=== PATIENT | female | born 1955 | race Caucasian/White ===

== ENCOUNTER 2020-02-13 09:29 | Outpatient (CLI) | payer MEDICARE, SELFPAY ==
--- NOTE | ~2020-02-13 | MM_ITS ---
EXAMINATION: MM screening isabell BI w pilar HISTORY: Screening mammogram TECHNIQUE: Craniocaudal and mediolateral oblique 3-D tomosynthesis images were obtained and synthetic 2-D images were generated. CAD analysis was submitted and interpreted. COMPARISON: 12/31/2018, 12/19/2017 bilateral digital screening mammogram examinations BREAST PARENCHYMAL COMPOSITION: The breasts are almost entirely fatty. FINDINGS: There is no evidence of suspicious mass, calcification, or architectural distortion to sugg est malignancy in either breast. There has been no suspicious interval change. IMPRESSION: 1. No mammographic evidence of malignancy. 2. Recommend routine screening mammography in one year. BI-RADS Category 1: Negative Reviewed, dictated and finalized at location A.
== END 2020-02-13 09:30 | disposition home or self-care (01) ==
PROVIDERS: PCP Family Medicine; Visit Provider Family Medicine
DX: Z12.31 Encounter for screening mammogram for malignant neoplasm of breast (principal)
CPT/HCPCS: 77063; 77067

== ENCOUNTER 2021-02-15 09:21 | Outpatient (CLI) | payer MEDICARE, SELFPAY ==
--- NOTE | ~2021-02-15 | MM_ITS ---
EXAMINATION: MM screening isabell BI w pilar HISTORY: Screening TECHNIQUE: Craniocaudal and mediolateral oblique 3-D tomosynthesis images were obtained and synthetic 2-D images were generated. CAD analysis was submitted and interpreted. COMPARISON: Comparison to multiple prior studies sequentially, with oldest reviewed study dated 12/13. BREAST PARENCHYMAL COMPOSITION: There are scattered areas of fibroglandular density. FINDINGS: There is no evidence of suspicious mass, calcification, or architectural distortion to sugg est malignancy in either breast. There has been no suspicious interval change. IMPRESSION: 1. No mammographic evidence of malignancy. 2. Recommend routine screening mammography in one year. BI-RADS Category 1: Negative Reviewed, dictated and finalized at location A.
== END 2021-02-15 09:22 | disposition home or self-care (01) ==
LOC: ANHIMG 09:23
PROVIDERS: PCP Family Medicine; Visit Provider Family Medicine
DX: Z12.31 Encounter for screening mammogram for malignant neoplasm of breast (principal)
CPT/HCPCS: 77063; 77067

== ENCOUNTER 2022-04-27 09:47 | Outpatient (CLI) | payer MEDICARE, SELFPAY ==
--- NOTE | ~2022-04-27 | MM_ITS ---
EXAMINATION: MM screening isabell BI w pilar HISTORY: Screening mammogram TECHNIQUE: Craniocaudal and mediolateral oblique 3-D tomosynthesis images were obtained and synthetic 2-D images were generated. CAD analysis was submitted and interpreted. COMPARISON: 02/15/2021, 02/13/2020, 12/31/2018 bilateral screening mammogram examinations BREAST PARENCHYMAL COMPOSITION: There are scattered areas of fibroglandular density. FINDINGS: There is no evidence of suspicious mass, calcification, or architectural distortion to sugg est malignancy in either breast. There has been no suspicious interval change. IMPRESSION: 1. No mammographic evidence of malignancy. 2. Recommend routine screening mammography in one year. BI-RADS Category 1: Negative Reviewed, dictated and finalized at location A.
== END 2022-04-27 09:48 | disposition home or self-care (01) ==
LOC: ANHIMG 09:49
PROVIDERS: PCP Family Medicine; Visit Provider Family Medicine
DX: Z12.31 Encounter for screening mammogram for malignant neoplasm of breast (principal)
CPT/HCPCS: 77063; 77067

== ENCOUNTER 2023-05-01 08:46 | Outpatient (CLI) | payer MEDICARE, SELFPAY ==
--- NOTE | ~2023-05-01 | DEXA_ITS ---
Bone Density Report Name: ALFREDITO CAMARGO Age: 68 Sex: Female Ethnicity: White Date of : 1955 Indication: postmenopausal; screening for osteoporosis; hysterectomy; rheumatoid arthritis; Referring Provider: LIZETTE, CLAYTON Candelraio Study: Bone densitometry was performed. Exam Date: May 01, 2023 Accession number: [id number] Bone Density: Region BMD T-score Z-score Classification AP Spine(L1-L4) 0.931 -1.1 1.0 Osteopenia Femoral Neck (Left) 0.781 -0.6 1.1 Normal Total Hip (Left) 0.887 -0.5 1.0 Normal Femoral Neck (Right) 0.792 -0.5 1.2 Normal Total Hip (Right) 0.901 -0.3 1.1 Normal Total Hip Mean 0.894 -0.4 1.1 Normal World Health Organization criteria for BMD impression classify patients as: Normal (T-score at or above -1.0), Osteopenia (T-score between -1.0 and -2.5), or Osteoporosis (T-score at or below -2.5). 10-year Fracture Risk(1): Major Osteoporotic Fracture 9.8% Hip Fracture 0.8% Reported Risk Factors: [place] (), Neck BMD=0.781, BMI=31.5, rheumatoid arthritis (1) FRAX(R) Version 3.08. Fracture probability calculated for an untreated patient. Fracture probability may be lower if the patient has received treatment. Clinical Information Provided by Patient: Has rheumatoid arthritis Has used the following medications: Vitamin D, Calcium Has the following medical conditions: Hysterectomy Patient maximum height was 62 Menopause Age: 29 Drinks caffeinated beverages Onset of menses at age 11 Number of children 2 Impression: The patient has low bone mass, based on the Total Spine T-score. The patient has an estimated ten-year risk of hip fracture of 0.8% and an estimated ten-year risk of major fracture of 9.8%, based on the WHO FRAX algorithm. Discussion: BONE DENSITY IS LOW AT ONE OR MORE SKELETAL SITES. This patient's lowest T-score is low at one or more skeletal sites. It meets the World Health Organization's (WHO) criteria for ?low bone mass? (T-score between -1.0 and -2.5). The patient's 10-year risk of fracture as calculated by FRAX is less than the threshold where pharmacological therapy is recommended by the National Osteoporosis Foundation (NOF). However, all treatment decisions require clinical judgment and consideration of individual patient factors, including patient preferences, comorbidities, previous drug use, risk factors not captured in the FRAX model (e.g., frailty, falls, vitamin D deficiency, increased bone turnover, interval significant decline in bone density) and possible under or overestimation of fracture risk by FRAX. The patient should follow a healthful lifestyle (good nutrition with adequate calcium and vitamin D, and appropriate weight-bearing exercise). Follow-Up: Consider repeating this study in 2 to 3 years to reassess this patient's st
--- NOTE | ~2023-05-01 | MM_ITS ---
EXAMINATION: MM screening isabell BI w pilar HISTORY: Screening mammogram TECHNIQUE: Craniocaudal and mediolateral oblique 3-D tomosynthesis images were obtained and synthetic 2-D images were generated. CAD analysis was submitted and interpreted. COMPARISON: 04/27/2022, 02/15/2021, 02/13/2020 bilateral screening mammogram examinations BREAST PARENCHYMAL COMPOSITION: There are scattered areas of fibroglandular density. FINDINGS: There is no evidence of suspicious mass, calcification, or architectural distortion to sugg est malignancy in either breast. There has been no suspicious interval change. IMPRESSION: 1. No mammographic evidence of malignancy. 2. Recommend routine screening mammography in one year. BI-RADS Category 1: Negative Reviewed, dictated and finalized at location A.
== END 2023-05-01 08:47 | disposition home or self-care (01) ==
LOC: ANHIMG 08:49
PROVIDERS: PCP Family Medicine; Visit Provider Family Medicine
DX: Z12.31 Encounter for screening mammogram for malignant neoplasm of breast (principal); Z78.0 Asymptomatic menopausal state; M85.88 Other specified disorders of bone density and structure, other site
CPT/HCPCS: 77063; 77067; 77080

== ENCOUNTER 2024-05-14 12:38 | Outpatient (CLI) | payer MEDICARE, SELFPAY ==
--- NOTE | ~2024-05-14 | MM_ITS ---
EXAMINATION: MM screening isabell BI w pilar HISTORY: Screening TECHNIQUE: Craniocaudal and mediolateral oblique 3-D tomosynthesis images were obtained and synthetic 2-D images were generated. CAD analysis was submitted and interpreted. COMPARISON: Comparison to multiple prior studies sequentially, with oldest reviewed study dated 12/27. BREAST PARENCHYMAL COMPOSITION: Not dense: There are scattered areas of fibroglandular density. FINDINGS: There is no evidence of suspicious mass, calcification, or architectural distortion to sugg est malignancy in either breast. There has been no suspicious interval change. IMPRESSION: 1. No mammographic evidence of malignancy. 2. Recommend routine screening mammography in one year. BI-RADS Category 1: Negative Reviewed, dictated and finalized at location B.
== END 2024-05-14 12:39 | disposition home or self-care (01) ==
PROVIDERS: PCP Family Medicine; Visit Provider Family Medicine
DX: Z12.31 Encounter for screening mammogram for malignant neoplasm of breast (principal)
CPT/HCPCS: 77063; 77067

== ENCOUNTER 2024-07-16 10:02 | Outpatient (CLI) | payer MEDICARE, SELFPAY ==
--- NOTE | 2024-07-17 12:54 | WPDPFTINT ---
PFT Procedure Performed PFT Procedure Performed Spirometry with Pre/Post Bronchodilator Plethysmography (Lung Vol) Diffusing Cap (DLCO) Flow Vol Loop PFT Interpretation Lung volumes were measured with the body plethysmography method. Lung volumes are unremarkable. Spirometry showed normal expiratory flow rates and a normal FEV1 to FVC ratio of 81%. Following administration of a bronchodilator there was no significant increase in expiratory flow rates. Lung diffusion capacity is within the normal range at 96% predicted. The flow-volume loop is unremarkable. Impression: Spirometry, lung volumes, and lung diffusion capacity all within the normal range.
== END 2024-07-16 10:03 | disposition home or self-care (01) ==
LOC: ANHPFT 10:05
PROVIDERS: PCP Family Medicine; Visit Provider Family Medicine
DX: R05.3 Chronic cough (principal)
CPT/HCPCS: 94060; 94726; 94729

== ENCOUNTER 2025-03-05 14:24 | Emergency (ER) | payer MEDICARE, SELFPAY ==
--- NOTE | ~2025-03-05 | CT_ITS ---
CTA chest abdomen pelvis Ordering provider: Mei Duckworth MD History: 70 years Female with . CP to jaw/back, h/o aneurysm; r/o aorta badness . Comparison: None. Technique: CT chest with IV contrast. CT abdomen and pelvis CT abdomen and pelvis with IV and with or al contrast. Radiation reduction technique utilized.The dose-length product was 548.20 mGy-cm. 100 mL Omnipaque 35 0 was given IV. FINDINGS: CHEST: --VISUALIZED THORACIC INLET: Normal. --MEDIASTINUM: Aorta/coronary arteries: Mild atheromatous disease. Ascending aorta measures 3.9 cm. Heart/other: The heart is not enlarged. Lymph nodes: No mediastinal or hilar adenopathy. --LUNGS: No pulmonary nodules or masses. No infiltrates or effusions. No pneumothorax. Dependent atel ectatic changes. --MUSCULOSKELETAL: Soft tissues: The superficial soft tissues are normal. Bones: Age appropriate degenerative changes of the spine. Bilateral sacroiliitis. Bilateral hip osteo arthritic changes. Pubic symphysitis. ABDOMEN/PELVIS: --MUSCULOSKELETAL: Bones: Age appropriate degenerative changes of the spine. No suspicious bony lytic or sclerotic lesio ns. Superficial soft tissues: The superficial soft tissues are normal. --UPPER ABDOMINAL ORGANS: Liver: Small hypodensities are seen adjacent to the gallbladder measuring 2.3 cm and 1.4 cm most like ly cysts. Gallbladder: Hyperdense focus in the gallbladder near to the fundus which may be a stone. Spleen: Normal. Stomach/duodenum: Normal. Pancreas: Normal. Adrenals: Normal. Kidneys: Normal. --PELVIC ORGANS: The bladder is normal. No bladder stones. --BOWEL AND MESENTERY: Colon: No evidence of diverticulitis.. Normal appendix. Small Bowel: Normal. No obstruction. Peritoneum/mesentery: No free air or free fluid. No mesenteric lymphadenopathy. --RETROPERITONEUM: Mild atheromatous disease of the abdominal aorta. The branches of the aorta are n ormal. No retroperitoneal lymphadenopathy. IMPRESSION: CHEST: 1. No pulmonary embolism or dissection. 2. The ascending aorta measures 3.9 cm 3. No acute cardiopulmonary pathology. ABDOMEN/PELVIS: 1. No evidence of aneurysmal dilatation seen. 2. Possible gallbladder stone versus calcification in the liver adjacent to the gallbladder. 3. Hypodensities in the liver most likely cysts. Ultrasound confirmation advised. 4. No evidence of appendicitis, diverticulitis or intestinal obstruction Reviewed, dictated and finalized at location A. IMPRESSION: CHEST: 1. No pulmonary embolism or dissection. 2. The ascending aorta measures 3.9 cm 3. No acute cardiopulmonary pathology. ABDOMEN/PELVIS: 1. No evidence of aneurysmal dilatation seen. 2. Possible gallbladder stone versus calcification in the liver adjacent to th e gallbladder. 3. Hypodensities in the liver most likely cysts. Ultrasound confirmation advis ed. 4. No evidence of appendicitis, diverticulitis or intestinal obstruction
--- NOTE | ~2025-03-05 | XR_ITS ---
EXAMINATION: XR chest 1V portable 03/05/2025 15:27 INDICATION: Chest pain PROCEDURE: AP portable chest COMPARISON: No prior studies for comparison. FINDINGS: The lungs are clear. The cardiomediastinal silhouette is within normal limits. There are no pleural effusions. There is no pneumothorax suspected. IMPRESSION: 1: NO ACUTE CARDIOPULMONARY DISEASE. Reviewed, dictated and finalized at location A.
[2025-03-05 14:28] VITALS: BP 136/90; PULSE 76; RESP 16; TEMP 36.8; O2SAT 97
--- NOTE | 2025-03-05 14:31 | ECG_ITS ---
Test Date: 2025-03-05 14:35:29 Measurements Intervals [place] Rate: 67 P: 29 ID: [id number] QRS: -34 QRSD: 89 T: 12 QT: 402 QTc: 425 Interpretive Statements SINUS RHYTHM LEFT AXIS DEVIATION LOW QRS VOLTAGE IN PRECORDIAL LEADS POSSIBLE RIGHT VENTRICULAR CONDUCTION DELAY POSSIBLE ANTERIOR MYOCARDIAL INFARCTION , PROBABLY OLD ABNORMAL ECG No previous ECG available for comparison Electronically Signed On 03-05-2025 14:56:30 CDT by Arnoldo Mercedes D.O.
--- OUTSIDE RECORDS SUMMARY | 2025-03-05 14:36 | XMS_ITS ---
Author Organization [facility] Address [address] [place] [address] Care Team Providers Care Diamond Expert Name Role Phone Shira Alcocer MD Primary Care Provider [phone] Derrick Varghese MD Unavailable Saroj Cornejo [facility] Unavailable Unavaila ble RxHI Specialty Therapies - REMICADE 600 mg IV EVERY 8 WEEKS Status:Enrolled (Active) Start date:02/07/2025 Enrollment date:02/07/2025 Linked medications:infliximab (Active) Related program episode:Home Infusion (Active) Overview Cutover complete Case Team Name Relationship Phone Saroj Cornejo [facility](Responsible Staff) Pharma cist Continued Care and Services Coordination
--- OUTSIDE RECORDS SUMMARY | 2025-03-05 14:36 | XMS_ITS ---
Author Organization [facility] Address [address] [place], [place] [id number] Care Team Providers Care Custodial Engineer Name Role Phone HARPREET CASTILLO Unavailable [phone] Shira Alcocer Unavailable Unavailable Allergies Allergen (clinical drug ingredient) Drug/Non Drug Allergy documented on EMR Reaction Allergy Type Onset Date Status cefaclor Ceclor (uncoded) Unknown Allergy 10/23/2019 ac tive REASON FOR VISIT toes piling up Vital Signs Weight 169 lbs 11/28/2024 Weight-kg 76.66 kg 11/28/2024 Height 61.00 in 11/28/2024 Height-cm 154.94 cm 11/28/2024 BMI 31.93 kg/m2 11/28/2024 Encounters Encounter Location Date Provider Diagnosis [facility] [address] [place], [place] [id number] 11/28/2024 HARPREET CASTILLO Metatarsalgia of right foot M77.41 ; 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 ; Other specified rheumatoid arthritis, right ankle and foot M06.871 ; Other specified rheumatoid arthritis, left ankle and foot M06.872 ; Hammer toe of right foot M20.41 ; Pain in right foot M79.671 and Left foot pain M79.672 Assessments Encounter Date Diagnosis (ICD Code) Assessment Notes Treatment Notes Treatment Clinical Notes Section Notes 11/28/2024 Metatarsalgia of right foot (ICD-10 - M77.41) 11/28/2024 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) 11/28/2024 Other specified rheumatoid arthritis, right ankle and foot (ICD-10 - M06.871) 11/28/2024 Other specified rheumatoid arthritis, left ankle and foot (ICD-10 - M06.872) 11/28/2024 Hammer toe of right foot (ICD-10 - M20.41) 11/28/2024 Pain in right foot (ICD-10 - M79.671) 11/28/2024 Left foot pain (ICD-10 - M79.672) 11/28/2024 Other Following skin prep, a total of 3 ccs of a 1-1-1 mix of 0.5% marcaine plain, Kenalog, and dexamethasone sodium phosphate was injected into the patients right second interspace Orthotic dispense: The orthotic devices were dispensed and fitted. It was noted that the orthotic conformed well to the patients foot in the subtalar joint neutral position. Plan Of Treatment Treatment Notes Assessment Notes Other Following skin prep, a total of 3 ccs of a 1-1-1 mix of 0.5% marcaine plain, Kenalog, and dexamethasone sodium phosphate was injected into the patients right second interspace Orthotic dispense: The orthotic devices were dispensed and fitted. It was noted that the orthotic conformed well to the patients foot in the subtalar joint neutral position. Progress Notes * ROVERTO CAMARGOOB:1955 ( 70 yo F)Acc No.[id number]:11/28/2024 Patient: ALFREDITO BARKER Provider: Elaine Castillo DPM :1955 A ge:69 Y S ex:Female Date:11/28/2024 Address:[address] [place] [address] Subjective: * Chief Complaints: * 1 . Toes piling up. * HPI: H PI: New Complaint E stablished patient presents with a new complaint. Patient complains of an issue to corn in both feet causing pain along with the second and third digit toes on both feet shifting over. Patient denies any injury. MA: IG. * ROS: G eneral / Constitutional: Patient denies c hills, fever, chills, fever. ? E ndocrine: Patient denies e xcessive thirst, frequent urination, excessive thirst, frequent urination. C ardiovascular: Patient denies s hortness of breath, chest pain, shortness of breath, chest pain. S kin: Patient denies m ole changes, mole changes. ? * Medical History: * Family History: F ather: PRN - Father: . M other: PRN - Mother: . * Social History: M igrated Social History: M igrated Social History: History of tobacco use : , Smoking Status : Never used tobacco , Alcohol intake :. * Allergies: C eclor: Allergy - Onset Date 10/23/2019. Objective: * Vitals: W t:169lbs, Wt-k.66 kg, Ht: 61.00 in, Ht-cm: 154.94 cm, BMI:31.93Index, Body Surface Area: 1.81. * Examination: P hysical Examination: Gen: T he patient is awake, alert, well developed, well groomed and well nourished. They are in no apparent distress. , The patient is awake, alert, well developed, well groomed and well nourished. They are in no apparent distress. . Musc: F oot structure is planus . No abnormalities noted. Muscle strength is 5/5 to all joints bilaterally. Dorsally contracted digits noted: 2-5 right. Prominent metatarsal heads braxton. Pain on palpation of right 2nd interspace , Foot structure is planus . No abnormalities noted. Muscle strength is 5/5 to all joints bilaterally. Dorsally contracted digits noted: 2-5 right. Prominent metatarsal heads braxton. Derm: S kin is warm and dry, with no rashes, good skin turgor and normal hair distribution. Hyperkeratotic lesions noted: medial 3rd PIPJ right , Skin is warm and dry, with no rashes, good skin turgor and normal hair distribution. Hyperkeratotic lesions noted: medial 3rd PIPJ right. Neuro: G rossly intact to light touch bilateral. , Grossly intact to light touch bilateral.. Vasc: D orsalis pedis and posterior tibial pulses 2+ bilaterally. No edema noted. Capillary fill time < 3 seconds to all digits. , Dorsalis pedis and posterior tibial pulses 2+ bilaterally. No edema noted. Capillary fill time < 3 seconds to all digits. . X -Ray: RIGHT FOOT T here is no evidence of fracture, dislocation, or other osseous lesions. . Assessment: * Assessment: 1. M moises's neuroma of right foot - G57.61 (Primary) 2 . M etatarsalgia of right foot - M77.41 3 . O ther specified rheumatoid arthritis, right ankle and foot - M06.871 4 . O ther specified rheumatoid arthritis, left ankle and foot - M06.872 5 . H ammer toe of right foot - M20.41 6 . P ain in right foot - M79.671 7 . L eft foot pain - M79.672 Plan: * Treatment: * Procedure Codes: 6 4455 N BLOCK INJ, PLANTAR DIGIT, Modifiers: RT , 23568 X-RAY EXAM OF FOOT, Modifiers: RT * Billing Information: * Visit Code: 75119 Office Visit, Est Pt., Level 3. Modifiers: 25 * Procedure Codes: 15883 N BLOCK INJ, PLANTAR DIGIT. Modifiers: RT [address]123 X-RAY EXAM OF FOOT. Modifiers: RT * Electronic signature of HARPREET CASTILLO DPM on 03/05/2025 at 07:46 AM CDT Sign off status: Pending * Provider: Elaine Castillo DPM Date: 0 11/28/2024 Generated for Baldomero mosher/Bobby/John on: 0 03/05/2025 07:46 AM CDT History and Physical Notes * HPI (History of Present Illness) Category Sub-Category Detail Notes Category Not es HPI New Complaint Established joana ent presents with a new complaint. Patient complains of an issue to corn in both feet causing pain along with the second and third digit toes on both feet shifting over. Patient denies any injury. MA: IG Examination Category Sub-Category Detail Notes Category Not es X-Ray RIGHT FOOT There is no evid ence of fracture, dislocation, or other osseous lesions. Physical Examination Gen: The patient is awake, alert, well developed, well groomed and well nourished. They are in no apparent distress. , The patient is awake, alert, well developed, well groomed and well nourished. They are in no apparent distress. Vasc: Dorsalis pedis and p osterior tibial pulses 2+ bilaterally. No edema noted. Capillary fill time < 3 seconds to all digits. , Dorsalis pedis and posterior tibial pulses 2+ bilaterally. No edema noted. Capillary fill time < 3 seconds to all digits. Neuro: Grossly intact to li ght touch bilateral. , Grossly intact to light touch bilateral. Musc: Foot structure is pl anus . No abnormalities noted. Muscle strength is 5/5 to all joints bilaterally. Dorsally contracted digits noted: 2-5 right. Prominent metatarsal heads braxton. Pain on palpation of right 2nd interspace , Foot structure is planus . No abnormalities noted. Muscle strength is 5/5 to all joints bilaterally. Dorsally contracted digits noted: 2-5 right. Prominent metatarsal heads braxton Derm: Skin is warm and dry , with no rashes, good skin turgor and normal hair distribution. Hyperkeratotic lesions noted: medial 3rd PIPJ right , Skin is warm and dry, with no rashes, good skin turgor and normal hair distribution. Hyperkeratotic lesions noted: medial 3rd PIPJ right
--- OUTSIDE RECORDS SUMMARY | 2025-03-05 14:36 | XMS_ITS | Encounter Summary ---
Author Organization [facility] Healthcare Address [address] [place] [address] Care Team Providers Care Music Agent Name Role Phone Shira Alcocer MD Primary Care Provider [phone] Derrick Varghese MD Unavailable Saroj Cornejo [facility] Unavailable Unavaila ble Encounter Details Date Type Department Care Team (Late st Contact Info) Description 03/03/2025 Home Infusion [facility] Home Infusion Therapy [address] [place] [address] Selam Brown RN Psoriatic arthritis mutilans (HCC) (Primary Dx) Social History Tobacco Use Types Packs/Day Years Used Date Smoking Tobacco: Never Passive Smoke Exposure: Past Smokeless Tobacco: Never Alcohol Use Standard Drinks/Week Comments Yes 0 (1 standard drink = 0.6 oz pur e alcohol) OASIS D0700: Social Isolation Answer Da te Recorded Frequency of experiencing loneliness or isolatio n Never 09/03/2024 AUDIT-C Answer Date Recorded Q1: How often do you have a drink containing alc ohol? Monthly or less 01/15/2025 Q2: How many drinks containi ng alcohol do you have on a typical day when you are drinking? 1 or 2 01/15/2025 Q3: How often do you have si x or more drinks on one occasion? 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[employer] Gender Identity Not on file Sexual Orientation Not on file documented as of this encounter Last Filed Vital Signs Vital Sign Reading Time Taken Comments Blood Pressure - - Pulse - - Temperature - - Respiratory Rate - - Oxygen Saturation - - Inhaled Oxygen Concentration - - Weight 68 kg (149 lb 14.6 oz) 03/04/2025 10:23 P M CDT Height 154.9 cm (5' 0.98) 03/04/2025 10:23 PM C DT Body Mass Index 28.34 03/04/2025 10:23 PM CDT documented in this encounter Ordered Prescriptions Prescription Sig Dispense Quantity Refills Last Filled Start Date End Date 0.9 % sodium chloride (sodium chloride 0.9%) infusionIndicatio ns:Psoriatic arthritis mutilans (HCC) Infuse 250 mL IV every 8 (eight) weeks Use as IVPB bag for inFLIXimab infusion 1250 mL 12/06/2024 6 diphenhydrAMINE (BENADRYL) 25 mg capsuleIndication s:Psoriatic arthritis mutilans (HCC) Take 1 tablet/capsule (25 mg total) by mouth every 8 (eight) weeks Take 30 minutes prior to infusion. 5 capsule 12/06/2024 6 acetaminophen (TYLENOL) 325 mg tabletIndications :Psoriatic arthritis mutilans (HCC) Take 2 tablets (650 mg total) by mouth every 8 (eight) weeks Take 30 minutes prior to infusion 10 tablet 12/06/2024 6 sodium chloride 0.9% flush syringeIndication s:Psoriatic arthritis mutilans (HCC) Infuse 10 mL IV as needed for line care 1000 mL 12/06/2024 6 inFLIXimab (REMICADE) 100 mg injectionIndicati ons:Psoriatic arthritis mutilans (HCC) Reconstitute each vial with 10 mL sodium chloride 0.9% for injection. Once reconstituted, draw up 600 mg (60 ml) and add to sodium chloride 0.9% for injection (bag). Infuse with 1.2 micron filter via pole mounted pump. Begin infusion within 4 hours of mixing. Infusion directions: Infuse 600mg (8mg/kg) of Infliximab (Remicade) in 250mL of Normal Saline over 1 hour at 250mL/hr with 1.2um filter every 8 weeks. 300 mL 12/06/2024 documented in this encounter Plan of Treatment Upcoming Encounters Date Type Department Care Team (Late st Contact Info) Description 03/03/2025 Plan of Care Documentation [address] [address] [address] [place] [address] documented as of this encounter Visit Diagnoses Diagnosis Psoriatic arthritis mutilans (HCC)- Primary documented in this encounter Care Teams Music Agent Relationship Specialty Start Date End Date Shira Alcocer MD [address] [address] PCP - General Family Practice 06/11/21 Derrick Varghese MD [address] [facility], [address] [address] PCP - Home Infusion Attending Internal Medicine 02/24/25 Saroj Cornejo, [facility] Pharmacist Pharmacy 03/04/25 documented as of this encounter
--- OUTSIDE RECORDS SUMMARY | 2025-03-05 14:36 | XMS_ITS | Encounter Summary ---
Author Organization [facility] Address [address] [place] [address] Phone Care Team Providers Care Coat Room Attendant Name Role Phone Shira Alcocer MD Primary Care Provider [phone] Derrick Varghese MD Unavailable [phone] Saroj Cornejo [facility] Unavailable Unavaila ble Encounter Details Date Type Department Care Team (Late st Contact Info) Description 07/17/2024 Orders Only [facility] Scanning, Provider Social History Tobacco Use Types Packs/Day Years Used Date Smoking Tobacco: Never Passive Smoke Exposure: Past Smokeless Tobacco: Never Alcohol Use Standard Drinks/Week Comments Yes 0 (1 standard drink = 0.6 oz pur e alcohol) OASIS D0700: Social Isolation Answer Da te Recorded Frequency of experiencing loneliness or isolatio n Never 03/08/2024 AUDIT-C Answer Date Recorded Q1: How often do you have a drink containing alcohol? 4 or more times a week 04/25/2023 Q2: How many drinks containi ng alcohol do you have on a typical day when you are drinking? 5 or 6 Q3: How often do you have si x or more drinks on one occasion? 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 Gender Identity Not on file Sexual Orientation Not on file documented as of this encounter Plan of Treatment Upcoming Encounters Date Type Department Care Team (Late st Contact Info) Description 03/03/2025 Plan of Care Documentation [address] [address] [address] [place] [address] documented as of this encounter Procedures Procedure Name Priority Date/Time Associated Diagnosis Comments SCAN - RADIOLOGY/IMAGING 07/17/2024 documented in this encounter Results * SCAN - RADIOLOGY/IMAGING (07/17/2024) Anatomical Region Laterality Modality Other us Provider Scanning Final Result documented in this encounter Visit Diagnoses Not on filedocumented in this encounter Care Teams Coat Room Attendant Relationship Specialty Start Date End Date Shira Alcocer MD [address] [address] PCP - General Family Practice 06/11/21 Derrick Varghese MD [address] [facility], [address] [address] PCP - Home Infusion Attending Internal Medicine 02/24/25 Saroj Cornejo, [facility] Pharmacist Pharmacy 03/04/25 documented as of this encounter
--- OUTSIDE RECORDS SUMMARY | 2025-03-05 14:36 | XMS_ITS | Clinical Summary ---
Author Organization [facility] Address [address] [place] [address] Phone Care Team Providers Care Feller Machine Operator Name Role Phone Moris Duncan MD Primary Care Provider [phone] Allergies Active Allergy Reactions Criticality Noted Date Comments Cefaclor Hives High 01/06/2014 Medications amitriptyline (ELAVIL) 25 mg tabletIndications :Lump or mass in breast 11/07/2013 Active HYDROCHLOROTHIAZI DE 25 mg Oral tabletIndications :Lump or mass in breast 11/25/2013 Active TOPROL XL 50 mg tabletIndications :Lump or mass in breast 10/24/2013 Active KLOR-CON M20 20 mEq tabletIndications :Lump or mass in breast 01/05/2014 Active simvastatin (ZOCOR) 20 mg tabletIndications :Lump or mass in breast 12/12/2013 Active MICARDIS 80 mg TabletIndications :Lump or mass in breast 10/24/2013 Active cholecalciferol, Vitamin D3, (VITAMIN D3) 2,000 unit TabletIndications :Lump or mass in breast Take by mouth. Active Fish Oil-DHA-EPA 1,200-144-216 mg CapsuleIndication s:Lump or mass in breast Take by mouth. Active aspirin (ECOTRIN EC) 81 mg Tablet, Delayed Release (E.C.)Indications :Lump or mass in breast Take 81 mg by mouth daily. Active amLODIPine (NORVASC) 2.5 mg tabletIndications :Diffuse cystic mastopathy, unspecified laterality,Family hx-breast malignancy 11/14/2015 Active conjugated estrogens (PREMARIN) 0.625 mg tabletIndications :Diffuse cystic mastopathy, unspecified laterality,Family hx-breast malignancy Take 0.625 mg by mouth daily. Active Active Problems Patient Care Coordination No te Formatting of this note migh t be different from the original. Primary Care: Moris Duncan MD Referring Provider: Deborah Quiroz MD [address] [facility] [address] [place] [address] Other: Problem Noted Date Diagnosed Date Diffuse cystic mastopathy 12/08/2014 Fibromyalgia Hypertension Osteopenia Resolved Problems Problem Noted Date Diagnosed Date Resolved Date Lump or mass in breast 01/02/201412/08 Family History Medical History Relation Name Comments Heart Disease Father Breast Cancer Maternal Aunt Stroke Maternal Grandfather Breast Cancer Maternal Grandmother Heart Disease Mother Heart Disease Paternal Grandfather Relation Name Status Comments Father Maternal Aunt Maternal Grandfather Maternal Grandmother Mother Paternal Grandfather Social History Tobacco Use Types Packs/Day Years Used Date Smoking Tobacco: Never Smokeless Tobacco: Never Alcohol Use Standard Drinks/Week Comments Yes 0 (1 standard drink = 0.6 oz pur e alcohol) moderate Comments No Sex and Gender Information Value Date Recorded Sex Assigned at Not on file Legal Sex Female 9:10 AM CDT Gender Identity Not on file Sexual Orientation Not on file Occupation Industry Job Start Date Job End Date Not on file Not on file Not on file Not on file Last Filed Vital Signs Vital Sign Reading Time Taken Comments Blood Pressure 115/77 12/19/2016 1:06 PM CDT Pulse 64 12/19/2016 1:06 PM CDT Temperature - - Respiratory Rate - - Oxygen Saturation - - Inhaled Oxygen Concentration - - Weight 79.8 kg (176 lb) 12/19/2016 1:06 PM CDT Height 157.5 cm (5' 2) 12/19/2016 1:06 PM CDT Body Mass Index 32.19 12/19/2016 1:06 PM CDT Plan of Treatment Health Maintenance Due Date Last Done Comments DTAP/TDAP/TD VACCINES (1 - Tdap) 1973 COLORECTAL SCREENING 1999 Colorectal Cancer Screening 1999 FIT-DNA Q 3 years 1999 FIT/FOBT Q 1 year 1999 Flex Sig/CT Colonography Q 5 years 1999 PNEUMOCOCCAL VACCINE 50+ YEA RS (1 of 1 - PCV) 02/23/2004 ZOSTER VACCINE (1 of 2) 02/23/2004 BREAST CANCER SCREENING 12/19/2017 12/20/19 17, 12/14/2015, 12/08/2014, Additional history exists OSTEOPOROSIS SCREENING 2019 INFLUENZA VACCINE (#1) 2024 RSV VACCINE (60+ or ) (1 - 1-dose 75+ series) 2029 Procedures Procedure Name Priority Date/Time Associated Diagnosis Comments MAMMO 3D DAVID DIAGNOSTIC BILAT W OR WO CAD Routine 12/19/2016 12:28 PM CDT Diffuse cystic mastopathy, unspecified laterality Family hx-breast malignancy from Last 3 Months or Most Recently Relevant to Health Maintenance Results * MAMMO DIG DIAG BILAT W 3D DAVID (12/19/2016 12:28 PM CDT) Anatomical Region Laterality Modality Breast Bilateral Mammography 12/19/2016 12:2 8 PM CDT Impressions 12/20/2016 8:07 AM CDT IMPRESSION: No mammographic evidence of malignancy. RECOMMENDATIONS: Routine mammogram in one year. Dictated from: Izzy Hooker Narrative 12/20/2016 8:07 AM CDT EXAM: BILATERAL DIAGNOSTIC FULL-FIELD DIGITAL MAMMOGRAPHY WITH CAD WITH 3D TOMOSYNTHESIS DATE: 12/19/2016 12:28 PM HISTORY: Family history of breast cancer in the patient's mother, maternal aunt and maternal cousin. Previous benign excisional biopsy in the lateral right breast. Annual follow-up. TECHNIQUE: Mediolateral oblique and craniocaudal views of both breasts were performed using full field digital mammography. Low-dose full-field digital breast tomosynthesis examination was performed with 2D and 3D acquisitions. Examination is read in conjunction with computer aided detection. COMPARISON: Comparison exams date back to July 2010. BREAST COMPOSITION: Scattered fibroglandular densities. FINDINGS: No suspicious findings are seen on the current mammogram. Since the prior study, there has been no significant change. CAD detected no significant abnormality. OVERALL ASSESSMENT: BI-RADS Category 1 - Negative. Procedure Note Gaurav Bhat MD - 12/20/2016 EXAM: BILATERAL DIAGNOSTIC FULL-FIELD DIGITAL MAMMOGRAPHY WITH CAD WITH 3D TOMOSYNTHESIS DATE: 12/19/2016 12:28 PM HISTORY: Family history of breast cancer in the patient's mother, maternal aunt and maternal cousin. Previous benign excisional biopsy in the lateral right breast. Annual follow-up. TECHNIQUE: Mediolateral oblique and craniocaudal views of both breasts were performed using full field digital mammography. Low-dose full-field digital breast tomosynthesis examination was performed with 2D and 3D acquisitions. Examination is read in conjunction with computer aided detection. COMPARISON: Comparison exams date back to July 2010. BREAST COMPOSITION: Scattered fibroglandular densities. FINDINGS: No suspicious findings are seen on the current mammogram. Since the prior study, there has been no significant change. CAD detected no significant abnormality. OVERALL ASSESSMENT: BI-RADS Category 1 - Negative. IMPRESSION IMPRESSION: No mammographic evidence of malignancy. RECOMMENDATIONS: Routine mammogram in one year. Dictated from: Izzy Hooker Faby Stanton MD MAMMO ORDERABLES Final Resul t from Last 3 Months or Most Recently Relevant to Health Maintenance Care Teams Feller Machine Operator Relationship Specialty Start Date End Date Moris Duncan MD [address] [place] [address] PCP - General Family Practice 01/06/14
--- OUTSIDE RECORDS SUMMARY | 2025-03-05 14:36 | XMS_ITS | Clinical Summary ---
Author Organization [facility] [employer] Address [address] [place] [address] Care Team Providers Care Retail Advertising Sales Manager Name Role Phone Moris Duncan MD Primary Care Provider [phone] Source Comments [facility] [employer],non-owned Affiliates and Associated Physician Practices is amultiple site organization consisting of ambulatory clinics and hospital sitesin [place], [place], [place] and [place]. This disclosure is being madepursuant to the Care Everywhere program and may not contain all information available regarding this patient. Last updated 18.[facility] Allergies No known active allergies Medications * Be aware that medications may not be up to date on this document. Alwaysverify current medications with the patient. amLODIPine (NORVASC) 5 MG tablet Take 5 mg by mouth once daily 07/02/2021 Active calcium carbonate-juwan calciferol 250-125 MG-UNIT tablet Take 1 tablet by mouth once daily Active Cholecalciferol 50 MCG (1999 UT) once daily Active hydroCHLOROthia zide (HYDRODIURIL) 25 MG tablet Take 25 mg by mouth once daily 07/29/2021 Active simvastatin (ZOCOR) 20 MG tablet Take 20 mg by mouth once daily 08/20/2021 Active telmisartan (MICARDIS) 80 MG tablet Take 80 mg by mouth once daily 07/02/2021 Active potassium chloride ER (KLOR-CON M) 20 MEQ tablet Take 20 mEq by mouth once daily 06/22/2021 Active Multiple Vitamin (MULTI-VITAMINS ) TABS once daily Active [place]-3 Fatty Acids (KP FISH OIL) 1200 MG Active estradiol (ESTRACE) 0.1 MG/GM vaginal cream Insert into the vagina every 7 days Active ketorolac LS (ACULAR LS) 0.4 % ophthalmic solution Instill 1 drop into left eye 08/19/2021 Active Active Problems Problem Noted Date Diagnosed Date Elevated liver enzymes 09/22/2021 Overview (02/24/2022): 02/21/22 Fibroscan CAP 264, LSM 3.4 kPa Immunizations Immunization Administration Dates Next Due [employer] primary monoval ent 12+ yr 0.3mL Purple cap 05/18/2021,11/30/2020,11/09/2020 Family History Medical History Relation Name Comments CAD (Coronary Artery Disease) Brother Parkinson's Disease Brother Multiple Sclerosis Daughter Alzheimer's Disease Father CAD (Coronary Artery Disease) Father CAD (Coronary Artery Disease) Mother Parkinson's Disease Sister Relation Name Status Comments Brother Daughter Father Mother Sister Social History Tobacco Use Types Packs/Day Years Used Date Smoking Tobacco: Never Smokeless Tobacco: Never Tobacco Cessation:Counseling Given: Not Answered Alcohol Use Standard Drinks/Week Comments Yes 2 (1 standard drink = 0.6 oz pur e alcohol) vodka drinks AUDIT-C Answer Date Recorded Q1: How often do you have a drink containing alc ohol? 2-3 times a week 09/22/2021 Q2: How many drinks containi ng alcohol do you have on a typical day when you are drinking? 3 or 4 09/22/2021 Q3: How often do you have si x or more drinks on one occasion? Less than monthly 09/22/2021 Comments Unknown Sex and Gender Information Value Date Recorded Sex Assigned at Not on file Legal Sex Female 5:58 PM PROGRAM/MUSIC DIRECTOR Gender Identity Not on file Sexual Orientation Not on file Last Filed Vital Signs Vital Sign Reading Time Taken Comments Blood Pressure 130/88 08/18/2022 10:45 AM PROGRAM/MUSIC DIRECTOR Pulse 85 08/18/2022 10:45 AM PROGRAM/MUSIC DIRECTOR Temperature 36.6 C (97.8 F) 08/18/2022 10:45 AM PROGRAM/MUSIC DIRECTOR Respiratory Rate 14 08/18/2022 10:45 AM PROGRAM/MUSIC DIRECTOR Oxygen Saturation 100% 08/18/2022 10:45 AM PROGRAM/MUSIC DIRECTOR Inhaled Oxygen Concentration - - Weight 77.1 kg (170 lb) 08/18/2022 10:45 AM PROGRAM/MUSIC DIRECTOR Height 157.5 cm (5' 2.01) 08/18/2022 10:45 AM C Body Mass Index 31.09 08/18/2022 10:45 AM PROGRAM/MUSIC DIRECTOR Plan of Treatment Health Maintenance Due Date Last Done Comments BONE DENSITY TESTING 1955 COLOGUARD (AGES 45-75) - COLON CA SCREENING 1954 COLON MONITORING 1954 COLONOSCOPY - COLON CA SCREENING 1954 CT COLONOGRAPHY - COLON CA SCREENING 1954 Colorectal Cancer Screening 1954 FIT - COLON CA SCREENING 1954 FLEX SIG - COLON CA SCREENING 1954 MAMMOGRAM 1954 MEDICARE AWV 12 MONTHS 1954 DTAP/TDAP/TD VACCINES (1 - Tdap) 1973 PNEUMOCOCCAL VACCINE 50+ (1 of 1 - PCV) 02/23/2004 ZOSTER VACCINE (1 of 2) 02/23/2004 COVID-19 VACCINE (4 - season) 2024 05/18/2021, 11/30/2020, 11/09/2020 DEPRESSION SCREENING 10/02/2024 SCREENING FOR DIABETES 02/01/2025 , 09/22/2021, 08/11/2021, Additional history exists INFLUENZA VACCINE (Season Ended) 2025 06/03/2022, 05/18/2021, 07/01/2020, Additional history exists Respiratory Syncytial Virus (RSV) Vaccine Pt: or over 60 yrs (1 - 1-dose 75+ series) 2029 HEPATITIS C SCREENING Completed 09/22/2021, 021 HEPATITIS B VACCINE Aged Out No longe r eligible based on patient's age to complete this topic HIB VACCINE Aged Out No longer eligi ble based on patient's age to complete this topic HPV VACCINE Aged Out No longer eligi ble based on patient's age to complete this topic MENINGOCOCCAL (Group B) VACCINE SHARED DECISION-MAKING Aged Out No longer eligible based on patient's age to complete this topic MENINGOCOCCAL GROUPS A/C/Y/W VACCINE Aged Out No longer eligible based on patient's age to complete this topic Goals Goal Patient Goal Type Associated Problems Recent Progress Patient-Stated? Author Medication Management General On track( 022 10:52 AM PROGRAM/MUSIC DIRECTOR) Dnote Reveles, RN Note: Expected end date: Interventions: Take all medications as prescribed Let your doctor know right away about any changes in your medications Make sure to request a refill of your medication at least one week prior to your last dose Procedures Procedure Name Priority Date/Time Associated Diagnosis Comments COMPREHENSIVE METABOLIC PANEL Routine 09/22/2021 12:40 PM PROGRAM/MUSIC DIRECTOR Elevated liver enzymes Liver cyst HEPATITIS C ANTIBODY Routine 09/22/2021 12:40 PM PROGRAM/MUSIC DIRECTOR Elevated liver enzymes Liver cyst from Last 3 Months or Most Recently Relevant to Health Maintenance Results * (ABNORMAL) COMPREHENSIVE METABOLIC PANEL (09/22/2021 12:40 PM PROGRAM/MUSIC DIRECTOR) BUN 13 7 - 26 mg/dL 09/22/2021 2:10 PM [facility] Creatinine 0.58 0.56 - 0.96 mg/dL 09/22/2021 2:10 PM [facility] Sodium 137 136 - 145 mmol/L 09/22/2021 2:10 PM [facility] Potassium 3.7 3.5 - 4.5 mmol/L 09/22/2021 2:10 PM [facility] Chloride 104 98 - 107 mmol/L 09/22/2021 2:10 PM [facility] CO2 27 22 - 29 mmol/L 09/22/2021 2:10 PM [facility] Glucose 141(H) 70 - 115 mg/dL 09/22/2021 2:10 PM [facility] Calcium 9.6 8.4 - 10.2 mg/dL 09/22/2021 2:10 PM [facility] Protein Total 7.5 6.0 - 8.3 g/dL 09/22/2021 2:10 PM [facility] Albumin 3.7 3.4 - 5.0 g/dL 09/22/2021 2:10 PM [facility] Bilirubin Total 0.4 0.2 - 1.2 mg/dL 09/22/2021 2:10 PM [facility] Alkaline Phosphatase 56 40 - 150 U/L 09/22/2021 2:10 PM [facility] ALT 41 5 - 55 U/L 09/22/2021 2:10 PM [facility] AST 33 5 - 34 U/L 09/22/2021 2:10 PM [facility] Anion Gap 10 8 - 18 09/22/2021 2:10 PM [facility] BUN/Creatinine Ratio 22 7 - 23 09/22/2021 2:10 PM [facility] Osmolality Calculated 286 270 - 300 mOsm/kg 09/22/2021 2:10 PM [facility] Albumin/Globulin Ratio 1.0(L) 1.1 - 2.3 09/22/2021 2:10 PM [facility] eGFR by CKD-EPI >90 >=90 mL/min/1.7 3 m2 09/22/2021 2:10 PM [facility] Blood BLOOD SPECIMEN / Unknown Lab Venipuncture / Unknown 09/22/2021 12:40 PM PROGRAM/MUSIC DIRECTOR 09/22/2021 1:42 PM [facility] Tez Cárdenas MD LAB - CHEMISTRY ORDERA BLES Final Result [facility] [address] [place] [address], [facility] [phone] * HEPATITIS C ANTIBODY (09/22/2021 12:40 PM PROGRAM/MUSIC DIRECTOR) Hepatitis C Antibody Non-react estrada Non-reac tive 09/22/2021 2:36 PM [facility] Comment:Hepatitis C Antibody screen indicates no serologic evidence of past or current infection with Hepatitis C Virus. Patients with unexplained liver disease who are immunocompromised or suspected of having acute Hepatitis C infection may benefit from Nucleic Acid Test (MEME) for Hepatitis C Viral RNA to confirm Hepatitis C status. Blood BLOOD SPECIMEN / Unknown Lab Venipuncture / Unknown 09/22/2021 12:40 PM PROGRAM/MUSIC DIRECTOR 09/22/2021 1:30 PM PROGRAM/MUSIC DIRECTOR Tez Cárdenas MD LAB - CHEMISTRY ORDERA BLES Final Result [facility] [address] [place] [address], [place] [phone] from Last 3 Months or Most Recently Relevant to Health Maintenance Insurance [employer] MEDICARE AETNA MEDICARE ADV AETNA Care Teams Retail Advertising Sales Manager Relationship Specialty Start Date End Date Moris Duncan MD [address] [place] [address] PCP - General 09/08/22
--- OUTSIDE RECORDS SUMMARY | 2025-03-05 14:36 | XMS_ITS | Referral Summary ---
Author Organization [facility] al Address [address] [place] [address] Care Team Providers Care Organizational Effectiveness Director Name Role Phone Shira Alcocer MD Primary Care Provider [phone] Derrick Varghese MD Unavailable Saroj Cornejo [facility] Unavailable Unavaila ble Encounters Date Type Department Care Team Description 03/03/2025 Home Infusion [facility] Home Infusion Therapy [address] [place] [address] Selam Brown RN Psoriatic arthritis mutilans (HCC) (Primary Dx) 03/03/2025 7:30 AM CDT Home Care Visit [address] [place] [address] Hank Conteh RN SN NON OASIS RECERTIFICATION 02/12/2025 2:30 PM CDT Office Visit [facility] Rheumatology [address] [facility] [address] [facility] [address] [place] [address] [place] [phone] Pain of left hip (Primary Dx) 02/03/2025 9:00 AM CDT Home Care Visit [address] [place] [address] Talia Reynolds RN SN INFUSION TREATMENT ROOM 01/15/2025 1:30 PM CDT Office Visit [facility] Rheumatology [address] [facility] [address] [place] [address] [place] [address] Psoriatic arthritis (HCC) (Primary Dx); Anterior uveitis; 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 12/10/2024 9:30 AM CDT - 12/10/2024 11:59 PM CDT Hospital Encounter [address] [address] Discharge Disposition: Discharge to home or self care 12/10/2024 9:00 AM CDT Home Care Visit [address] [place] [address] Chang Jeffery RN SN INFUSION TREATMENT ROOM 12/05/2024 Orders Only [facility] Home Care Services [address] [place] [address] Yung Dubose, [facility] 12/04/2024 Orders Only [facility] Rheumatology [address] [facility] [address] [place] [address] [place] [phone] Aissatou Shi RMA 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 (Primary Dx) from Last 3 Months Allergies Active Allergy Reactions Criticality Noted Date Comments Cefaclor Unknown,Hives Medium 01/06/2014 Other Unknown 10/23/2019 Medications estradioL (ESTRACE) 0.01 % (0.1 mg/gram) vaginal creamIndications :Atrophic Vaginitis associated with Menopause Insert 2 g into the vagina 2 (two) times a week Active docosahexanoic acid/epa (FISH OIL ORAL)Indications :daily Take 1 capsule by mouth daily Active hydroCHLOROthiaz jefferson (HYDRODIURIL) 25 mg tabletIndication s:hypertension Take 1 tablet (25 mg total) by mouth daily Active multivitamin tabletIndication s:Vitamin Deficiency Prevention Active potassium chloride ER (KLOR-CON) 20 mEq CR tabletIndication s:hypokalemia Take 1 tablet (20 mEq total) by mouth daily Active simvastatin (ZOCOR) 20 mg tabletIndication s:hyperlipidemia Take 1 tablet (20 mg total) by mouth nightly Active cholecalciferol (VITAMIN D-3) 2,000 unit tabletIndication s:Prevention of Vitamin D Deficiency Take 1 tablet (2,000 Units total) by mouth daily Active acyclovir (ZOVIRAZ) 5 % creamIndications :genital herpes simplex,as needed Apply 1 application topically 5 (five) times a day as needed Active fluticasone propionate (FLONASE) 50 mcg/actuation nasal sprayIndications :Allergic Rhinitis,as needed Administer 1 spray into each nostril daily 09/24/20 20 Active prednisoLONE acetate (PRED FORTE) 1 % ophthalmic suspensionIndica tions:Severe Ocular Inflammation Administer 1 drop into the right eye as needed (as needed ) 11/09/19 21 Active amLODIPine (NORVASC) 5 mg tabletIndication s:hypertension Take 1 tablet (5 mg total) by mouth daily 07/02/20 21 Active telmisartan (MICARDIS) 80 mg tabletIndication s:hypertension Take 1 tablet (80 mg total) by mouth daily 07/02/20 21 Active triamcinolone (KENALOG) 0.1 % creamIndications :Skin Inflammation,ski n rash Apply 1 application topically as needed for irritation eczema 10/12/19 22 Active 0.9 % sodium chloride ([facility] sodium chloride 0.9%) injectionIndicat ions:Maintain Patency of Indwelling Vascular Catheter Infuse 10 mL into a venous catheter as needed for line care Active calcium carbonate (CALCIUM 600 ORAL)Indications :Osteopenia Take 1,200 mg by mouth daily. Indications: decreased calcification or density of bone Active predniSONE (DELTASONE) 20 mg tablet Take 1 tablet (20 mg) by mouth daily 14 tablet 05/10/20 23 Active Additional Information Patient not taking.Reported on 02/12/2025 meloxicam (MOBIC) 7.5 mg tabletIndication s:Rheumatoid Arthritis Take 2 tablets (15 mg total) by mouth daily as needed for pain 180 tablet 3 05/22/20 23 Active acetaminophen ER (TYLENOL) 650 mg 8 hr tabletIndication s:infusion reaction prophylaxis Take 1 tablet (650 mg total) by mouth director of graduate admissions Please provide 650 mg acetaminophen by mouth 30 minutes prior to Remicade infusion Active diclofenac sodium (VOLTAREN) 1 % gelIndications:O steoarthritis,as needed Apply 2 g topically 4 (four) times a day 100 g 2 12/22/19 24 Active ketoconazole (NIZORAL) 2 % shampoo 08/12/20 24 Active 0.9 % sodium chloride (sodium chloride 0.9%) 0.9% infusion 06/13/20 24 Active methylPREDNISolo ne (MEDROL DOSEPACK) 4 mg Dosepack 07/05/20 24 Active predniSONE (DELTASONE) 10 mg tabletIndication s:Psoriatic arthritis (HCC) Take 1 tablet (10 mg) by mouth daily 30 tablet 10/10/19 25 Active Additional Information Patient not taking.Reported on 02/12/2025 inFLIXimab (REMICADE) 100 mg injectionIndicat ions:Psoriatic Arthritis Infuse 60 mL (600 mg total) into a venous catheter every 8 (eight) weeks Infuse 600 mg of Remicade in 250 mL of Normal Saline and infuse with 1.2um filter over 1 hour. 12/06/19 25 026 Active diphenhydrAMINE (BENADRYL) 25 mg capsuleIndicatio ns:infusion pre-medication Take 1 tablet/capsule (25 mg total) by mouth every 8 (eight) weeks Take by mouth 30 minutes prior to infusion. 12/06/19 25 Active Additional Information Patient not taking.Reported on 02/12/2025 famotidine (PEPCID) 40 mg tabletIndication s:infusion pre-medication Take 1 tablet (40 mg total) by mouth every 8 (eight) weeks Take by mouth 30 minutes prior to infusion 12/06/19 25 026 Active Additional Information Patient not taking.Reported on 02/12/[address] (MYFORTIC) 360 mg EC tablet TAKE 1 TABLET BY MOUTH TWICE DAILY 180 tablet 1 12/24/19 25 Active escitalopram (LEXAPRO) 10 mg tablet Take 1 tablet (10 mg total) by mouth daily 11/19/19 25 Active vitamin B complex capsule Take 1 capsule by mouth daily Active gabapentin (NEURONTIN) 300 mg capsuleIndicatio ns:Neuropathic Pain Take 1 capsule (300 mg total) by mouth nightly 90 capsule 01/16/20 25 Active omega-3 fatty acids-fish oil 300-1,000 mg capsule Take 1 capsule (1 g total) by mouth daily Active inFLIXimab (REMICADE) 100 mg injectionIndicat ions:Psoriatic arthritis mutilans (HCC) Reconstitute each vial with [...] 1.2um filter every 8 weeks. 300 mL 12/07/19 25 026 Active sodium chloride 0.9% flush syringeIndicatio ns:Psoriatic arthritis mutilans (HCC) Infuse 10 mL IV as needed for line care 1000 mL 12/07/19 25 026 Active acetaminophen (TYLENOL) 325 mg tabletIndication s:Psoriatic arthritis mutilans (HCC) Take 2 tablets (650 mg total) by mouth every 8 (eight) weeks Take 30 minutes prior to infusion 10 tablet 12/07/19 25 026 Active diphenhydrAMINE (BENADRYL) 25 mg capsuleIndicatio ns:Psoriatic arthritis mutilans (HCC) Take 1 tablet/capsule (25 mg total) by mouth every 8 (eight) weeks Take 30 minutes prior to infusion. 5 capsule 12/07/19 25 026 Active 0.9 % sodium chloride (sodium chloride 0.9%) infusionIndicati ons:Psoriatic arthritis mutilans (HCC) Infuse 250 mL IV every 8 (eight) weeks Use as IVPB bag for inFLIXimab infusion 1250 mL 12/07/19 25 026 Active Hospital, Clinic, or Other Facility Administered Medication Ordered Dose Route Frequency Start Date End Date Status methylPREDNISolone acetate (DEPO-medrol) injection 40 mgIndications:Pain of left hip 40 mg intra-artic Once 02/12/2025 02/12/2025 Ended Active Problems Problem Noted Date Diagnosed Date Essential hypertension 04/18/2019 Obesity (BMI 30.0-34.9) 04/18/2019 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 04/23/2017 Spondyloarthropathy 04/21/2017 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 Psoriatic arthritis 03/29/2016 Social History Tobacco Use Types Packs/Day Years Used Date Smoking Tobacco: Never Passive Smoke Exposure: Past Smokeless Tobacco: Never Tobacco Cessation:Counseling Given: Not Answered Alcohol Use Standard Drinks/Week Comments Yes 0 [...] on file 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 Gender Identity Not on file Sexual Orientation Not on file Last Filed Vital Signs Vital Sign Reading Time Taken Comments Blood Pressure 100/71 02/12/2025 2:13 PM CDT Pulse 170 02/12/2025 2:13 PM CDT Temperature 36.8 C (98.2 F) 02/12/2025 2:13 PM CDT Respiratory Rate 16 02/03/2025 9:40 AM CDT Oxygen Saturation 97% 02/12/2025 2:13 PM CDT Inhaled Oxygen Concentration - - Weight 68 kg (149 lb 14.6 oz) 03/04/2025 10:23 P M CDT Height 154.9 cm (5' 0.98) 03/04/2025 10:23 PM C DT Body Mass Index 28.34 03/04/2025 10:23 PM CDT Plan of Treatment Upcoming Encounters Date Type Department Care Team (Late st Contact Info) Description 03/03/2025 Plan of Care Documentation [facility] [address] [address] [address] [place] [address] Procedures Procedure Name Priority Date/Time Associated Diagnosis Comments T-SPOT.TB Routine 12/10/2024 9:30 AM CDT from Last 3 Months Results * T-SPOT.TB Blood (12/10/2024 9:30 AM CDT) [facility] T-SPOT.TB Negative SeeBelow Comment: Normal Value: Negative A negative test result does not exclude the possibility of exposure to or infection with Mycobacterium tuberculosis (M. tuberculosis). Patients with recent exposure to TB infected individuals exhibiting a negative T-SPOT.TB result should be considered for retesting within 6 weeks or if other relevant clinical symptoms indicate. Results from T-SPOT.TB testing must be used in conjunction with each individual's epidemiological history, current medical status, and results of other diagnostic evaluations. The T-SPOT.TB test is qualitative and results are reported as positive, borderline or negative, given that the test controls perform as expected. In line with the Centers for Disease Control and Prevention's 2010 recommendation to report quantitative measurements alongside the qualitative result, the laboratory provides spot counts for informational purposes only. The T-SPOT.TB test should not be interpreted as a quantitative test. T-SPOT.TB Panel A Spot Count 1 [facility] T-SPOT.TB Panel B Spot Count 1 [facility] T-SPOT.TB Negative Control Passed [facility] T-SPOT.TB Positive Control Passed [facility] Comment: Test Performed at: [facility] [address] [place] [id number] FABRICIO APARICIO,PHD Blood 12/10/2024 9:30 AM CDT 12/10/2024 2:31 PM CDT us Derrick Varghese MD LAB MICROBIOLOGY - GENERAL OR DERABLES Final Result [facility] Department [place] [address] from Last 3 [place] [address] [facility] MEDICARE ADVANTAGE [facility] MEDICARE UHC MEDICARE ADVANTAGE [facility] MEDICARE ADVANTAGE Care Teams Organizational Effectiveness Director Relationship Specialty Start Date End Date Shira Alcocer MD [address] [address] PCP - General Family Practice 06/11/21 Derrick Varghese MD [address] [facility], [address] [address] PCP - Home Infusion Attending Internal Medicine 02/24/25 Saorj Cornejo, [facility] Pharmacist Pharmacy 03/04/25
--- OUTSIDE RECORDS SUMMARY | 2025-03-05 14:36 | XMS_ITS | Clinical Summary ---
Author Organization [facility] Address [address] [place] [address] Care Team Providers Care Fusing Line Inspector Name Role Phone Shira Alcocer MD Primary Care Provider [phone] Derrick Varghese MD Unavailable [phone] Saroj Cornejo [facility] Unavailable Unavaila ble Allergies Active Allergy Reactions Criticality Noted Date [...] 10/12/19 22 Active 0.9 % sodium chloride ([facility] sodium chloride 0.9%) injectionIndicat ions:Maintain Patency of [...] 1 tablet (650 mg total) by mouth hr business partner consultant Please provide 650 mg acetaminophen by mouth [...] with 1.2um filter over 1 hour. 12/06/19 026 Active diphenhydrAMINE (BENADRYL) 25 mg capsuleIndicatio ns:infusion pre-medication Take 1 tablet/capsule (25 mg total) by mouth every 8 (eight) weeks Take by mouth 30 minutes prior to infusion. 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 Rheumatology [address] [place] [address] 5th [place] [address] [place] [address] Pain of left hip (Primary Dx) 02/03/2025 9:00 AM CDT Home Care Visit [address] [address] [address] [place] [address] Talia Reynolds RN SN INFUSION TREATMENT ROOM 01/15/2025 1:30 PM CDT Office Visit [facility] Rheumatology [address] [place] [address] 5th [place] [address] [place] [address] Psoriatic arthritis (HCC) (Primary Dx); Anterior uveitis; 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 12/10/2024 9:30 AM CDT - 12/10/2024 11:59 PM CDT Hospital Encounter [facility] [address] [place] [address] Discharge Disposition: Discharge to home or self care 12/10/2024 9:00 AM CDT Home Care Visit [address] [address] [address] [place] [address] Chang Jeffery RN SN INFUSION TREATMENT ROOM 12/05/2024 Orders Only [facility] Home Care Services [address] [facility] [address] [place] [address] Yung Dubose, [facility] 12/04/2024 Orders Only [facility] Rheumatology [address] [place] [address] 5th [place] [address] [place] [address] Aissatou Shi RMA 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 (Primary Dx) from Last 3 Months Surgical History Surgery Date Site/Laterality Comments INSERT / REPLACE / REMOVE PACEMAKER EYE SURGERY 10/02/2020 - 10/01/2021 Right Right Conjunctival lower lid FOOT SURGERY 10/02/2019 - 10/01/2020 Left CARPAL TUNNEL RELEASE 10/02/2004 - 10/01/2005 CATARACT EXTRACTION 10/02/2008 - 10/01/2009 Bilateral HYSTERECTOMY 10/02/1983 - 10/01/1984 N/A Medical History Medical History Date Comments Personal history of other di seases of the circulatory system History of hypertension - (A dded by ANCELMO Conv) Hyperlipidemia Dyslipidemia - ( Added by ANCELMO Conv) Allergic rhinitis Arthritis Rheumatoid arthritis (HCC) Hypertension Osteoporosis Family History Medical History Relation Name Comments Heart disease Brother Family history of cardiac disorder - (Added by ANCELMO Conv) Heart disease Father Heart disease Mother Relation Name Status Comments Brother Father Mother Social History Tobacco Use Types Packs/Day Years [...] on file 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 Gender Identity Not on file Sexual Orientation Not on file Obstetrics History Last Filed Vital Signs Vital Sign Reading [...] Info) Description 03/03/2025 Plan of Care Documentation [facility] Home Health - [address] [place] [address] Health Maintenance Due Date Last Done Comments Colon Cancer Screening-Colonoscopy 1954 Depression Screening 1954 Fall Risk Assessment 1954 Hepatitis C Screening 1954 Osteoporosis Screening-Bone Density Scan 1954 Hepatitis B Screening 02/23/1972 Breast Cancer Screening-Mammogram 09/01/2012 011 Well Visit 65+ 2019 Pneumococcal vaccine 65+ (2 of 2 - PCV) 08/11/2021 08/11/2020 Covid-19 Vaccine (4 - 2023-2 5 season) 2024 05/18/2021, 11/30/2020, 11/09/2020 DTaP/Tdap/Td Vaccine (2 - Td or Tdap) 12/12/2033 12/13/2023 Zoster Vaccine Completed 06/24/2019, 04/25/2019 Influenza Vaccine Completed 07/02/2024, , 07/01/2020, Additional history exists Procedures Procedure Name Priority Date/Time Associated Diagnosis Comments T-SPOT.TB Routine 12/10/2024 9:30 AM CDT from Last 3 Months Results * T-SPOT.TB Blood (12/10/2024 9:30 AM CDT) [facility] Signature T-SPOT.TB Negative SeeBelow Comment: Normal Value: Negative [...] test. T-SPOT.TB Panel A Spot Count [address] [facility] T-SPOT.TB Panel B Spot Count [address] [facility] T-SPOT.TB Negative Control Passed [facility] T-SPOT.TB Positive Control Passed [facility] Comment: Test Performed at: [employer] [facility] [place] [address] FABRICIO APARICIO,PHD Blood 12/10/2024 9:30 AM CDT 12/10/2024 2:31 PM CDT Derrick Varghese MD LAB MICROBIOLOGY - GENERAL OR DERABLES Final Result [facility] Department [place] [address] from Last 3 [place] [address] [facility] MEDICARE ADVANTAGE [facility] MEDIC[facility] Address: [facility] [id number] [place] [address] Care Teams Fusing Line Inspector Relationship Specialty Start Date End Date Shira Alcocer MD [address] [address] PCP - General Family Practice 06/11/21 Derrick Varghese MD [address] [facility] RHEUMATOLOGY, [address] [address] PCP - Home Infusion Attending Internal Medicine 02/24/25 Saroj Cornejo, [facility] Pharmacist Pharmacy 03/04/25
--- OUTSIDE RECORDS SUMMARY | 2025-03-05 14:36 | XMS_ITS | Encounter Summary ---
Author Organization [facility] Address [address] [place] [address] Phone Care Team Providers Care Stationary Engineer Refrigeration Name Role Phone Moris Duncan MD Primary Care Provider Shira Alcocer MD Primary Care Provider [phone] Derrick Varghese MD Unavailable Saroj Cornejo [facility] Unavailable Unavaila ble Encounter Details Date Type Department Care Team (Late Contact Info) Description 04/09/2019 Orders Only [facility] Scanning, Provider Social History Tobacco Use Types Packs/Day Years Used Date Smoking Tobacco: Never Smokeless Tobacco: Never Comments Unknown Sex and Gender Information Value Date Recorded Sex Assigned at Not on file 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 Gender Identity Not on file Sexual Orientation Not on file documented as of this encounter Plan of Treatment Upcoming Encounters Date Type Department Care Team (Late st Contact Info) Description 03/03/2025 Plan of Care Documentation [address] [address] [address] [place] [address] documented as of this encounter Procedures Procedure Name Priority Date/Time Associated Diagnosis Comments SCAN - LABS 04/09/2019 documented in this encounter Results * SCAN - LABS (04/09/2019) us Provider Scanning Final Result documented in this encounter Visit Diagnoses Not on filedocumented in this encounter Care Teams Stationary Engineer Refrigeration Relationship Specialty Start Date End Date Moris Duncan MD [address] [place] [address] PCP - General 04/21/17 06/10/21 Shira Alcocer MD [address] [address] PCP - General Family Practice 06/11/21 Derrick Varghese MD [address] [facility] DIV RHEUMATOLOGY, [address] [address] PCP - Home Infusion Attending Internal Medicine 02/24/25 Saroj Cornejo, [facility] Pharmacist Pharmacy 03/04/25 documented as of this encounter
--- OUTSIDE RECORDS SUMMARY | 2025-03-05 14:36 | XMS_ITS | Patient Health Record ---
Author Organization [facility] Address [address] [place], [place] [address] Care Team Providers Care Cooker Process Cheese Name Role Phone MARYHARPREET DONALD Unavailable [phone] Shira Alcocer Unavailable Unavailable Allergies Allergen (clinical drug ingredient) Drug/Non Drug Allergy documented on EMR Reaction Allergy Type Onset Date Status cefaclor Ceclor (uncoded) Unknown Allergy 10/23/2019 ac tive Reason For Referral No Information Vital Signs Height-cm 154.94 cm 11/28/2024 Weight-kg 76.66 kg 11/28/2024 Height 61.00 in 11/28/2024 Weight 169 lbs 11/28/2024 BMI 31.93 kg/m2 11/28/2024 Encounters Encounter Location Date Provider Diagnosis [facility] [address] [place] [id number] 11/28/2024 HARPREET TARIQ Metatarsalgia of right foot M77.41 ; 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 ; Other specified rheumatoid arthritis, right ankle and foot M06.871 ; Other specified rheumatoid arthritis, left ankle and foot M06.872 ; Hammer toe of right foot M20.41 ; Pain in right foot M79.671 and Left foot pain M79.672 [facility] [address] [place], [place] [id number] 12/12/2024 HARPREET TARIQ Lesion of plantar nerve, 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 ; Metatarsalgia of right foot M77.41 ; Barrientos's [...] neuroma of right foot (ICD-10 - G57.61) 12/12/2024 Lesion of plantar nerve, 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) 11/28/2024 Other specified rheumatoid arthritis, right ankle and foot (ICD-10 - M06.871) 12/12/2024 Metatarsalgia of right foot (ICD-10 - M77.41) 12/12/2024 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) 11/28/2024 Other specified rheumatoid arthritis, left ankle and foot (ICD-10 - M06.872) 12/12/2024 Other specified rheumatoid arthritis, right ankle and foot (ICD-10 - M06.871) 12/12/2024 Other specified rheumatoid arthritis, left ankle and foot (ICD-10 - M06.872) 11/28/2024 Hammer toe of right foot (ICD-10 - M20.41) 12/12/2024 Hammer toe of right foot (ICD-10 - M20.41) 11/28/2024 Pain in right foot (ICD-10 - M79.671) 11/28/2024 Left foot pain (ICD-10 - M79.672) 12/12/2024 Pain in right foot (ICD-10 - M79.671) 12/12/2024 Left foot pain (ICD-10 - M79.672) 11/28/2024 [...] foot in the subtalar joint neutral position. 12/12/2024 Other Following skin prep, a total of 3 ccs of a 1-1-1 mix of 0.5% marcaine plain, Kenalog, and dexamethasone sodium phosphate was injected into the patients right second interspace Orthotic dispense: The orthotic devices were dispensed and fitted. It was noted that the orthotic conformed well to the patients foot in the subtalar joint neutral position. Plan Of Treatment No Information Insurance Providers Payer Name Payer Address Payer Phone Subscriber Number Group Number Insured Name Patient Relationship to Insured Coverage Start Date Coverage End Date [facility] [address] [address] [place] [id number] ALFREDITO CAMARGO Self - patient is the insured
--- OUTSIDE RECORDS SUMMARY | 2025-03-05 14:36 | XMS_ITS ---
Author Organization [facility] Address [address] [place] [address] Care Team Providers Care Transportation Director Name Role Phone Shira Alcocer MD Primary Care Provider [phone] Derrick Varghese MD Unavailable Saroj Cornejo formerly [facility] Unavailable Unavaila ble Home Infusion Status:Enrolled (Active) Start date:02/07/2025 Enrollment date:02/07/2025 Related service episodes:[facility] Special[facility] Therapies - REMICADE 600 mg IV EVERY 8 WEEKS (Active) Overview Cutover complete Chelo Lerma, NIURKA 02/24/2025 7:45 AM Continued Care and Services Coordination
[2025-03-05 14:49] LABS: Hematocrit 39.9 % (37.0-47.0); Hemoglobin 13.5 g/dL (12.0-15.0); Mean Corpuscular HGB Conc 33.8 g/dl (32-36); Mean Corpuscular Hemoglobin 33.6 pg (26-34); Mean Corpuscular Volume 99.3 fl (80-100); Mean Platelet Volume 8.5 fl (7.4-10.4); Platelet Count Result 360 k/mm3 (150-375); Red Blood Count 4.02 M/mm3 (4.2-5.4); Red Cell Distribution Width 12.9 % (11.5-14.5); White Blood Count 4.6 K/mm3 (4.5-10.0)
[2025-03-05 15:04] LABS: Alanine Aminotransferase 32 U/L (6-35); Albumin Level 4.3 g/dL (3.5-5.1); Alkaline Phosphatase 49 U/L (38-126); Anion Gap 7 mmol/L (4-12); Aspartate Amino Transferase 44 U/L (14-36); Bilirubin,Total 0.8 mg/dL (0.2-1.3); Blood Urea Nitrogen 11 mg/dL (7-17); Calcium 9.6 mg/dL (8.4-10.2); Carbon Dioxide 25 mmol/L (22-30); Chloride 100 mmol/L (98-107); Estimated CRCL calculation 73 ml/min; Estimated Glomerular Filt Rate > 60; Glucose 98 mg/dL (65-110); Lipase 94 U/L (23-300); Potassium 4.4 mmol/L (3.4-5.0); Sodium 132 mmol/L (137-145); Total Protein 7.9 g/dL (6.3-8.2)
[2025-03-05 15:06] LABS: INR 1.1; Prothrombin Time 13.9 Seconds (11.1-14.7)
[2025-03-05 15:07] LABS: Partial Thromboplastin Time 33.7 Seconds (22.3-36.8)
[2025-03-05 15:09] VITALS: O2SAT 98
[2025-03-05 15:12] VITALS: BP 109/86; PULSE 64; RESP 13; O2SAT 98
[2025-03-05 15:15] LABS: Troponin I < 0.012 ng/mL (0.000-0.034)
[2025-03-05 15:17] LABS: Basophils Absolute Manual 0.04 K/mm3 (0.0-0.1); Basophils Percent Manual 1 % (0-1); Eosinophils Absolute Manual 0.04 K/mm3 (0.02-0.50); Eosinophils Percent Manual 1 % (0-4); Lymphocytes Absolute Manual 1.65 K/mm3 (1.1-4.5); Monocytes Absolute Manual 0.23 K/mm3 (0.1-0.90); Monocytes Percent Manual 5 % (3-9); Neutrophils Percent Manual 57 % (46-73); Platelet Estimate Adequate (Adequate); Total Cells Counted 100
[2025-03-05 15:18] LABS: Schistocytes None Seen
[2025-03-05] MEDS: ASPIRIN 81 MG CHEWABLE TABLET 324 MG PO (15:25)
[2025-03-05 15:29] LABS: Band Neutrophils Percent 0 % (0-6); Neutrophils Absolute Manual 2.62 K/mm3 (1.3-6.7)
--- OUTSIDE RECORDS SUMMARY | 2025-03-05 15:45 | XMS_ITS | Clinical Summary ---
Author Organization [facility] Address [address] [place] [address] Care Team Providers Care Ostrich Farmer Name Role Phone Shira Alcocer MD Primary Care Provider [phone]- [phone] Derrick Varghese MD Unavailable [phone] [facility] Unavailable Unavaila ble Allergies Active Allergy [...] 10/12/19 22 Active 0.9 % sodium chloride ([facility] sodium chloride 0.9%) injectionIndicat ions:Maintain Patency [...] 1 tablet (650 mg total) by mouth personal lines account manager Please provide 650 mg acetaminophen by mouth [...] 03/03/2025 7:30 AM CDT Home Care Visit [address] [place] [address] Hank Conteh, NIURKA SN NON OASIS RECERTIFICATION 03/03/2025 Home Infusion [facility] Home Infusion Therapy [address] [place] [address] Selam Brown RN Psoriatic arthritis mutilans (HCC) (Primary Dx) 02/12/2025 2:30 PM CDT Office Visit [facility] Rheumatology [address] [place] [address] 5th [place] [address] [place] [address] Pain of left hip (Primary Dx) 02/03/2025 9:00 AM CDT Home Care Visit [address] [address] [address] [place] [address] Talia Reynolds RN SN INFUSION TREATMENT ROOM 01/15/2025 1:30 PM CDT Office Visit [facility] Rheumatology [address] [place] [address] 5th [place] [address] [place] [address] Psoriatic arthritis (HCC) (Primary Dx); Anterior uveitis; 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 Gender Identity Not on file Sexual Orientation [...] Info) Description 03/03/2025 Plan of Care Documentation [facility] Home Health - [address] [place] [address] Health Maintenance Due Date Last Done Comments [...] * T-SPOT.TB Blood (12/10/2024 9:30 AM CDT) [facility] Signature T-SPOT.TB Negative SeeBelow Comment: Normal [...] T-SPOT.TB Panel A Spot Count 1 [facility] T-SPOT.TB Panel B Spot Count 1 [facility] T-SPOT.TB Negative Control Passed [facility] T-SPOT.TB Positive Control Passed [facility] Comment: Test Performed at: [employer] [place] [address] FABIRCIO APARICIO,PHD Blood 12/10/2024 9:30 AM CDT 12/10/2024 2:31 PM CDT Derrick Varghese MD LAB MICROBIOLOGY - GENERAL OR DERABLES Final Result [facility] [place] [address] from Last 3 [place] [address] [facility] MEDICARE ADVANTAGE [facility] Address: [facility] [address] [place] [address] [facility] Address: [facility] [address] [place] [address] Care Teams Ostrich Farmer Relationship Specialty Start Date End Date Shira Alcocer MD [address] [address] PCP - General Family Practice 06/11/21 Derrick Varghese MD [address] [facility] RHEUMATOLOGY, [address] [address] PCP - Home Infusion Attending Internal Medicine 02/24/25 Saroj Cornejo, [facility] Pharmacist Pharmacy 03/04/25
--- OUTSIDE RECORDS SUMMARY | 2025-03-05 15:45 | XMS_ITS | Encounter Summary ---
Author Organization [facility] Address [address] [place] [address] Phone Care Team Providers Care Motor And Generator Assembler Name Role Phone Moris Duncan MD Primary Care Provider Shira Alcocer MD Primary Care Provider [phone] Derrick Varghese MD Unavailable [phone] Saroj Cornejo [facility] Unavailable Unavaila ble Encounter Details Date Type Department Care Team (Late Contact Info) Description 04/09/2019 Orders Only [facility] Scanning, Provider Social History Tobacco Use Types Packs/Day Years Used Date Smoking Tobacco: Never Smokeless Tobacco: Never Comments Unknown Sex and Gender Information Value Date Recorded Sex Assigned at Not on file Legal Sex Female 3:12 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 RELATIONS COORDINATOR Gender Identity Not on file Sexual Orientation Not on file documented as of this encounter Plan of Treatment Upcoming Encounters Date Type Department Care Team (Late st Contact Info) Description 03/03/2025 Plan of Care Documentation [address] [address] [address] [place] [address] documented as of this encounter Procedures Procedure Name Priority Date/Time Associated Diagnosis Comments SCAN - LABS 04/09/2019 documented in this encounter Results * SCAN - LABS (04/09/2019) us Provider Scanning Final Result documented in this encounter Visit Diagnoses Not on filedocumented in this encounter Care Teams Motor And Generator Assembler Relationship Specialty Start Date End Date Moris Duncan MD [address] [place] [address] PCP - General 04/21/17 06/10/21 Shira Alcocer MD [address] [address] PCP - General Family Practice 06/11/21 Derrick Varghese MD 4921 [facility] DIV RHEUMATOLOGY, [address] [address] PCP - Home Infusion Attending Internal Medicine 02/24/25 Saroj Cornejo, [facility] Pharmacist Pharmacy 03/04/25 documented as of this encounter
--- OUTSIDE RECORDS SUMMARY | 2025-03-05 15:45 | XMS_ITS | Encounter Summary ---
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 Gender Identity Not on file Sexual Orientation [...] Info) Description 03/03/2025 Plan of Care Documentation [address] [address] [address] [place] [address] documented as of this encounter Visit Diagnoses Diagnosis Psoriatic arthritis mutilans (HCC)- Primary documented in this encounter Care Teams Home Insurance Agent Relationship Specialty Start Date End Date Shira Alcocer MD [address] [address] PCP - General Family Practice 06/11/21 Derrick Varghese MD [address] [facility] RHEUMATOLOGY, [address] [address] PCP - Home Infusion Attending Internal Medicine 02/24/25 Saroj Cornejo, [facility] Pharmacist Pharmacy 03/04/25 documented as of this encounter
--- OUTSIDE RECORDS SUMMARY | 2025-03-05 15:45 | XMS_ITS | Clinical Summary ---
Author Organization [facility] Address [address] [place] [address] Phone Care Team Providers Care Optical Designer Name Role Phone Moris Duncan MD Primary Care Provider [phone] Allergies Active Allergy Reactions Criticality Noted Date [...] MD Referring Provider: Deborah Quiroz MD [address] [facility] [address] [place] [address] Other: Problem Noted Date Diagnosed Date Diffuse [...] Recently Relevant to Health Maintenance Care Teams Optical Designer Relationship Specialty Start Date End Date Moris Duncan MD [address] [place] [address] PCP - General Family Practice 01/06/14
--- OUTSIDE RECORDS SUMMARY | 2025-03-05 15:45 | XMS_ITS | Referral Summary ---
Author Organization [facility] al Address [address] [place] [address] Care Team Providers Care Fire Coordinator Name Role Phone Shira Alcocer MD Primary Care Provider [phone] Derrick Varghese MD Unavailable [phone] Saroj Cornejo [facility] Unavailable Unavaila ble Encounters Date Type Department Care Team Description 03/03/2025 Home Infusion [facility] Home Infusion Therapy [address] [place] [address] Selam Brown RN Psoriatic arthritis mutilans (HCC) (Primary Dx) 03/03/2025 7:30 AM CDT Home Care Visit [address] [place] [address] Hank Conteh RN SN NON OASIS RECERTIFICATION 02/12/2025 2:30 PM CDT Office Visit [facility] Rheumatology [address] 5th [place] [address] [place] [id number] Pain of left hip (Primary Dx) 02/03/2025 9:00 AM CDT Home Care Visit [address] [place] [address] Talia Reynolds RN SN INFUSION TREATMENT ROOM 01/15/2025 1:30 PM CDT Office Visit [facility] Rheumatology [address] 5th [place] [address] [place] [address] Psoriatic arthritis (HCC) (Primary Dx); Anterior uveitis; 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 12/10/2024 9:30 AM CDT - 12/10/2024 11:59 PM CDT Hospital Encounter [address] [address] Discharge Disposition: Discharge to home or self care 12/10/2024 9:00 AM CDT Home Care Visit [address] [place] [address] Chang Jeffery RN SN INFUSION TREATMENT ROOM 12/05/2024 Orders Only [facility] Home Care Services [address] [place] [address] Yung Dubose, [facility] 12/04/2024 Orders Only [facility] Rheumatology [address] 5th [place] [address] [place] [phone] Aissatou Shi RMA 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 [...] 22 Active 0.9 % sodium chloride ([facility] sodium chloride 0.9%) injectionIndicat ions:Maintain Patency of [...] 1 tablet (650 mg total) by mouth organizational development specialist Please provide 650 mg acetaminophen by mouth [...] on file Legal Sex Female 3:12 AM SEMICONDUCTOR BONDER Gender Identity Not on file Sexual Orientation [...] Info) Description 03/03/2025 Plan of Care Documentation [facility] [address] [address] [address] [place] [address] Procedures Procedure Name Priority Date/Time Associated Diagnosis Comments T-SPOT.TB Routine 12/10/2024 9:30 AM CDT from Last 3 Months Results * T-SPOT.TB Blood (12/10/2024 9:30 AM CDT) [facility] T-SPOT.TB Negative SeeBelow Comment: Normal Value: Negative [...] test. T-SPOT.TB Panel A Spot Count 1 [facility] T-SPOT.TB Panel B Spot Count 1 [facility] T-SPOT.TB Negative Control Passed [facility] T-SPOT.TB Positive Control Passed [facility] Comment: Test Performed at: [employer] [facility], [facility] [employer] [address] [place] [id number] FABRICIO APARICIO,PHD Blood 12/10/2024 9:30 AM CDT 12/10/2024 2:31 PM CDT us Derrick Varghese MD LAB MICROBIOLOGY - GENERAL OR DERABLES Final Result [facility] Department [place] [address] from Last 3 [place] [address] [facility] MEDICARE ADVANTAGE [facility] MEDICARE UHC MEDICARE ADVANTAGE [facility] MEDICARE ADVANTAGE Care Teams Fire Coordinator Relationship Specialty Start Date End Date Shira Alcocer MD [address] [address] PCP - General Family Practice 06/11/21 Derrick Varghese MD [address] [facility] RHEUMATOLOGY, [address] [address] PCP - Home Infusion Attending Internal Medicine 02/24/25 Saroj Cornejo, [facility] Pharmacist Pharmacy 03/04/25
--- OUTSIDE RECORDS SUMMARY | 2025-03-05 15:45 | XMS_ITS | Encounter Summary ---
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 Gender Identity Not on file Sexual Orientation Not on file documented as of this encounter Plan of Treatment Upcoming Encounters Date Type Department Care Team (Late st Contact Info) Description 03/03/2025 Plan of Care Documentation [address] [address] [address] [place] [address] documented as of this encounter Procedures Procedure Name Priority Date/Time Associated Diagnosis Comments SCAN - RADIOLOGY/IMAGING 07/17/2024 documented in this encounter Results * SCAN - RADIOLOGY/IMAGING (07/17/2024) Anatomical Region Laterality Modality Other us Provider Scanning Final Result documented in this encounter Visit Diagnoses Not on filedocumented in this encounter Care Teams Waste Water Worker Relationship Specialty Start Date End Date Shira Alcocer MD [address] [address] PCP - General Family Practice 06/11/21 Derrick Varghese MD 4921 [facility] RHEUMATOLOGY, [address] [address] PCP - Home Infusion Attending Internal Medicine 02/24/25 Saroj Cornejo, [facility] Pharmacist Pharmacy 03/04/25 documented as of this encounter
--- OUTSIDE RECORDS SUMMARY | 2025-03-05 15:45 | XMS_ITS | Clinical Summary ---
Author Organization [facility] [employer] Address [address] [facility] [place] [address] Care Team Providers Care Pastoral Ministries Professor Name Role Phone Moris Duncan MD Primary Care Provider [phone] Source Comments [facility] [employer],non-owned Affiliates and Associated Physician Practices is amultiple site organization consisting of ambulatory clinics and hospital sitesin [place], [place], [place] and [place]. This disclosure is being madepursuant to the Care Everywhere program and may not contain all information available regarding this patient. Last updated 18.[facility] [employer] Allergies No known active allergies Medications * [...] Vitamin (MULTI-VITAMINS ) TABS once daily Active [place]-3 Fatty Acids (KP FISH OIL) 1200 MG [...] kPa Immunizations Immunization Administration Dates Next Due PrePlay primary monoval ent 12+ yr 0.3mL Purple [...] on file Legal Sex Female 5:58 PM TOOLSMITH Gender Identity Not on file Sexual Orientation Not on file Last Filed Vital Signs Vital Sign Reading Time Taken Comments Blood Pressure 130/88 08/18/2022 10:45 AM TOOLSMITH Pulse 85 08/18/2022 10:45 AM TOOLSMITH Temperature 36.6 C (97.8 F) 08/18/2022 10:45 AM TOOLSMITH Respiratory Rate 14 08/18/2022 10:45 AM TOOLSMITH Oxygen Saturation 100% 08/18/2022 10:45 AM TOOLSMITH Inhaled Oxygen Concentration - - Weight 77.1 kg (170 lb) 08/18/2022 10:45 AM TOOLSMITH Height 157.5 cm (5' 2.01) 08/18/2022 10:45 AM C Body Mass Index 31.09 08/18/2022 10:45 AM TOOLSMITH Plan of Treatment Health Maintenance Due Date [...] Management General On track( 022 10:52 AM TOOLSMITH) Donte Reveles, RN Note: Expected end date: Interventions: Take all medications as prescribed Let your doctor know right away about any changes in your medications Make sure to request a refill of your medication at least one week prior to your last dose Procedures Procedure Name Priority Date/Time Associated Diagnosis Comments COMPREHENSIVE METABOLIC PANEL Routine 09/22/2021 12:40 PM TOOLSMITH Elevated liver enzymes Liver cyst HEPATITIS C ANTIBODY Routine 09/22/2021 12:40 PM TOOLSMITH Elevated liver enzymes Liver cyst from Last 3 Months or Most Recently Relevant to Health Maintenance Results * (ABNORMAL) COMPREHENSIVE METABOLIC PANEL (09/22/2021 12:40 PM TOOLSMITH) BUN 13 7 - 26 mg/dL 09/22/2021 2:10 PM [facility] Creatinine 0.58 0.56 - 0.96 mg/dL 09/22/2021 2:10 PM [facility] Sodium 137 136 - 145 mmol/L 09/22/2021 2:10 PM [facility] Potassium 3.7 3.5 - 4.5 mmol/L 09/22/2021 2:10 PM [facility] Chloride 104 98 - 107 mmol/L 09/22/2021 2:10 PM [facility] CO2 27 22 - 29 mmol/L 09/22/2021 2:10 PM [facility] Glucose 141(H) 70 - 115 mg/dL 09/22/2021 2:10 PM [facility] Calcium 9.6 8.4 - 10.2 mg/dL 09/22/2021 2:10 PM [facility] Protein Total 7.5 6.0 - 8.3 g/dL 09/22/2021 2:10 PM [facility] Albumin 3.7 3.4 - 5.0 g/dL 09/22/2021 2:10 PM [facility] Bilirubin Total 0.4 0.2 - 1.2 mg/dL 09/22/2021 2:10 PM [facility] Alkaline Phosphatase 56 40 - 150 U/L 09/22/2021 2:10 PM [facility] ALT 41 5 - 55 U/L 09/22/2021 2:10 PM [facility] AST 33 5 - 34 U/L 09/22/2021 2:10 PM [facility] Anion Gap 10 8 - 18 09/22/2021 2:10 PM [facility] BUN/Creatinine Ratio 22 7 - 23 09/22/2021 2:10 PM [facility] Osmolality Calculated 286 270 - 300 mOsm/kg 09/22/2021 2:10 PM [facility] Albumin/Globulin Ratio 1.0(L) 1.1 - 2.3 09/22/2021 2:10 PM [facility] eGFR by CKD-EPI >90 >=90 mL/min/1.7 3 m2 09/22/2021 2:10 PM [facility] Blood BLOOD SPECIMEN / Unknown Lab Venipuncture / Unknown 09/22/2021 12:40 PM TOOLSMITH 09/22/2021 1:42 PM [facility] Tez Cárdenas MD LAB - CHEMISTRY ORDERA BLES Final Result [facility] [address] [place] [address], [facility] [phone] * HEPATITIS C ANTIBODY (09/22/2021 12:40 PM TOOLSMITH) Hepatitis C Antibody Non-react estrada Non-reac tive 09/22/2021 2:36 PM [facility] Comment:Hepatitis C Antibody screen indicates no serologic evidence of past or current infection with Hepatitis C Virus. Patients with unexplained liver disease who are immunocompromised or suspected of having acute Hepatitis C infection may benefit from Nucleic Acid Test (MEME) for Hepatitis C Viral RNA to confirm Hepatitis C status. Blood BLOOD SPECIMEN / Unknown Lab Venipuncture / Unknown 09/22/2021 12:40 PM TOOLSMITH 09/22/2021 1:30 PM [facility] Tez Cárdenas MD LAB - CHEMISTRY ORDERA BLES Final Result [facility] [address] [place] [address], [place] [phone] from Last 3 Months or Most Recently Relevant to Health Maintenance Insurance [employer] MEDICARE AETNA MEDICARE ADV AETNA Care Teams Pastoral Ministries Professor Relationship Specialty Start Date End Date Moris Duncan MD [address] [place] [address] PCP - General 09/08/22
--- OUTSIDE RECORDS SUMMARY | 2025-03-05 15:45 | XMS_ITS ---
Author Organization [facility] al Address [address] [place] [address] Care Team Providers Care Manager Of Application Development Name Role Phone Shira Alcocer MD Primary Care Provider [phone] Derrick Varghese MD Unavailable [phone] Saroj Cornejo [facility] Unavailable Unavaila ble RxHI Specialty Therapies - REMICADE 600 mg IV EVERY 8 WEEKS Status:Enrolled (Active) Start date:02/07/2025 Enrollment date:02/07/2025 Linked medications:infliximab (Active) Related program episode:Home Infusion (Active) Overview Cutover complete Case Team Name Relationship Phone Saroj Cornejo [facility](Responsible Staff) Pharma cist Continued Care and Services Coordination
--- OUTSIDE RECORDS SUMMARY | 2025-03-05 15:45 | XMS_ITS ---
Author Organization [facility] Address [address] [place] [address] Care Team Providers Care Superintendent Terminal Name Role Phone Shira Alcocer MD Primary Care Provider [phone] Derrick Varghese MD Unavailable Saroj Cornejo [facility] Unavailable Unavaila ble Home Infusion Status:Enrolled (Active) Start date:02/07/2025 Enrollment date:02/07/2025 Related service episodes:RxHI Specialty Therapies - REMICADE 600 mg IV EVERY 8 WEEKS (Active) Overview Cutover complete Chelo Lerma, NIURKA 02/24/2025 7:45 AM Continued Care and Services Coordination
[2025-03-05 16:02] VITALS: BP 112/96; PULSE 64; RESP 18; O2SAT 96
--- NOTE | 2025-03-05 16:45 | ED.CHESTPAIN ---
HPI - Chest Pain General Chief Complaint: Chest Pain Stated Complaint: back and chest pain Time Seen by Provider: 03/05/25 15:10 History of Present Illness HPI narrative: Patient presents with pain that started while she was taking a walk, started earlier today, feels like it is going up to her jaw and to her back, she does have a history of aortic aneurysm and leaky valves. No shortness of breath, nausea vomiting, reports 6/10 pain Related Data Home Medications ?Medication ?Instructions ?Recorded ?Confirmed ?Last Taken ?Type adalimumab 40 mg/0.8 mL 40 mg subcut Q14D 02/06/20 11/30/20 Unknown History subcutaneous syringe kit (Humira) cholecalciferol (vitamin D3) 25 25 mcg PO DAILY 02/06/20 11/30/20 Unknown History mcg (1,000 unit) capsule folic acid 400 mcg tablet 0.4 mg PO DAILY 02/06/20 11/30/20 Unknown History meloxicam 15 mg tablet 15 mg PO DAILY 02/06/20 11/30/20 Unknown History multivitamin 1 cap PO DAILY 02/06/20 11/30/20 Unknown History omega-3 fatty acids-fish oil 360 1 cap PO DAILY 02/06/20 11/30/20 Unknown History mg-1,200 mg capsule (Fish Oil) aspirin 81 mg tablet,delayed 81 mg PO DAILY 02/14/20 11/30/20 Unknown History release methotrexate (PF) 25 mg/0.4 mL 10 mg subcut WEEKLY 11/30/20 11/30/20 Unknown History subcutaneous auto-injector Allergies Allergy/AdvReac Type Severity Reaction Status Date / Time cefaclor Allergy Unknown Skin Verified 03/05/25 14:25 Reaction CECLOR Allergy Unknown ITCHY MOUTH Uncoded 03/05/25 14:25 Review of Systems Review of Systems: All systems reviewed & are unremarkable except as noted in HPI and below PMFSH Surgical History Surgical History (Updated 11/30/20 @ 12:18 by Jenna Novak [facility]) H/O blepharoplasty (~2009) History of lumpectomy of right breast (~2005) H/O eye surgery (~2008) History of carpal tunnel surgery (~2004) History of cataract surgery (~2008) H/O: hysterectomy (~1983) H/O umbilical hernia repair (~2017) Hx of tonsillectomy Family History Family History Sibling Family history of bipolar disorder Family history of elevated blood lipids Acute myocardial infarction Family history of coronary artery disease Father Hypertension Family history of elevated blood lipids Family history of Alzheimer's disease Family history of coronary artery disease Grandparent Family history of elevated blood lipids, Onset Age: 42 Acute myocardial infarction, Onset Age: 42 Cerebrovascular accident, Onset Age: 42 Family history of malignant neoplasm of breast Family history of coronary artery disease, Onset Age: 42 Social History Social History (Updated 11/30/20 @ 12:19 by Jenna Novak [facility]) Smoking status: Never smoker Alcohol intake: current Exam Narrative: EXAMINATION OF ORGAN SYSTEMS/BODY AREAS: Constitutional: Vital signs per nursing GENERAL:[No acute distress, non-toxic appearing.] HEAD: Normal with no signs of head trauma. EYES: EOMI, conjunctiva normal ENT: Hearing grossly intact LUNGS: Nonlabored breathing. HEART: [Regular rate and rhythm] ABD: [Soft], [nontender to palpation] EXT: Normal range of motion SKIN: [No rashes or lesions.] NEURO: [Alert and oriented x 3. No gross focal sensory or strength deficits.] PSYCH: Normal affect Course Vital Signs Vital signs: Vital Signs Temperature 98.2 F 03/05/25 14:28 Pulse Rate 76 03/05/25 14:28 Respiratory Rate 16 03/05/25 14:28 Blood Pressure 136/90 03/05/25 14:28 Pulse Oximetry 97 03/05/25 14:28 Temperature 98.2 F 03/05/25 14:28 Pulse Rate 64 03/05/25 16:02 Respiratory Rate 18 03/05/25 16:02 Blood Pressure 112/96 H 03/05/25 16:02 Pulse Oximetry 96 03/05/25 16:02 Oxygen Delivery Room Air 03/05/25 15:09 MDM - Chest Pain MDM Narrative Medical decision making narrative: Patient with history of aortic ?aneurysm? and ? Valve regurgitation? presents here with chest pain that started on exertion today, she has had this in the past but was worried today because it never went away. She is very well-appearing in no distress however she reports significant chest pain, given this I will obtain CTA to rule out aortic catastrophe. EKG on my independent interpretation shows normal sinus rhythm rate 67, OH 186, QRS 89, QTC 425, left axis, no significant ST elevations depressions or signs of acute ischemia or arrhythmia HEART score is 3 with no acute ischemic changes on EKG and two negative troponins making ACS unlikely. CTA thankfully negative for dissection, it does show possible liver cysts which I discussed with the patient and she is already aware of, and possible gallstones. On repeat evaluation just prior to discharge, the patient is no acute distress. I had a long discussion with the patient and with shared decision making, she is comfortable with outpatient management. She was given clear return instructions by myself in person as well as on discharge paperwork. Procedures: Pulse oximetry interpretation - not hypoxic. EKG interpretation. Review of medical records. Lab Data 03/05/25 14:41 03/05/25 14:41 Labs: Lab Results 03/05/25 03/05/25 Range/Units 14:41 17:28 WBC 4.6 (4.5-10.0) K/mm3 RBC 4.02 L (4.2-5.4) M/mm3 Hgb 13.5 (12.0-15.0) g/dL Hct 39.9 (37.0-47.0) % MCV 99.3 (80-100) fl MCH 33.6 (26-34) pg MCHC 33.8 (32-36) g/dl RDW 12.9 (11.5-14.5) % Plt Count 360 (150-375) k/mm3 MPV 8.5 (7.4-10.4) fl Immature Gran % (Auto) Not Reportable Neut % (Auto) Not Reportable Lymph % (Auto) Not Reportable [place] % (Auto) Not Reportable Eos % (Auto) Not Reportable Baso % (Auto) Not Reportable Lymph # (Auto) Not Reportable [place] # (Auto) Not Reportable Eos # (Auto) Not Reportable Baso # (Auto) Not Reportable Abs Immat Gran (auto) Not Reportable Absolute Neuts (auto) Not Reportable Absolute Nucleated RBC Not Reportable Total Counted 100 Neutrophils % (Manual) 57 (46-73) % Band Neutrophils % 0 (0-6) % Lymphocytes % (Manual) 36.0 (18-44) % Monocytes % (Manual) 5 (3-9) % Eosinophils % (Manual) 1 (0-4) % Basophils % (Manual) 1 (0-1) % Nucleated RBC % Not Reportable Abs Neuts (Manual) 2.62 (1.3-6.7) K/mm3 Abs Lymphs (Manual) 1.65 (1.1-4.5) K/mm3 Abs Monocytes (Manual) 0.23 (0.1-0.90) K/mm3 Absolute Eos (Manual) 0.04 (0.02-0.50) K/mm3 Abs Basophils (Manual) 0.04 (0.0-0.1) K/mm3 Platelet Estimate Adequate (Adequate) Schistocytes None seen PT 13.9 (11.1-14.7) Seconds INR 1.1 APTT 33.7 (22.3-36.8) Seconds Sodium 132 L (137-145) mmol/L Potassium 4.4 (3.4-5.0) mmol/L Chloride 100 (98-107) mmol/L Carbon Dioxide 25 (22-30) mmol/L Anion Gap 7 (4-12) mmol/L BUN 11 (7-17) mg/dL Creatinine 0.52 L (0.7-1.0) mg/dL Estim Creat Clear Calc 73 ml/min Estimated GFR > 60 (59 - ) Glucose 98 (65-110) mg/dL Calcium 9.6 (8.4-10.2) mg/dL Total Bilirubin 0.8 (0.2-1.3) mg/dL AST 44 H (14-36) U/L ALT 32 (6-35) U/L Alkaline Phosphatase 49 (38-126) U/L Troponin I < 0.012 < 0.012 (0.000-0.034) ng/mL Total Protein 7.9 (6.3-8.2) g/dL Albumin 4.3 (3.5-5.1) g/dL Lipase 94 (23-300) U/L Discharge Plan Discharge Clinical Impression: Chest pain Patient Disposition: Home Condition: Stable Instructions: Chest Pain (ED) Additional Instructions: Your CT today did show some likely liver cysts, please follow-up with your doctor for this. You can always return to the emergency room for any further issues especially if the pain returns or worsens. Patient Language: Upper Sorbian Prescriptions: No Action aspirin 81 mg tablet,delayed release (DR/EC) 81 mg PO DAILY fluticasone propionate 50 mcg/actuation spray,suspension 1 spray NASAL BID Qty: 15.8 5RF Rx Instructions: administer into each nostril meloxicam 15 mg tablet 15 mg PO DAILY Humira 40 mg/0.8 mL syringe kit 40 mg SUB-Q Q14D cholecalciferol (vitamin D3) 25 mcg (1,000 unit) capsule 25 mcg PO DAILY folic acid 400 mcg tablet 0.4 mg PO DAILY omega-3 fatty acids-fish oil [Fish Oil] 360-1,200 mg capsule 1 cap PO DAILY multivitamin Capsule 1 cap PO DAILY acyclovir 5 % ointment 1 applic TOPICAL TID Qty: 30 5RF potassium chloride [Klor-Con M20] 20 mEq tablet,ER particles/crystals See Rx Instructions .ROUTE .COMPLEX Qty: 90 3RF Dose Instruction: TAKE 1 TABLET DAILY Rx Instructions: TAKE 1 TABLET DAILY methotrexate (PF) 25 mg/0.4 mL auto-injector 10 mg SUB-Q WEEKLY simvastatin 20 mg tablet See Rx Instructions .ROUTE .COMPLEX Qty: 90 1RF Dose Instruction: TAKE 1 TABLET DAILY Rx Instructions: TAKE 1 TABLET DAILY telmisartan 80 mg tablet See Rx Instructions .ROUTE .COMPLEX Qty: 90 1RF Dose Instruction: TAKE 1 TABLET DAILY Rx Instructions: TAKE 1 TABLET DAILY hydrochlorothiazide 25 mg tablet See Rx Instructions .ROUTE .COMPLEX Qty: 90 1RF Dose Instruction: TAKE 1 TABLET DAILY Rx Instructions: TAKE 1 TABLET DAILY estradiol [Estrace] 0.01 % (0.1 mg/gram) cream 1 g VAGINAL 2XW Qty: 42.5 5RF amlodipine 5 mg tablet 5 mg PO DAILY Qty: 90 1RF Follow-up/Referrals: KEY,GILSON NEWBERRY [Primary Care Provider] -
--- NOTE | 2025-03-05 17:22 | ECG_ITS ---
Test Date: 2025-03-05 17:27:59 Measurements Intervals [place] Rate: 68 P: 28 VT: 215 QRS: -42 QRSD: 90 T: 1 QT: 401 QTc: 428 Interpretive Statements SINUS RHYTHM WITH FIRST DEGREE AV BLOCK LEFT AXIS DEVIATION INCOMPLETE RIGHT BUNDLE BRANCH BLOCK LOW QRS VOLTAGE IN PRECORDIAL LEADS POSSIBLE ANTERIOR MYOCARDIAL INFARCTION , OF INDETERMINATE AGE BASELINE ARTIFACT- I, II, III, AVR, AVL, AVF, V1, V3 ABNORMAL ECG Compared to ECG 03/05/2025 14:35:29 First degree AV block now present Electronically Signed On 03-05-2025 20:00:30 CDT by Arnoldo Mercedes D.O.
[2025-03-05 17:57] LABS: Troponin I < 0.012 ng/mL (0.000-0.034)
[2025-03-05 18:20] VITALS: BP 118/81; PULSE 74; RESP 16; O2SAT 99
== END 2025-03-05 18:21 | disposition home or self-care (01) ==
PROVIDERS: Emergency Medicine; Emergency Provider Emergency Medicine; PCP Nurse Practitioner Family
DX: R07.9 Chest pain, unspecified (principal); Z98.49 Cataract extraction status, unspecified eye; Z90.710 Acquired absence of both cervix and uterus; Z79.620 Long term (current) use of immunosuppressive biologic; Z79.82 Long term (current) use of aspirin; Z79.899 Other long term (current) drug therapy; R94.31 Abnormal electrocardiogram [ECG] [EKG]; I44.0 Atrioventricular block, first degree; I45.10 Unspecified right bundle-branch block
CPT/HCPCS: 36415; 71045; 71275; 74174; 80053; 83690; 84484; 85025; 85610; 85730; 93005; 99284; A9270; Q9967

== ENCOUNTER 2025-06-21 08:51 | Emergency (ER) | payer MEDICARE, SELFPAY ==
--- OUTSIDE RECORDS SUMMARY | 2022-09-14 08:30 | XMS_ITS | Continuity of Care Document ---
Author Organization [facility] Address [address] [place] [address] Phone Care Team Providers Care Art Tracer Name Role Phone Dheeraj Sharma Unavailable Unavailable Procedures Procedure Date Progress Note Therapeutic Activities Neuromuscular Re-Ed Therapeutic Exercise Hot or Cold Pack Therapeutic Activities Neuromuscular Re-Ed Hot or Cold Pack Therapeutic Activities Neuromuscular Re-Ed Therapeutic Exercise Hot or Cold Pack Therapeutic Activities Neuromuscular Re-Ed Therapeutic Exercise Hot or Cold Pack Therapeutic Activities Neuromuscular Re-Ed Therapeutic Exercise Hot or Cold Pack Therapeutic Activities Therapeutic Exercise Hot or Cold Pack Therapeutic Activities Hot or Cold Pack Therapeutic Exercise Doc neg elder mal no plan OT Evaluation Low Complexity Therapeutic Activities Therapeutic Exercise Hot or Cold Pack Advance Directives Directive Yes / No Effective Date File Name No Information Encounters Encounter Description Practice Location Reason(s) For Visit Diagnoses Date Provider Providers Copied on Encounter [facility], [address], [place], [place], [id number], [place] tel:[phone] [place] No Information Dec-1 4- 2 Hossein Dheeraj. . Referring Provider: Shira Alcocer, [facility] [address], [place], [address]. tel:[phone], [place], [place], [id number], [place] tel:[phone] [place] No Information Dec-1 2-202 2 Hossein Dheeraj. . Referring Provider: Shira Alcocer, [facility] [address], [place], [address]. tel:[phone] [address], [place], [place], [id number], tel:[phone] [place] No Information Dec-0 7- 2 Hossein Dheeraj. . Referring Provider: Shira Alcocer, [facility] [address], [place], [address]. tel:[phone] [address], [place], [place], [id number], [place] tel:[phone] [place] No Information Dec-0 5- 2 Hossein Dheeraj. . Referring Provider: Shira Alcocer, [facility] [address], [place], [address]. tel:[phone], [place], [place], [id number], [place] tel:[phone] [place] No Information Nov-3 0-202 2 Hossein Dheeraj. . Referring Provider: Shira Alcocer, [facility] [address], [place], [address]. tel:[phone], [place], [place], [id number], [place] tel:[phone] [place] No Information Nov-2 8-202 2 Hossein Dheeraj. . Referring Provider: Shira Alcocer, [address] [facility] [address], [place], [address]. tel:[phone] [place] [address] [facility] [address], [place], [place], [id number], tel:[phone] [place] No Information 2 Hossein Esqueda. . Referring Provider: Shira Alcocer, [address] [facility] [address], [place], [address]. tel:[phone] [facility] [address] [place], [place] [address], [place], [place], [id number], tel:[phone] [place] No Information 2 Hossein Esqueda. . Referring Provider: Shira Alcocer, [address] [facility] [address], [place], [address]. tel:[phone] Family History Family Member Type Diagnosis Age At Onset No Information Payers Payer name Insurance type Covered democrat ID clay olmstead(s) Aetna Medicare Replacement CI [id number] Social History Type Description Quantity Date Captured Comments Sex Female Smoking Status No Information Chief Complaint And Reason For Visit No Information Reason For Referral Reason For Referral No Information History Of Present Illness Encounter Date Complaint History Of Prese nt Illness No Information Functional Status Date Functional Assessmen t No Information Instructions Date Instruction Additional Infor mation Prescribed activity/exercise edu cation Related to Overweight Dietary needs education Related to Overweight Assessments Type Assessment Date No Information Patient Care Teams Name Effective Dates (start - stop) Status Members No Information
--- OUTSIDE RECORDS SUMMARY | 2022-09-14 08:30 | XMS_ITS | Continuity of Care Document ---
Author Organization [facility] Address [address] [place] [address] Phone Care Team Providers Care Vein Pumper Name Role Phone Dheeraj Sharma Unavailable Unavailable [...] Activities Therapeutic Exercise Hot or Cold Pack Doc neg elder mal no plan OT Evaluation Low Complexity Therapeutic Activities Therapeutic Exercise Hot or Cold Pack Advance Directives Directive Yes / No Effective Date File Name No Information Encounters Encounter Description Practice Location Reason(s) For Visit Diagnoses Date Provider Providers Copied on Encounter [facility], [address], [place], [place], [id number], [place] tel:[phone] [place] No Information Dec-1 4- 2 Hossein Dheeraj. . Referring Provider: Shira Alcocer, [facility] [address], [place], [address]. tel:[phone], [place], [place], [id number], [place] tel:[phone] [place] No Information Dec-1 2-202 2 Hossein Dheeraj. . Referring Provider: Shira Alcocer, [facility] [address], [place], [address]. tel:[phone] [address], [place], [place], [id number], tel:[phone] [place] No Information Dec-0 7- 2 Hossein Dheeraj. . Referring Provider: Shira Alcocer, [facility] [address], [place], [address]. tel:[phone] [address], [place], [place], [id number], [place] tel:[phone] [place] No Information Dec-0 5- 2 Hossein Dheeraj. . Referring Provider: Shira Alcocer, [facility] [address], [place], [address]. tel:[phone], [place], [place], [address], [place] tel:[phone] [place] No Information Nov-3 0-202 2 Hossein Dheeraj. . Referring Provider: Shira Alcocer, [facility] [address], [place], [address]. tel:[phone], [place], [place], [address], [place] tel:[phone] [place] No Information Nov-2 8-202 2 Hossein Dheeraj. . Referring Provider: Shira Alcocer, [address] [facility] [address], [place], [address]. tel:[phone] [place] [address] [facility] [address], [place], [place], [id number], tel:[phone] [place] No Information 2 Hossein Esqueda. . Referring Provider: Shira Alcocer, [address] [facility] [address], [place], [address]. tel:[phone] [facility] [address] [place], [place] [address], [place], [place], [id number], tel:[phone] [place] No Information 2 Hossein Esqueda. . Referring Provider: Shira Alcocer, [address] [facility] [address], [place], [address]. tel:[phone] Family History Family Member Type Diagnosis Age At Onset No Information Payers Payer name Insurance type Covered green party ID clay olmstead(s) Aetna Medicare Replacement CI [id number] Social History Type Description Quantity Date Captured [...]
--- OUTSIDE RECORDS SUMMARY | 2025-05-22 06:30 | XMS_ITS ---
Author Organization [facility] Address [address] [place], [place] [address] Care Team Providers Care Keeler Polygraph Operator Name Role Phone HARPREET TARIQ Unavailable [phone] Shira Alcocer Unavailable Unavailable JOSE FITZPATRICK Unavailable [phone] Allergies Allergen (clinical drug ingredient) Drug/Non Drug Allergy documented on EMR Reaction Allergy Type Onset Date Status cefaclor Ceclor (uncoded) Unknown Allergy 10/23/2019 ac tive REASON FOR VISIT wanting inj Vital Signs Height 61.00 in 05/22/2025 Weight 169 lbs 05/22/2025 BMI 31.93 kg/m2 05/22/2025 Height-cm 154.94 cm 05/22/2025 Weight-kg 76.66 kg 05/22/2025 Encounters Encounter Location Date Provider Diagnosis [facility] [address] [place], [place] [id number] 05/22/2025 JOSE FITZPATRICK Lesion of plantar nerve, left lower limb [...] Treatment Notes Treatment Clinical Notes Section Notes 05/22/2025 Lesion of plantar nerve, 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) 05/22/2025 Metatarsalgia of right foot (ICD-10 - M77.41) 05/22/2025 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) 05/22/2025 Other specified rheumatoid arthritis, right ankle and foot (ICD-10 - M06.871) 05/22/2025 Other specified rheumatoid arthritis, left ankle and foot (ICD-10 - M06.872) 05/22/2025 Hammer toe of right foot (ICD-10 - M20.41) 05/22/2025 Pain in right foot (ICD-10 - M79.671) 05/22/2025 Left foot pain (ICD-10 - M79.672) 05/22/2025 Other Following skin prep, a total of 3 ccs of a 1-1-1 mix of 0.5% marcaine plain, Kenalog, and dexamethasone sodium phosphate was injected into the patients right second interspace Following skin prep, a total of 3 ccs of a 1-1-1 mix of 0.5% marcaine plain, Kenalog, and dexamethasone sodium phosphate was injected into the patients left second interspace It was noted that the current orthotic conformed well to the patients foot in the subtalar joint neutral position. Plan Of Treatment Treatment Notes Assessment Notes Other Following skin prep, a total of 3 ccs of a 1-1-1 mix of 0.5% marcaine plain, Kenalog, and dexamethasone sodium phosphate was injected into the patients right second interspace Following skin prep, a total of 3 ccs of a 1-1-1 mix of 0.5% marcaine plain, Kenalog, and dexamethasone sodium phosphate was injected into the patients left second interspace It was noted that the current orthotic conformed well to the patients foot in the subtalar joint neutral position. Next Appt Details Follow Up: 3 Weeks,neuroma f ollow up, Reason: Progress Notes * ROVERTO CAMARGOOB:1955 ( 70 yo F)Acc No.[id number]:05/22/2025 Patient: ALFREDITO BARKER Provider: Jossie FITZPATRICK :1955 A ge:70 Y S ex:Female Date:05/22/2025 Address:[facility] [address], [facility] Subjective: * Chief Complaints: * 1 . Wanting inj. * HPI: H PI: New Complaint E stablished patient presents with a new complaint., Patient complains of an issue to B/L foot pain. Patient requesting injection. , Patient denies any injury., MA: ch. * ROS: G eneral / Constitutional: Patient denies c hills, fever, chills, fever. ? E ndocrine: Patient denies e xcessive thirst, frequent urination, excessive thirst, frequent urination. C ardiovascular: Patient denies s hortness of breath, chest pain, shortness of breath, chest pain. S kin: Patient denies m ole changes, mole changes. ? * Medical History: M edical History Verified. * Family History: F ather: PRN - Father: . M other: PRN - Mother: . * Social History: M igrated Social History: M igrated Social History: History of tobacco use : , Smoking Status : Never used tobacco , Alcohol intake :. * Medications: N one * Allergies: C eclor: Allergy - Onset [...] metatarsal heads braxton. Pain on palpation of left 2nd interspace . Derm: S kin is warm and dry, [...] < 3 seconds to all digits. . Assessment: * Assessment: 1. M moises's neuroma of right foot - G57.61 (Primary) 2 . L esion of plantar nerve, left lower limb - G57.62 3 . M etatarsalgia of right foot - M77.41 4 . O ther specified rheumatoid arthritis, right ankle and foot - M06.871 5 . O ther specified rheumatoid arthritis, left ankle and foot - M06.872 6 . H ammer toe of right foot - M20.41 7 . P ain in right foot - M79.671 8 . L eft foot pain - M79.672 Plan: * Treatment: * Procedure Codes: 6 4455 N BLOCK INJ, PLANTAR DIGIT, Modifiers: 50 * Follow Up: 3 Weeks,neuroma follow up * Billing Information: * Visit Code: 07545 Office Visit, Est Pt., Level 3. Modifiers: 25 * Procedure Codes: 88272 N BLOCK INJ, PLANTAR DIGIT. Modifiers: 50 * Electronic signature of BIA FITZPATRICK DPM on 06/21/2025 at 08:54 AM CDT Sign off status: Pending * Provider: Jossie FITZPATRICK Date: 0 05/22/2025 Generated for Baldomero mosher/Bobby/John on: 0 06/21/2025 08:54 AM CDT History and Physical Notes * HPI (History of Present Illness) Category Sub-Category Detail Notes Category Not es HPI New Complaint Established joana ent presents with a new complaint., Patient complains of an issue to B/L foot pain. Patient requesting injection. , Patient denies any injury., MA: ch Examination Category Sub-Category Detail Notes Category Not es Physical Examination Gen: The patient is awake, [...] metatarsal heads braxton. Pain on palpation of left 2nd interspace Derm: Skin is warm and dry , with no rashes, good skin turgor and normal hair distribution. Hyperkeratotic lesions noted: medial 3rd PIPJ right , Skin is warm and dry, with no rashes, good skin turgor and normal hair distribution. Hyperkeratotic lesions noted: medial 3rd PIPJ right
--- NOTE | ~2025-06-21 | XR_ITS ---
X-rays left shoulder Indication: Left arm pain Comparison: None Technique: 3 views left shoulder Findings/Impression: 1. Displaced spiral fracture proximal humeral shaft. 2. No shoulder joint dislocation. Reviewed, dictated and finalized at location R.
--- OUTSIDE RECORDS SUMMARY | 2025-06-21 08:54 | XMS_ITS | Encounter Summary ---
Author Organization [facility] Address [facility] [place] [address] Care Team Providers Care Professional Services Consultant Name Role Phone Abelino Suggs MD Unavailable [phone] Pancho Young MD Unavailable Unavailable Tien VII, Marquez Allan MD Primary Care Prov ider Melanie Oliva Primary Care Provider [phone] Encounter Details Date Type Department Care Team (Late st Contact Info) Description 07/10/2024 Angiodroid Message Enc [facility] Medical [facility] Family Medicine - [place] [address] [facility], [address] [place] [id number] T[place]anie, [facility] Provider PFT Order Social History Tobacco Use Types Packs/Day Years Used Date Smoking Tobacco: Never Passive Smoke Exposure: Past Smokeless Tobacco: Never Comments:N/A Alcohol Use Standard Drinks/Week Comments Yes 2 (1 standard drink = 0.6 oz pur e alcohol) social PHQ-2 Answer Date Recorded Patient Health Questionnaire-2 Score 0 02/07/2024 Comments No Sex and Gender Information Value Date Recorded Sex Assigned at Female 11/14/2024 1:31 PM SECURITY ROVER Legal Sex Female 7:06 PM CDT Gender Identity Female 11/14/2024 1:31 PM SECURITY ROVER Sexual Orientation Not on file documented as of this encounter Plan of Treatment Upcoming Encounters Date Type Department Care Team (Late st Contact Info) Description 06/30/2025 9:45 AM CDT Office Visit [facility] [address] [place] [address] Abelino Suggs MD [address] [facility] [address] [place] [address] 11/17/2025 1:40 PM SECURITY ROVER Office Visit [facility] Medical [facility] Family & Internal Medicine - [place] [address] [place] [address] Melanie Oliva FNP [address] [place] [address] documented as of this encounter Visit Diagnoses Not on filedocumented in this encounter Additional Health Concerns Assessment Noted Time PHQ-9 Depression Total Score: 0 06/08/20 9:14 AM CDT documented as of this encounter Care Teams Professional Services Consultant Relationship Specialty Start Date End Date Tien VII, Marquez Allan MD [address] [place] [address], [address] [address] PCP - General FAMILY PRACTICE 07/10/24 10/07/24 Melanie Oliva FNP [facility] [place] [address] PCP - General Nurse Practitioner Family 10/08/24 Abelino Suggs MD [address] [place] [address] Physician CARDIOVASCULAR DISEASE 09/19/23 Pancho Young MD [address] [place] [address] Consulting Physician ORTHOPAEDIC SURGERY 09/19/23 documented as of this encounter
--- OUTSIDE RECORDS SUMMARY | 2025-06-21 08:54 | XMS_ITS | Encounter Summary ---
Author Organization [facility] Healthcare Address [address] [place] [address] Care Team Providers Care Matting Press Tender Name Role Phone Shira Alcocer MD Primary Care Provider [phone] Derrick Varghese MD Unavailable Saroj Cornejo [facility] Unavailable Unavaila Talia Knowles RN Unavailable Unavailable Encounter Details Date Type Department Care Team (Late st Contact Info) Description 06/09/[address] [facility] Home Infusion Therapy [address] [place] [address] Saroj Cornejo [facility] Social History Tobacco Use Types Packs/Day Years Used Date Smoking Tobacco: Never Passive Smoke Exposure: Past Smokeless Tobacco: Never Alcohol Use Standard Drinks/Week Comments Yes 0 (1 standard drink = 0.6 oz pur e alcohol) OASIS D0700: Social Isolation Answer Da te Recorded Frequency of experiencing loneliness or isolatio n Never 03/03/2025 AUDIT-C Answer Date Recorded Q1: How often [...] on file Legal Sex Female 3:12 AM PRODUCTION PLANNER Gender Identity Not on file Sexual Orientation Not on file documented as of this encounter Plan of Treatment Not on file documented as of this encounter Visit Diagnoses Not on filedocumented in this encounter Care Teams Matting Press Tender Relationship Specialty Start Date End Date Shira Alcocer MD [address] [address] PCP - General Family Practice 06/11/21 Derrikc Varghese MD [address] [facility], [address] [address] PCP - Home Infusion Attending Internal Medicine 02/24/25 Saroj Cornejo, [facility] Pharmacist Pharmacy 03/04/25 Talia Reynolds, [facility] 03/06/25 documented as of this encounter
--- OUTSIDE RECORDS SUMMARY | 2025-06-21 08:54 | XMS_ITS | Encounter Summary ---
Author Organization [facility] Address [facility] [place] [address] Care Team Providers Care Recreation Facility Manager Name Role Phone Abelino Suggs MD Unavailable [phone] Pancho Young MD Unavailable Unavailable Tien VII, Marquez Allan MD Primary Care Prov ider Melanie Oliva Primary Care Provider [phone] Encounter Details Date Type Department Care Team (Late st Contact Info) Description 08/16/2024 My 1% Message Enc [facility] Medical Group Family Medicine - [place] [phone] [place], [facility] Provider labs Social History Tobacco Use Types Packs/Day Years Used Date Smoking Tobacco: Never Passive Smoke Exposure: Past Smokeless Tobacco: Never Comments:N/A Alcohol Use Standard Drinks/Week Comments Yes 2 (1 standard drink = 0.6 oz pur e alcohol) social PHQ-2 Answer Date Recorded Patient Health Questionnaire-2 Score 0 02/07/2024 Comments No Sex and Gender Information Value Date Recorded Sex Assigned at Female 11/14/2024 1:31 PM CRUDE OIL TREATER Legal Sex Female 7:06 PM CDT Gender Identity Female 11/14/2024 1:31 PM CRUDE OIL TREATER Sexual Orientation Not on file documented as of this encounter Plan of Treatment Upcoming Encounters Date Type Department Care Team (Late st Contact Info) Description 06/30/2025 9:45 AM CDT Office Visit [facility] [address] [place] [address] Abelino Suggs MD [address] [facility] [address] [place] [address] 11/17/2025 1:40 PM CRUDE OIL TREATER Office Visit [facility] Medical Group Family & Internal Medicine - [place] [address] [place] [address] Melanie Oliva FNP [address] [place] [address] documented as of this encounter Visit Diagnoses Not on filedocumented in this encounter Additional Health Concerns Assessment Noted Time PHQ-9 Depression Total Score: 0 06/08/20 9:14 AM CDT documented as of this encounter Care Teams Recreation Facility Manager Relationship Specialty Start Date End Date Tien VII, Marquez Allan MD [address] [place] [address], [address] [address] PCP - General FAMILY PRACTICE 07/10/24 10/07/24 Melanie Oliva FNP [facility] [place] [address] PCP - General Nurse Practitioner Family 10/08/24 Abelino Suggs MD [address] [place] [address] Physician CARDIOVASCULAR DISEASE 09/19/23 Pancho Young MD [facility] [address] [place] [address] Consulting Physician ORTHOPAEDIC SURGERY 09/19/23 documented as of this encounter
--- OUTSIDE RECORDS SUMMARY | 2025-06-21 08:54 | XMS_ITS | Encounter Summary ---
Author Organization [facility] Address [address] [place] [address] Care Team Providers Care Fighting Vehicle Systems Maintainer Name Role Phone Shira Alcocer MD Primary Care Provider [phone] Abelino Suggs MD Unavailable [phone] Pancho Young MD Unavailable Unavailable Tien VII, Marquez Allan MD Primary Care Prov ider Melanie Oliva Primary Care Provider [phone] Encounter Details Date Type Department Care Team (Late st Contact Info) Description 08/18/2022 MyChart Message Enc [facility] Medical Group Family Medicine - [place] [address] [facility], [address] [place] [address] [place] [address] [address] [address] PT Social History Tobacco Use Types Packs/Day Years Used Date Smoking Tobacco: Never Smokeless Tobacco: Never Comments:N/A Alcohol Use Standard Drinks/Week Comments Yes 0 (1 standard drink = 0.6 oz pur e alcohol) social PHQ-2 Answer Date Recorded PHQ-2 Score - If the patient scores above 3, please move on to questions 3-9 0 08/12/2022 Comments No Sex and Gender Information Value Date Recorded Sex Assigned at Female 11/14/2024 1:31 PM BORING MACHINE OPERATOR Legal Sex Female 7:06 PM CDT Gender Identity Female 11/14/2024 1:31 PM BORING MACHINE OPERATOR Sexual Orientation Not on file COVID-19 Exposure Response Date Recorded In the last 10 days, have yo u been in contact with someone who was confirmed or suspected to have Coronavirus/COVID-19? No / Unsure 08/12/2022 11:32 AM BORING MACHINE OPERATOR documented as of this encounter Plan of Treatment Upcoming Encounters Date Type Department Care Team (Late st Contact Info) Description 06/30/2025 9:45 AM CDT Office Visit [facility] [address] [place], [place] [phone] Abelino Suggs MD [facility], [address] [place] [address] 11/17/2025 1:40 PM BORING MACHINE OPERATOR Office Visit [facility] Medical Group Family & Internal Medicine - [place] [address] [place] [address] Melanie Oliva FNP [address] [place] [address] documented as of this encounter Visit Diagnoses Not on filedocumented in this encounter Additional Health Concerns Assessment Noted Time PHQ-9 Depression Total Score: 0 06/08/20 21 9:14 AM CDT documented as of this encounter Care Teams Fighting Vehicle Systems Maintainer Relationship Specialty Start Date End Date Shira Alcocer MD PCP - General FAMILY PRACTICE 06/08/21 07/09/24 Marquez Ngo MD [address] [place] [address], [address] [address] PCP - General FAMILY PRACTICE 07/10/24 10/07/24 Melanie Oliva FNP [address] [place] [address] PCP - General Nurse Practitioner Family 10/08/[address] [facility], [address] [place] [address] Physician CARDIOVASCULAR DISEASE 09/19/[address] [facility], [address] [place] [address] Consulting Physician ORTHOPAEDIC SURGERY 09/19/23 documented as of this encounter
--- OUTSIDE RECORDS SUMMARY | 2025-06-21 08:54 | XMS_ITS | Encounter Summary ---
Author Organization [facility] Address [address] [place] [address] Care Team Providers Care Program Assistant Name Role Phone Shria Alcocer MD Primary Care Provider [phone] Abelino Suggs MD Unavailable [phone] Pancho Young MD Unavailable Unavailable Tien VII, Marquez Allan MD Primary Care Prov ider Melanie Oliva Primary Care Provider [phone] Encounter Details Date Type Department Care Team (Late st Contact Info) Description 09/01/2021 MyChart Message Enc [facility] Medical [facility] Family Medicine - [place] [address] [facility], [address] [place] [address] [place] [address] [address] Referral Social History Tobacco Use Types Packs/Day Years Used Date Smoking Tobacco: Never Smokeless Tobacco: Never Comments:N/A Alcohol Use Standard Drinks/Week Comments Yes 0 (1 standard drink = 0.6 oz pur e alcohol) social PHQ-2 Answer Date Recorded PHQ-2 Score - If the patient scores above 3, please move on to questions 3-9 0 06/08/2021 Comments No Sex and Gender Information Value Date Recorded Sex Assigned at Female 11/14/2024 1:31 PM RISK MANAGEMENT PROFESSIONAL Legal Sex Female 7:06 PM CDT Gender Identity Female 11/14/2024 1:31 PM RISK MANAGEMENT PROFESSIONAL Sexual Orientation Not on file COVID-19 Exposure Response Date Recorded In the last month, have you been in contact with someone who was confirmed or suspected to have Coronavirus / COVID-19? No / Unsure 08/16/2021 7:12 PM RISK MANAGEMENT PROFESSIONAL documented as of this encounter Plan of Treatment Upcoming Encounters Date Type Department Care Team (Late st Contact Info) Description 06/30/2025 9:45 AM CDT Office Visit [facility] [address] [place], [place] [address] Abelino Suggs MD [facility], [address] [place] [address] 11/17/2025 1:40 PM RISK MANAGEMENT PROFESSIONAL Office Visit [facility] Medical Group Family & Internal Medicine [facility] [address] [place] [address] Melanie Oliva FNP [address] [place] [address] documented as of this encounter Visit Diagnoses Not on filedocumented in this encounter Additional Health Concerns Assessment Noted Time PHQ-9 Depression Total Score: 0 06/08/20 21 9:14 AM CDT documented as of this encounter Care Teams Program Assistant Relationship Specialty Start Date End Date Shira Alcocer MD PCP - General FAMILY PRACTICE 06/08/21 07/09/24 Marquez Ngo MD [address] [place] [address], [address] [address] PCP - General FAMILY PRACTICE 07/10/24 10/07/24 Melanie Oliva FNP [address] [place] [address] PCP - General Nurse Practitioner Family 10/08/24 Abelino Suggs MD [facility], [address] [place] [address] Physician CARDIOVASCULAR DISEASE 09/19/23 Pancho Young MD [facility], [address] [place] [address] Consulting Physician ORTHOPAEDIC SURGERY 09/19/23 documented as of this encounter
--- OUTSIDE RECORDS SUMMARY | 2025-06-21 08:54 | XMS_ITS | Encounter Summary ---
Author Organization [facility] Address [address] [place] [address] Care Team Providers Care Propellant Charge Zone Assembler Name Role Phone Shira Alcocer MD Primary Care Provider [phone] Abelino Suggs MD Unavailable [phone] Pancho Young MD Unavailable Unavailable Tien VII, Marquez Allan MD Primary Care Prov ider Melanie Oliva Primary Care Provider [phone] Encounter Details Date Type Department Care Team (Late st Contact Info) Description 09/12/2022 MyCABSMaterialst Message Enc [facility] Family Medicine - [place] [address], [address] [place] [address] [place] [address] [address] Return visits Social History Tobacco Use Types Packs/Day Years [...] Sex Assigned at Female 11/14/2024 1:31 PM STAFFING BRANCH MANAGER Legal Sex Female 7:06 PM CDT Gender Identity Female 11/14/2024 1:31 PM STAFFING BRANCH MANAGER Sexual Orientation Not on file COVID-19 Exposure Response Date Recorded In the last 10 days, have yo u been in contact with someone who was confirmed or suspected to have Coronavirus/COVID-19? No / Unsure 08/23/2022 1:12 PM STAFFING BRANCH MANAGER documented as of this encounter Plan of Treatment Upcoming Encounters Date Type Department Care Team (Late st Contact Info) Description 06/30/2025 9:45 AM CDT Office Visit [facility] [address] [place], [place] [id number] Abelino Suggs MD [facility], [address] [place] [address] 11/17/2025 1:40 PM STAFFING BRANCH MANAGER Office Visit [facility] Family & Internal Medicine - [place] [address] [place] [address] Melanie Oliva FNP [address] [place] [address] documented as of this encounter Visit Diagnoses Not on filedocumented in this encounter Additional Health Concerns Assessment Noted Time PHQ-9 Depression Total Score: 0 06/08/20 21 9:14 AM CDT documented as of this encounter Care Teams Propellant Charge Zone Assembler Relationship Specialty Start Date End Date Shira Alcocer MD PCP - General FAMILY PRACTICE 06/08/21 07/09/24 Marquez Ngo MD [address] [place] [address], [address] [address] PCP - General FAMILY PRACTICE 07/10/24 10/07/24 Melanie Oliva FNP [address] [place] [address] PCP - General Nurse Practitioner Family 10/08/24 Abelino Suggs MD [facility], [address] [place] [address] Physician CARDIOVASCULAR DISEASE 09/19/23 Pancho Young MD [facility], [address] [place] [address] Consulting Physician ORTHOPAEDIC SURGERY 09/19/23 documented as of this encounter
--- OUTSIDE RECORDS SUMMARY | 2025-06-21 08:54 | XMS_ITS | Encounter Summary ---
Author Organization [facility] Address [address] [place] [address] Care Team Providers Care Hospitalist Program Director Name Role Phone Abelino Suggs MD Unavailable [phone] Pancho Young MD Unavailable Unavailable Tien VII, Marquez Allan MD Primary Care Prov ider Melanie Oliva Primary Care Provider [phone] Encounter Details Date Type Department Care Team (Late st Contact Info) Description 08/27/2024 MyChart Message Enc [facility] Family Medicine - [place] [address] [facility], [address] [place] [address] [place] [address] [address] [id number] C[place] Social History Tobacco Use Types Packs/Day Years Used Date Smoking Tobacco: Never Passive Smoke Exposure: Past Smokeless Tobacco: Never Comments:N/A Alcohol Use Standard Drinks/Week Comments Yes 2 (1 standard drink = 0.6 oz pur e alcohol) social PHQ-2 Answer Date Recorded Patient Health Questionnaire-2 Score 0 02/07/2024 Comments No Sex and Gender Information Value Date Recorded Sex Assigned at Female 11/14/2024 1:31 PM TAPE EDITOR Legal Sex Female 7:06 PM CDT Gender Identity Female 11/14/2024 1:31 PM TAPE EDITOR Sexual Orientation Not on file documented as of this encounter Plan of Treatment Upcoming Encounters Date Type Department Care Team (Late st Contact Info) Description 06/30/2025 9:45 AM CDT Office Visit [facility] [address] [place] [address] Abelino Suggs MD [facility], [address] [facility] [place] [address] 11/17/2025 1:40 PM TAPE EDITOR Office Visit [facility] Family & Internal Medicine - [place] [address] [place] [address] Melanie Oliva FNP [address] [place] [address] documented as of this encounter Visit Diagnoses Not on filedocumented in this encounter Additional Health Concerns Assessment Noted Time PHQ-9 Depression Total Score: 0 06/08/20 21 9:14 AM CDT documented as of this encounter Care Teams Hospitalist Program Director Relationship Specialty Start Date End Date Tien VII, Marquez Allan MD [address] [place] [address] PCP - General FAMILY PRACTICE 07/10/24 10/07/24 Melanie Oliva FNP [facility] [place] [address] PCP - General Nurse Practitioner Family 10/08/24 Abelino Suggs MD [facility], [address] [facility] [place] [address] Physician CARDIOVASCULAR DISEASE 09/19/23 Pancho Young MD [facility], [address] [place] [address] Consulting Physician ORTHOPAEDIC SURGERY 09/19/23 documented as of this encounter
--- OUTSIDE RECORDS SUMMARY | 2025-06-21 08:54 | XMS_ITS | Encounter Summary ---
Author Organization [facility] Address [address] [place] [address] Phone Care Team Providers Care Lay Out And Detail Drafter Name Role Phone Moris Duncan MD Primary Care Provider [phone] Shira Alcocer MD Primary Care Provider [phone] Derrick Varghese MD Unavailable [phone] [facility], located [facility] Unavailable Unavaila Talia Knowles RN Unavailable Unavailable Encounter Details Date Type Department Care Team (Late st Contact Info) Description 04/09/2019 Orders Only [facility] Scanning, Provider Social History Tobacco Use Types Packs/Day Years Used Date Smoking Tobacco: Never Smokeless Tobacco: Never Comments Unknown Sex and Gender Information Value Date Recorded Sex Assigned at Not on file Legal Sex Female 3:12 AM PHOTOGRAPHY ASSISTANT Gender Identity Not on file Sexual Orientation Not on file documented as of this encounter Plan of Treatment Not on file documented as of this encounter Procedures Procedure Name Priority Date/Time Associated Diagnosis Comments SCAN - LABS 04/09/2019 documented in this encounter Results * SCAN - LABS (04/09/2019) us Provider Scanning Final Result documented in this encounter Visit Diagnoses Not on filedocumented in this encounter Care Teams Lay Out And Detail Drafter Relationship Specialty Start Date End Date Moris Duncan MD [address] [place] [address] PCP - General 04/21/17 06/10/21 Shira Alcocer MD [address] [facility] [address] [place] [address] PCP - General Family Practice 06/11/21 Derrick Varghese MD [address] [facility], [address] [address] PCP - Home Infusion Attending Internal Medicine 02/24/25 Saroj Cornejo, [facility] Pharmacist Pharmacy 03/04/25 Talia Reynolds, [facility] 03/06/25 documented as of this encounter
--- OUTSIDE RECORDS SUMMARY | 2025-06-21 08:54 | XMS_ITS | Encounter Summary ---
Author Organization [facility] Address [address] [place] [address] Care Team Providers Care Claims Administrator Name Role Phone Shira Alcocer MD Primary Care Provider [phone] Abelino Suggs MD Unavailable [phone] Pancho Young MD Unavailable Unavailable Tien VII, Marquez Allan MD Primary Care Prov ider Melanie Oliva Primary Care Provider [phone] Encounter Details Date Type Department Care Team (Late st Contact Info) Description 07/29/2021 MyCCatch Mediat Message Enc [facility] Family Medicine - [place] [address] [facility], [address] [place] [address] [place] [address] [address] Test Results Social History Tobacco Use Types Packs/Day Years [...] Sex Assigned at Female 11/14/2024 1:31 PM COW TENDER Legal Sex Female 7:06 PM CDT Gender Identity Female 11/14/2024 1:31 PM COW TENDER Sexual Orientation Not on file COVID-19 Exposure Response Date Recorded In the last month, have you been in contact with someone who was confirmed or suspected to have Coronavirus / COVID-19? No / Unsure 07/29/2021 8:09 AM CDT documented as of this encounter Plan of Treatment Upcoming Encounters Date Type Department Care Team (Late st Contact Info) Description 06/30/2025 9:45 AM CDT Office Visit [facility] [address] [place], [place] [address] Abelino Suggs MD [facility], [address] [place] [address] 11/17/2025 1:40 PM COW TENDER Office Visit [facility] Family & Internal Medicine - [place] [address] [place] [address] Melanie Oliva FNP [address] [place] [address] documented as of this encounter Visit Diagnoses Not on filedocumented in this encounter Additional Health Concerns Assessment Noted Time PHQ-9 Depression Total Score: 0 06/08/20 21 9:14 AM CDT documented as of this encounter Care Teams Claims Administrator Relationship Specialty Start Date End Date Shira Alcocer MD PCP - General FAMILY PRACTICE 06/08/21 07/09/24 Marquez Ngo MD [address] [place] [address], [address] [address] PCP - General FAMILY PRACTICE 07/10/24 10/07/24 Melanie Oliva FNP [address] [place] [address] PCP - General Nurse Practitioner Family 10/08/24 Abelino Suggs MD [facility], [address] [place] [address] Physician CARDIOVASCULAR DISEASE 09/19/23 Pancho Young MD [facility], [address] [place] [address] Consulting Physician ORTHOPAEDIC SURGERY 09/19/23 documented as of this encounter
--- OUTSIDE RECORDS SUMMARY | 2025-06-21 08:54 | XMS_ITS | Encounter Summary ---
Author Organization [facility] Address [address] [place] [address] Care Team Providers Care Boat Crew Deck Hand Name Role Phone Shira Alcocer MD Primary Care Provider [phone] Abelino Suggs MD Unavailable [phone] Pancho Young MD Unavailable Unavailable Tien VII, Marquez Allan MD Primary Care Prov ider Melanie Oliva Primary Care Provider [phone] Encounter Details Date Type Department Care Team (Late st Contact Info) Description 09/27/2021 MyChart Message Enc [facility] Family Medicine - [place] [address] [facility], [address] [place] [address] [place] [address] [address] Follow up visits Social History Tobacco Use Types Packs/Day [...] Sex Assigned at Female 11/14/2024 1:31 PM DIAMOND CLEANER Legal Sex Female 7:06 PM CDT Gender Identity Female 11/14/2024 1:31 PM DIAMOND CLEANER Sexual Orientation Not on file documented as of this encounter Plan of Treatment Upcoming Encounters Date Type Department Care Team (Late st Contact Info) Description 06/30/2025 9:45 AM CDT Office Visit [facility] [address] [place] [address] Abelino Suggs MD [facility], [address] [place] [address] 11/17/2025 1:40 PM DIAMOND CLEANER Office Visit [facility] Family & Internal Medicine - [place] [address] [place] [address] Melanie Oliva FNP [address] [place] [address] documented as of this encounter Visit Diagnoses Not on filedocumented in this encounter Additional Health Concerns Assessment Noted Time PHQ-9 Depression Total Score: 0 06/08/20 9:14 AM CDT documented as of this encounter Care Teams Boat Crew Deck Hand Relationship Specialty Start Date End Date Shira Alcocer MD PCP - General FAMILY PRACTICE 06/08/21 07/09/24 Marquez Ngo MD [address] [place] [address], [address] [address] PCP - General FAMILY PRACTICE 07/10/24 10/07/24 Melanie Oliva FNP [address] [place] [address] PCP - General Nurse Practitioner Family 10/08/24 Abelino Suggs MD [facility], [address] [place], [place] [address] Physician CARDIOVASCULAR DISEASE 09/19/23 Pancho Young MD [facility], [address] [place] [address] Consulting Physician ORTHOPAEDIC SURGERY 09/19/23 documented as of this encounter
--- OUTSIDE RECORDS SUMMARY | 2025-06-21 08:54 | XMS_ITS | Clinical Summary ---
Author Organization [facility] Address [address] [place] [address] Care Team Providers Care Car Checker Name Role Phone Shira Alcocer MD Primary Care Provider [phone] Derrick Varghese MD Unavailable [phone] Saroj Cornejo [facility] Unavailable Unavaila Talia Knowles RN Unavailable Unavailable Allergies Active Allergy Reactions Criticality Noted Date [...] Active 0.9 % sodium chloride ([facility] sodium chloride 0.9%) injectionIndicat ions:Maintain Patency [...] 1 tablet (650 mg total) by mouth section crews activities clerk Please provide 650 mg acetaminophen by mouth 30 minutes prior to Remicade infusion Active ketoconazole (NIZORAL) 2 % shampoo 08/12/20 [...] 30 minutes prior to infusion 12/06/19 25 Active Additional Information Patient not taking.Reported on 02/12/2025 escitalopram (LEXAPRO) 10 mg tablet Take 1 tablet (10 mg total) by mouth daily 11/19/19 25 Active vitamin B complex capsule Take 1 capsule by mouth daily Active omega-3 fatty acids-fish oil 300-1,000 mg [...] 250mL/hr with 1.2um filter every 8 weeks. 360 mL 05/28/2025 11:59 PM CDT 12/07/19 25 026 Active sodium chloride 0.9% flush syringeIndicatio ns:Psoriatic arthritis mutilans (HCC) Infuse 10 mL IV as needed for line care 1000 mL 12/07/19 25 026 Active acetaminophen (TYLENOL) 325 mg tabletIndication s:Psoriatic arthritis mutilans (HCC) Take 2 tablets (650 mg total) by mouth every 8 (eight) weeks Take 30 minutes prior to infusion 12 tablet 12/07/19 25 026 Active diphenhydrAMINE (BENADRYL) 25 mg capsuleIndicatio ns:Psoriatic arthritis mutilans (HCC) Take 1 tablet/capsule (25 mg total) by mouth every 8 (eight) weeks Take 30 minutes prior to infusion. 6 tablet/capsu le 12/07/19 25 026 Active 0.9 % sodium chloride (sodium chloride 0.9%) infusionIndicati ons:Psoriatic arthritis mutilans (HCC) Infuse 250 mL IV every 8 (eight) weeks Use as IVPB bag for Remicade infusion 1500 mL 05/28/2025 11:59 PM CDT 12/07/19 25 026 Active gabapentin (NEURONTIN) 300 mg capsule TAKE 1 CAPSULE(300 MG) BY MOUTH EVERY NIGHT 90 capsule 04/21/[address] (MYFORTIC) 360 mg EC tablet Take 1 tablet (360 mg total) by mouth 2 (two) times a day 180 tablet 1 04/25/20 25 Active diclofenac sodium (VOLTAREN) 1 % gel APPLY 2 GRAMS TOPICALLY 4 TIMES DAILY 300 g 05/02/20 25 Active Active Problems Problem Noted Date Diagnosed Date Essential hypertension 04/18/2019 Obesity (BMI 30.0-34.9) 04/18/2019 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 04/23/2017 Spondyloarthropathy 04/21/2017 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 Psoriatic arthritis 03/29/2016 Encounters Date Type Department Care Team Description 06/09/2025 Home Infusion [facility] [address] [place] [address] Saroj Cornejo, [facility] 05/28/2025 9:00 AM CDT Home Care Visit [facility] [address] [place] [address] Talia Reynolds RN [place] [facility] [address] R[address] 05/22/2025 Home Infusion [facility] [address] [place] [address] Saroj Cornejo, [facility] 05/15/2025 Home Infusion [facility] [address] [place] [address] Saroj Cornejo, [facility] 04/29/2025 Home Infusion [facility] [address] [place] [address] Saroj Cornejo, [facility] 04/28/2025 Orders Only [facility] [address] [facility] 2[address] Floor [address] [place] [address] Vasyl Ny 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 (Primary Dx) 03/31/2025 Home Infusion [facility] [address] [place] [address] Saroj Cornejo, [facility] from Last 3 Months Surgical History Surgery [...] History of hypertension - (A dded by TW Conv) Hyperlipidemia Dyslipidemia - ( Added by Conv) Allergic rhinitis Arthritis Rheumatoid arthritis (HCC) Hypertension Osteoporosis Family History Medical History Relation Name Comments Heart disease Brother Family history of cardiac disorder - (Added by TW Conv) Heart disease Father Heart disease Mother [...] on file Legal Sex Female 3:12 AM CUFF MAKER Gender Identity Not on file Sexual Orientation Not on file Obstetrics History Last Filed Vital Signs Vital Sign Reading Time Taken Comments Blood Pressure 113/78 05/28/2025 10:50 AM CDT Pulse 60 05/28/2025 10:50 AM CDT Temperature 36.4 C (97.6 F) 05/28/2025 10:50 AM CDT Respiratory Rate 16 05/28/2025 10:50 AM CDT Oxygen Saturation 100% 05/28/2025 10:50 AM CDT Inhaled Oxygen Concentration - - Weight 64.9 kg (143 lb) 05/28/2025 9:10 AM CDT Height 152.4 cm (5') 05/28/2025 9:10 AM CDT Body Mass Index 27.93 05/28/2025 9:10 AM CDT Plan of Treatment Health Maintenance Due Date Last Done Comments Colon Cancer Screening-Colonoscopy 1954 Depression Screening 1954 Fall Risk Assessment 1954 Hepatitis C Screening 1955 Osteoporosis Screening-Bone Density Scan 1954 Hepatitis B Screening 02/23/1972 Breast Cancer Screening-Mammogram 09/01/2012 011 Well Visit 65+ 2019 Pneumococcal vaccine 65+ (2 of 2 - PCV) 08/11/2021 08/11/2020 Covid-19 Vaccine (2024-2 6 season) 2025 05/18/2021, 11/30/2020, 11/09/2020 Influenza Vaccine (#1) 2025 4, 05/18/2021, 07/01/2020, Additional history exists DTaP/Tdap/Td Vaccine (2 - Td or Tdap) 12/12/2033 12/13/2023 Zoster Vaccine Completed 06/24/2019, 04/25/2019 Procedures Procedure Name Priority Date/Time Associated Diagnosis Comments CRP (ACUTE PHASE) Routine 05/06/2025 10: 06 AM CDT 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 CBC WITH AUTO DIFFERENTIAL Routine 05/06/2025 10:06 AM CDT 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 ERYTHROCYTE SEDIMENTATION RATE Routine 05/06/2025 10:04 AM CDT 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 COMPREHENSIVE METABOLIC PANEL Routine 05/06/2025 10:04 AM CDT 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 from Last 3 Months Results * (ABNORMAL) CBC with auto differential (05/06/2025 10:06 AM CDT) WBC 3.5(L) 3.8 - 10.8 Thousand/u L [facility] RBC, POC 3.97 3.80 - 5.10 Million/uL [facility] Hgb 13.4 11.7 - 15.5 g/dL [facility] Hct 41.1 35.0 - 45.0 % [facility] MCV 103.5(H) 80.0 - 100.0 fL [facility] MCH 33.8(H) 27.0 - 33.0 pg [facility] MCHC 32.6 32.0 - 36.0 g/dL [facility] Comment: For adults, a slight decrease in the calculated MCHC value (in the range of 30 to 32 g/dL) is most likely not clinically significant; however, it should be interpreted with caution in correlation with other red cell parameters and the patient's clinical condition. Rdw 12.4 11.0 - 15.0 % [facility] Platelets 352 140 - 400 Thousand/u L [facility] MPV 9.7 7.5 - 12.5 fL [facility] Neutrophils, abs 1,313(L) 1,500 - 7,800 cells/uL [facility] Lymphocytes, abs 1,509 850 - 3,900 cells/uL [facility] Monocyte abs 525 200 - 950 cells/uL [facility] Eosinophils, abs 123 15 - 500 cells/uL [facility] Basophils, abs 32 0 - 200 cells/uL [facility] Neutrophils 37.5 % [facility] Lymphocyte pct 43.1 % [facility] Monocytes 15.0 % [facility] Eosinophils 3.5 % [facility] Basophils 0.9 % [facility] Blood 05/06/2025 10:0 6 AM CDT 05/06/2025 10:07 AM CDT Narrative [facility] - 05/06/2025 6:03 PM CDT FASTING:YES FASTING: YES Derrick Varghese MD LAB BLOOD ORDERABLES Final Re sult Performing Organization Address [facility] de Phone Number [facility] [address] [place] [address] * CRP (acute phase) (05/06/2025 10:06 AM CDT) C-RP <5.0 <8.0 mg/L [facility] Blood 05/06/2025 10:0 6 AM CDT 05/06/2025 10:07 AM CDT Narrative [facility] - 05/06/2025 6:03 PM CDT FASTING:YES FASTING: YES Derrick Varghese MD LAB BLOOD ORDERABLES Final Re sult Performing Organization Address [facility] Co de Phone Number [facility] [address] [place] [address] * Erythrocyte sedimentation rate (05/06/2025 10:04 AM CDT) Erythrocyte sedimentation rate 14 < OR = 30 mm/h [facility] Blood 05/06/2025 10:0 4 AM CDT 05/06/2025 10:05 AM CDT Narrative [facility] - 05/06/2025 9:45 PM CDT FASTING:YES FASTING: YES us Derrick Varghese MD LAB BLOOD ORDERABLES Final Re sult [facility] [address] [place] [address] * (ABNORMAL) Comprehensive metabolic panel (05/06/2025 10:04 AM CDT) Pathologist [facility] Glucose 96 65 - 99 mg/dL [facility] Comment: Fasting reference interval BUN 13 7 - 25 mg/dL [facility] Creatinine 0.50(L) 0.60 - 1.00 mg/dL [facility] eGFR 100 > OR = 60 mL/min/1.7 3m2 [facility] BUN/creat ratio 26(H) 6 - 22 (calc) [facility] Sodium 137 135 - 146 mmol/L [facility] Potassium, pl 4.1 3.5 - 5.3 mmol/L [facility] Chloride 102 98 - 110 mmol/L [facility] CO2 29 20 - 32 mmol/L [facility] Calcium 9.5 8.6 - 10.4 mg/dL [facility] Protein, sr 7.1 6.1 - 8.1 g/dL [facility] Albumin 4.1 3.6 - 5.1 g/dL [facility] GLOBULIN 3.0 1.9 - 3.7 g/dL (calc) [facility] Alb/glob ratio 1.4 1.0 - 2.5 (calc) [facility] Bilirubin, total 0.5 0.2 - 1.2 mg/dL [facility] Alk phos 42 37 - 153 U/L [facility] AST 32 10 - 35 U/L [facility] ALT (SGPT) 25 6 - 29 U/L [facility] Blood 05/06/2025 10:0 4 AM CDT 05/06/2025 10:05 AM CDT Narrative [facility] - 05/06/2025 9:45 PM CDT FASTING:YES FASTING: YES us Derrick Varghese MD LAB BLOOD ORDERABLES Final Re sult [facility] [address] [place] [id number] from Last 3 Months Insurance [facility] ADV[facility]AGE [facility] [employer] Member Subscriber Plan / Payer (Ef fective 2020-Present) Name:Nighat Kelley Member ID:[id number] Relation to Subscriber:Self Name:Nighat Kelley Subscriber ID:[id number] Payer ID:[id number] (NAIC) Type:[facility] [employer] Address: [address] [place] [address] [facility] [place] [address] [facility] MED[employer] ADVANTAGE Care Teams Car Checker Relationship Specialty Start Date End Date Shira Alcocer MD [address] [facility] [address] [place] [address] PCP - General Family Practice 06/11/21 Derrick Varghese MD [address] [facility], [address] [address] PCP - Home Infusion Attending Internal Medicine 02/24/25 Saroj Cornejo, [facility] Pharmacist Pharmacy 03/04/25 Talia Reynolds, [facility] 03/06/25
--- OUTSIDE RECORDS SUMMARY | 2025-06-21 08:54 | XMS_ITS | Encounter Summary ---
Author Organization [facility] Address [address] [place] [address] Care Team Providers Care Auto Parts Delivery Driver Name Role Phone Shira Alcocer MD Primary Care Provider [phone] Abelino Suggs MD Unavailable [phone] Pancho Young MD Unavailable Unavailable Tien VII, Marquez Allan MD Primary Care Prov ider Melanie Oliva Primary Care Provider [phone] Encounter Details Date Type Department Care Team (Late st Contact Info) Description 05/08/2023 MyChart Message Enc [facility] Family Medicine - [place] [address] [facility], [address] [place] [address] [place] [address] [address] RSV vaccine Social History Tobacco Use Types Packs/Day Years Used Date Smoking Tobacco: Never Passive Smoke Exposure: Past Smokeless Tobacco: Never Comments:N/A Alcohol Use Standard Drinks/Week Comments Yes 0 (1 standard drink = 0.6 oz pur e alcohol) social PHQ-2 Answer Date Recorded Patient Health Questionnaire-2 Score 0 02/10/2023 Comments No Sex and Gender Information Value Date Recorded Sex Assigned at Female 11/14/2024 1:31 PM CONDEMNATION ENGINEER Legal Sex Female 7:06 PM CDT Gender Identity Female 11/14/2024 1:31 PM CONDEMNATION ENGINEER Sexual Orientation Not on file documented as of this encounter Plan of Treatment Upcoming Encounters Date Type Department Care Team (Late st Contact Info) Description 06/30/2025 9:45 AM CDT Office Visit [facility] [address] [place] [address] Abelino Suggs MD Three [facility], [address] [place] [address] 11/17/2025 1:40 PM CONDEMNATION ENGINEER Office Visit [facility] Family & Internal Medicine - [place] [address] [place] [address] Melanie Oliva FNP [address] [place] [address] documented as of this encounter Visit Diagnoses Not on filedocumented in this encounter Additional Health Concerns Assessment Noted Time PHQ-9 Depression Total Score: 0 06/08/20 9:14 AM CDT documented as of this encounter Care Teams Auto Parts Delivery Driver Relationship Specialty Start Date End Date Shira Alcocer MD PCP - General FAMILY PRACTICE 06/08/21 07/09/24 Marquez Ngo MD [address] [place] [address] PCP - General FAMILY PRACTICE 07/10/24 10/07/24 Melanie Oliva FNP [address] [place] [address] PCP - General Nurse Practitioner Family 10/08/24 Abelino Suggs MD [facility], [address] [place] [address] Physician CARDIOVASCULAR DISEASE 09/19/23 Pancho Young MD [facility], Suite [facility] [place] [address] Consulting Physician ORTHOPAEDIC SURGERY 09/19/23 documented as of this encounter
--- OUTSIDE RECORDS SUMMARY | 2025-06-21 08:54 | XMS_ITS | Encounter Summary ---
Author Organization [facility] Address [address] [place] [address] Care Team Providers Care Waste Picker Name Role Phone Shiar Alcocer MD Primary Care Provider [phone] Abelino Suggs MD Unavailable [phone] Pancho Young MD Unavailable Unavailable Tien VII, Marquez Allan MD Primary Care Prov ider Melanie Oliva Primary Care Provider [phone] Encounter Details Date Type Department Care Team (Late st Contact Info) Description 08/12/2021 MyChart Message Enc [facility] Family Medicine - [place] [address] [facility], [address] [place] [address] [place] [address] [address] [address] Appt at [facility] Social History Tobacco Use Types Packs/Day Years [...] Sex Assigned at Female 11/14/2024 1:31 PM POLICY DIRECTOR Legal Sex Female 7:06 PM CDT Gender Identity Female 11/14/2024 1:31 PM POLICY DIRECTOR Sexual Orientation Not on file COVID-19 Exposure Response Date Recorded In the last month, have you been in contact with someone who was confirmed or suspected to have Coronavirus / COVID-19? No / Unsure 07/29/2021 8:09 AM CDT documented as of this encounter Progress Notes * Shira Alcocer MD - 08/13/2021 8:35 AM CST Can you please check on heptaology referral and let pt know thanks CY DIRECTOR documented in this encounter Plan of Treatment Upcoming Encounters Date Type Department Care Team (Late st Contact Info) Description 06/30/2025 9:45 AM CDT Office Visit [facility] [address] [place] [address] Abelino Suggs MD [facility], [address] [place] [address] 11/17/2025 1:40 PM POLICY DIRECTOR Office Visit [facility] Family & Internal Medicine - [place] [address] [place] [address] Melanie Oliva FNP [address] [place] [address] documented as of this encounter Visit Diagnoses Not on filedocumented in this encounter Additional Health Concerns Assessment Noted Time PHQ-9 Depression Total Score: 0 06/08/20 21 9:14 AM CDT documented as of this encounter Care Teams Waste Picker Relationship Specialty Start Date End Date Shira Alcocer MD PCP - General FAMILY PRACTICE 06/08/21 07/09/24 Marquez Ngo MD [address] [place] [address], [facility] [address] [place] [address] PCP - General FAMILY PRACTICE 07/10/24 10/07/24 Melanie Oliva FNP [address] [place] [address] PCP - General Nurse Practitioner Family 10/08/24 Abelino Suggs MD [facility], Suite [facility] [place], [place] [address] Physician CARDIOVASCULAR DISEASE 09/19/23 Pancho Young MD [facility], [address] [place] [address] Consulting Physician ORTHOPAEDIC SURGERY 09/19/23 documented as of this encounter
--- OUTSIDE RECORDS SUMMARY | 2025-06-21 08:54 | XMS_ITS | Encounter Summary ---
Author Organization [facility] Address [facility] [place] [address] Care Team Providers Care Garnett Room Worker Name Role Phone Abelino Suggs MD Unavailable Pancho Young MD Unavailable Unavailable Melanie Oliva Primary Care Provider [phone] Encounter Details Date Type Department Care Team (Latest Contact Info) Description 05/22/2025 Results Follow-Up [facility] [place] [address] [address] Carly Garcia RN CTA CHEST, USE ECHOCARDIOGRAM Social History Tobacco Use Types Packs/Day Years Used Date Smoking Tobacco: Never Passive Smoke Exposure: Past Smokeless Tobacco: Never Comments:N/A Alcohol Use Standard Drinks/Week Comments Yes 2 (1 standard drink = 0.6 oz pur e alcohol) social PHQ-2 Answer Date Recorded Patient Health Questionnaire-2 Score 0 05/15/2025 Comments No Sex and Gender Information Value Date Recorded Sex Assigned at Female 11/14/2024 1:31 PM CHIEF PSYCHOLOGY Legal Sex Female 7:06 PM CDT Gender Identity Female 11/14/2024 1:31 PM CHIEF PSYCHOLOGY Sexual Orientation Not on file documented as of this encounter Plan of Treatment Upcoming Encounters Date Type Department Care Team (Late st Contact Info) Description 06/30/2025 9:45 AM CDT Office Visit [facility] [address] [place] [address] Abelino Suggs MD [facility], [address] [place] [address] 11/17/2025 1:40 PM CHIEF PSYCHOLOGY Office Visit [facility] Family & Internal Medicine - [place] [address] [place] [address] Melanie Oliva FNP [address] [place] [address] documented as of this encounter Visit Diagnoses Not on filedocumented in this encounter Additional Health Concerns Assessment Noted Time PHQ-9 Depression Total Score: 0 06/08/20 21 9:14 AM CDT documented as of this encounter Care Teams Garnett Room Worker Relationship Specialty Start Date End Date Melanie Oliva FNP [address] [place] [address] PCP - General Nurse Practitioner Family 10/08/24 Abelino Suggs MD [facility], [address] [place] [address] Physician CARDIOVASCULAR DISEASE 09/19/23 Pancho Young MD [facility], [address] [place] [address] Consulting Physician ORTHOPAEDIC SURGERY 09/19/23 documented as of this encounter
--- OUTSIDE RECORDS SUMMARY | 2025-06-21 08:54 | XMS_ITS | Encounter Summary ---
Author Organization [facility] Address [address] [place] [address] Phone Care Team Providers Care Assembler Musical Equipment Name Role Phone Shira Alcocer MD Primary Care Provider [phone] Derrick Varghese MD Unavailable [phone] Saroj Cornejo [facility] Unavailable Unavaila Talia Knowles RN Unavailable Unavailable Encounter Details Date Type Department Care Team (Late st Contact Info) Description 07/17/2024 Orders Only [facility] Scanning, Provider Social History Tobacco Use [...] when you are drinking? 5 or 6 07/25/202 3 Q3: How often do you have si x or more drinks on one occasion? Never 04/25/2023 Comments Unknown Sex and Gender Information Value Date Recorded Sex Assigned at Not on file Legal Sex Female 3:12 AM DIRECTOR OF FEDERAL SALES Gender Identity Not on file Sexual Orientation [...] on filedocumented in this encounter Care Teams Assembler Musical Equipment Relationship Specialty Start Date End Date Shira Alcocer MD [address] [address] PCP - General Family Practice 06/11/21 Derrick Varghese MD [address] [facility], [address] [address] PCP - Home Infusion Attending Internal Medicine 02/24/25 Saroj Cornejo, [facility] Pharmacist Pharmacy 03/04/25 Talia Reynolds, [facility] 03/06/25 documented as of this encounter
--- OUTSIDE RECORDS SUMMARY | 2025-06-21 08:54 | XMS_ITS | Encounter Summary ---
Author Organization [facility] Address [address] [place] [address] Care Team Providers Care Clinical Secretary Name Role Phone Shira Alcocer MD Primary Care Provider [phone] Abelino Suggs MD Unavailable [phone] Pancho Young MD Unavailable Unavailable Tien VII, Marquez Allan MD Primary Care Prov ider Melanie Oliva Primary Care Provider [phone] Encounter Details Date Type Department Care Team (Late st Contact Info) Description 03/06/2023 MyChart Message Enc [facility] Family Medicine - [place] [address] [facility], [address] [place] [address] [place] [address] [address] Blood work Social History Tobacco Use Types Packs/Day Years Used Date Smoking Tobacco: Never Passive Smoke Exposure: Past Smokeless Tobacco: Never Comments:N/A Alcohol Use Standard Drinks/Week Comments Yes 0 (1 standard drink = 0.6 oz pur e alcohol) social PHQ-2 Answer Date Recorded Patient Health Questionnaire-2 Score 0 02/10/2023 Comments No Sex and Gender Information Value Date Recorded Sex Assigned at Female 11/14/2024 1:31 PM GRAPE PICKER Legal Sex Female 7:06 PM CDT Gender Identity Female 11/14/2024 1:31 PM GRAPE PICKER Sexual Orientation Not on file COVID-19 Exposure Response Date Recorded In the last 10 days, have yo u been in contact with someone who was confirmed or suspected to have Coronavirus/COVID-19? No / Unsure 02/10/2023 11:11 AM CDT documented as of this encounter Plan of Treatment Upcoming Encounters Date Type Department Care Team (Late st Contact Info) Description 06/30/2025 9:45 AM CDT Office Visit [facility] [address] [place] [address] Abelino Suggs MD [facility], [address] [place] [address] 11/17/2025 1:40 PM GRAPE PICKER Office Visit [facility] Family & Internal Medicine [facility] [address] [place] [address] Melanie Oliva FNP [address] [place] [address] documented as of this encounter Visit Diagnoses Not on filedocumented in this encounter Additional Health Concerns Assessment Noted Time PHQ-9 Depression Total Score: 0 06/08/20 21 9:14 AM CDT documented as of this encounter Care Teams Clinical Secretary Relationship Specialty Start Date End Date Shira Alcocer MD PCP - General FAMILY PRACTICE 06/08/21 07/09/24 Marquez Ngo MD [address] [place] [address], [address] [address] PCP - General FAMILY PRACTICE 07/10/24 10/07/24 Melanie Oliva FNP [address] [place] [address] PCP - General Nurse Practitioner Family 10/08/24 Abelino Suggs MD [facility], [address] [place] [address] Physician CARDIOVASCULAR DISEASE 09/19/23 Pancho Young MD [facility], [address] [place] [address] Consulting Physician ORTHOPAEDIC SURGERY 09/19/23 documented as of this encounter
--- OUTSIDE RECORDS SUMMARY | 2025-06-21 08:54 | XMS_ITS | Encounter Summary ---
Author Organization [facility] Address [address] [place] [address] Care Team Providers Care Solar Energy Engineer Name Role Phone Abelino Suggs MD Unavailable [phone] Pancho Young MD Unavailable Unavailable Tien VII, Marquez Allan MD Primary Care Prov ider Melanie Oliva Primary Care Provider [phone] Encounter Details Date Type Department Care Team (Late st Contact Info) Description 07/26/2024 MyChart Message Enc [facility] Family Medicine - [place] [address] [facility], [address] [place] [address] [place] [address] [place] [address] Cough Social History Tobacco Use Types Packs/Day Years Used Date Smoking Tobacco: Never Passive Smoke Exposure: Past Smokeless Tobacco: Never Comments:N/A Alcohol Use Standard Drinks/Week Comments Yes 2 (1 standard drink = 0.6 oz pur e alcohol) social PHQ-2 Answer Date Recorded Patient Health Questionnaire-2 Score 0 02/07/2024 Comments No Sex and Gender Information Value Date Recorded Sex Assigned at Female 11/14/2024 1:31 PM PURCHASER Legal Sex Female 7:06 PM CDT Gender Identity Female 11/14/2024 1:31 PM PURCHASER Sexual Orientation Not on file documented as of this encounter Plan of Treatment Upcoming Encounters Date Type Department Care Team (Late st Contact Info) Description 06/30/2025 9:45 AM CDT Office Visit [facility] [address] [place] [address] Abelino Suggs MD [facility] [address] [place] [address] 11/17/2025 1:40 PM PURCHASER Office Visit [facility] Family & Internal Medicine - [place] [address] [place] [address] Melanie Oliva FNP [address] [place] [address] documented as of this encounter Visit Diagnoses Not on filedocumented in this encounter Additional Health Concerns Assessment Noted Time PHQ-9 Depression Total Score: 0 06/08/20 9:14 AM CDT documented as of this encounter Care Teams Solar Energy Engineer Relationship Specialty Start Date End Date Tien VII, Marquez Allan MD [address] [place] [address] PCP - General FAMILY PRACTICE 07/10/24 10/07/24 Melanie Oliva FNP [address] [place] [address] PCP - General Nurse Practitioner Family 10/08/24 [facility] MD [facility] [address] [place] [address] Physician CARDIOVASCULAR DISEASE 09/19/23 Pancho Young MD [facility] [address] [place] [address] Consulting Physician ORTHOPAEDIC SURGERY 09/19/23 documented as of this encounter
--- OUTSIDE RECORDS SUMMARY | 2025-06-21 08:54 | XMS_ITS | Encounter Summary ---
Author Organization [facility] Address [facility] [place] [address] Care Team Providers Care Program Medical Director Name Role Phone Clayton Bauer MD Primary Care Provider [phone] Abelino Suggs MD Unavailable [phone] Pancho Young MD Unavailable Unavailable Tien VII, Marquez Allan MD Primary Care Prov ider Melanie Oliva Primary Care Provider [phone] Reason for Visit * Reason Onset Date Comments Medication Problem 08/19/2021 wrong pharmac y Encounter Details Date Type Department Care Team (Late st Contact Info) Description 08/19/2021 MyChart Message Enc [facility] Family Medicine - [place] [address], [address] [place] [address] [place] [address] [place] [address] Medication refills Social History Tobacco Use Types Packs/Day Years [...] Sex Assigned at Female 11/14/2024 1:31 PM PATIENT REGISTRAR Legal Sex Female 7:06 PM CDT Gender Identity Female 11/14/2024 1:31 PM PATIENT REGISTRAR Sexual Orientation Not on file COVID-19 Exposure Response Date Recorded In the last month, have you been in contact with someone who was confirmed or suspected to have Coronavirus / COVID-19? No / Unsure 08/16/2021 7:12 PM PATIENT REGISTRAR documented as of this encounter Progress Notes * Torrie Ruth MA - 08/20/2021 12:04 PM CST Patient's prescriptions were sent to the wrong pharmacy. Please send them both to [facility]. cb ENT REGISTRAR * Loreto Gomez MA - 08/20/2021 6:55 AM CST Last office visit at this office: Last visit with CLAYTON BAUER in FAMILY PRACTICE was on: 06/08/2021 in [facility] Future appointment scheduled: No future appointments. ENT REGISTRAR documented in this encounter Plan of Treatment Upcoming Encounters Date Type Department Care Team (Late st Contact Info) Description 06/30/2025 9:45 AM CDT Office Visit [facility] [address] [place] [address] Abelino Suggs MD Three [facility]., [address] [place] [address] 11/17/2025 1:40 PM PATIENT REGISTRAR Office Visit [facility] Group Family & Internal Medicine - [place] [address] [place] [address] Melanie Oliva FNP [address] [place] [address] documented as of this encounter Visit Diagnoses Diagnosis Hyperlipidemia, unspecified hyperlipidemia type- Primary documented in this encounter Additional Health Concerns Assessment Noted Time PHQ-9 Depression Total Score: 0 06/08/20 9:14 AM CDT documented as of this encounter Care Teams Program Medical Director Relationship Specialty Start Date End Date Clayton Bauer MD PCP - General FAMILY PRACTICE 06/08/21 07/09/24 Marquez Ngo MD [address] [place] [address], [place] [address] PCP - General FAMILY PRACTICE 07/10/24 10/07/24 Melanie Oliva FNP [address] [place] [address] PCP - General Nurse Practitioner Family 10/08/24 Abelino Suggs MD [facility], [address] [place] [address] Physician CARDIOVASCULAR DISEASE 09/19/23 Pancho Young MD [facility], [address] [place] [address] Consulting Physician ORTHOPAEDIC SURGERY 09/19/23 documented as of this encounter
--- OUTSIDE RECORDS SUMMARY | 2025-06-21 08:54 | XMS_ITS | Encounter Summary ---
Author Organization [facility] Address [facility] [place] [address] Care Team Providers Care Erecting Engineer Name Role Phone JessicacarmelaSonali DO Primary Care Provider [phone] Shira Alcocer MD Primary Care Provider [phone] OchAbelino aguila MD Unavailable [phone] Pancho Young MD Unavailable Unavailable Tien VII, Marquez Allan MD Primary Care Prov ider Melanie Oliva Primary Care Provider [phone] Encounter Details Date Type Department Care Team (Late st Contact Info) Description 02/18/2020 Prep for Procedure [facility] Pre-Admission Testing [address] [place], [place] [id number] Ivana Betancur, DPCarlton [address] [place] [address] Social History Tobacco Use Types Packs/Day Years Used Date Smoking Tobacco: Never Smokeless Tobacco: Never Alcohol Use Standard Drinks/Week Comments Yes 0 (1 standard drink = 0.6 oz pur e alcohol) social Comments No Sex and Gender Information Value Date Recorded Sex Assigned at Female 11/14/2024 1:31 PM SECURE SOFTWARE ASSESSOR Legal Sex Female 7:06 PM CDT Gender Identity Female 11/14/2024 1:31 PM SECURE SOFTWARE ASSESSOR Sexual Orientation Not on file documented as of this encounter Plan of Treatment Upcoming Encounters Date Type Department Care Team (Late st Contact Info) Description 06/30/2025 9:45 AM CDT Office Visit [facility] [address] [place] [address] Abelino Suggs MD Three [facility], [address] [place] [address] 11/17/2025 1:40 PM SECURE SOFTWARE ASSESSOR Office Visit [facility] Medical Group Family & Internal Medicine - [place] [address] [place] [address] Melanie Oliva FNP [address] [place] [address] documented as of this encounter Visit Diagnoses Diagnosis Pre-op exam- Primary Preoperative examination, unspecified documented in this encounter Additional Health Concerns Infection Onset Date Last Indicated Resolved Time COVID-19 Rule Out 02/24/2020 02/24/2020 02/25/2020 3:25 AM CDT documented as of this encounter Care Teams Erecting Engineer Relationship Specialty Start Date End Date Sonali Sales DO [address] [place] [address] PCP - General FAMILY PRACTICE 02/18/20 06/07/21 Shira Alcocer MD [address] [place] [address] PCP - General FAMILY PRACTICE 06/08/21 07/09/24 Marquez Ngo MD [address] [place] [address], [facility] [address] [place] [address] PCP - General FAMILY PRACTICE 07/10/24 10/07/24 Melanie Oliva FNP [address] [place] [address] PCP - General Nurse Practitioner Family 10/08/24 Abelino Suggs MD [facility], [address] [place] [address] Physician CARDIOVASCULAR DISEASE 09/19/23 Pancho Young MD [facility], [address] [place] [address] Consulting Physician ORTHOPAEDIC SURGERY 09/19/23 documented as of this encounter
--- OUTSIDE RECORDS SUMMARY | 2025-06-21 08:54 | XMS_ITS | Clinical Summary ---
Author Organization [facility] Address [address] [place] [address] Care Team Providers Care Morning Babysitter Name Role Phone Abelino Glez MD Unavailable [phone] Pancho Young MD Unavailable Unavailable Melanie Oliva Primary Care Provider [phone] Allergies Active Allergy Reactions Criticality Noted Date Comments Cefaclor Hives,Unknown Medium 01/06/2014 Medications Cholecalciferol (VITAMIN D3) 50 MCG (1999 UT) Tab Take 1 tablet (50 mcg total) by mouth daily. Active Multiple Vitamins-Minerals (MULTIVITAMIN ADULT OR) Take 1 tablet by mouth daily. Active meloxicam 7.5 MG tablet Take 1 tablet (7.5 mg total) by mouth daily as needed for Pain. 2 Active diclofenac sodium (VOLTAREN) 1 % gel Apply 2 g topically 4 (four) times daily as needed (joint pain). 2 Active [place]ona-3 Fatty Acids (FISH OIL) 300 MG Cap Take 1 capsule by mouth daily. Active triamcinolone (KENALOG) 0.1 % cream Apply topically daily as needed (psoriatic arthritis). 2 Active prednisoLONE acetate (PRED FORTE) 1 % ophthalmic suspension Place 1 drop into the right eye 4 (four) times daily as needed (Uveitis). 3 Active mycophenolate EC (MYFORTIC) 360 MG tablet Take 1 tablet (360 mg total) by mouth 2 (two) times daily. 3 Active gabapentin (NEURONTIN) 300 MG capsule Take 1 capsule (300 mg total) by mouth daily. 3 Active Calcium Carbonate-Vit D-Min (CALCIUM 1200 OR) Take 1 tablet by mouth daily. Active acyclovir (ZOVIRAX) 5 % ointment Apply topically daily as needed (Cold sores). Active ketoconazole (NIZORAL) 2 % shampoo 4 Active REMICADE 100 MG injection Inject into the vein Once every eight weeks. 4 Active potassium chloride CR (KLOR-CON M20) 20 MEQ tabletIndications: Primary hypertension Take 1 tablet (20 mEq total) by mouth daily. 90 tablet 3 5 Active Telmisartan 80 MG TabIndications:Alexandra yoseph hypertension Take 1 tablet by mouth daily. 90 tablet 3 5 Active fluticasone propionate (FLONASE) 50 MCG/ACT nasal sprayIndications:N on-seasonal allergic rhinitis, unspecified trigger 1 spray by Nasal route 2 (two) times daily as needed for Rhinitis. 16 g 3 5 Active amLODIPine (NORVASC) 5 MG tabletIndications: Hyperlipidemia, unspecified hyperlipidemia type Take 1 tablet (5 mg total) by mouth daily. 90 tablet 1 5 Active simvastatin (ZOCOR) 20 MG tabletIndications: Mixed hyperlipidemia Take 1 tablet (20 mg total) by mouth nightly at bedtime. 90 tablet 3 5 Active estradiol (ESTRACE) 0.1 MG/GM vaginal creamIndications:V aginal dryness, menopausal APPLY 2 GRAMS VAGINALLY TWICE WEEKLY 85 g 3 5 Active hydroCHLOROthiazid e (HYDRODIURIL) 25 MG tabletIndications: Primary hypertension Take 1 tablet (25 mg total) by mouth every morning. 90 tablet 5 Active B Complex Vitamins Cap Take 1 capsule by mouth daily. Active diphenhydrAMINE (BENADRYL ALLERGY) 25 MG capsule Take 1 capsule (25 mg total) by mouth Once every eight weeks. 5 12/06/19 26 Active escitalopram (LEXAPRO) 10 MG tabletIndications: Anxiety Take 1 tablet (10 mg total) by mouth daily. 90 tablet 3 Active desloratadine (CLARINEX) 5 MG Tab tabletIndications: Environmental and seasonal allergies Take 1 tablet (5 mg total) by mouth daily. 90 tablet 3 Active Active Problems Problem Noted Date Diagnosed Date B12 deficiency 05/15/2025 Dilated aortic root 11/14/2024 Anxiety 11/14/2024 Vitamin D deficiency, unspecified 11/14/2024 Osteopenia 02/08/2022 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 04/23/2017 Spondyloarthropathy 04/21/2017 Psoriatic arthritis ([facility]) 03/29/2016 Rheumatoid arthritis ([facility]) HLD (hyperlipidemia) Hypertension Resolved Problems Problem Noted Date Diagnosed Date Resolved Date Elevated liver enzymes 09/22/202102/10 Obesity (BMI 30.0-34.9) 04/18/201911/02 Diffuse cystic mastopathy 12/08/2014 Encounters Date Type Department Care Team Description 05/22/2025 Results Follow-Up [facility] [address] [place] [address] Carly Garcia RN CTA CHEST, USE ECHOCARDIOGRAM 05/21/2025 10:24 AM CDT - 05/21/2025 11:59 PM CDT Hospital Encounter [facility] [address] [address] Abelino Glez MD Discharge Disposition: Home or Self Care (Routine Discharge) 05/21/2025 Travel 05/15/2025 1:00 PM CDT Office Visit [facility] Family & Internal Medicine - [address] [phone] Melanie Oliva FNP Hypertension 05/15/2025 Travel from Last 3 Months Immunizations Immunization Administration Dates Next Due Abrysvo Respiratory Syncytia l Virus (RSV) 0.5 mL, PF 06/14/2023 Fluzone High Dose (IIV, triv alent, 0.5mL) 07/02/2024 Fluzone High Dose - >Age 65 (Prefilled Syringe) 06/06/2023,06/04/2022 Influenza (Generic) 07/09/2019,07/11/2016 Influenza Adult (Generic) 05/18/2021,,07/09/2018,2015 PFIZER COVID-19 (12+) MRNA, LNP-S, PF, RAFAEL-SUCROSE, 30 MCG/0.3 ML (COMIRNATY) 05/15/2025 PFIZER COVID-19 (RON CAP), MRNA, LNP-S, PF, 30 MCG/0.3 ML RAFAEL-SUCROSE, IM 05/02/2022 PFIZER COVID-19 (ORIGINAL FORMULATION, PURPLE CAP) mRNA, LNP-S, PF, 30 MCG/0.3 ML DOSE 05/18/2021,11/30/2020,11/09/2020 Pneumococcal (Pneumovax 23) 08/11/2020 Pneumococcal (Prevnar 20) 11/14/2024 Tdap (Generic) 12/13/2023 Family History Medical History Relation Comments Heart Disease Brother 1 Hyperlipidemia Brother 3 Multiple Sclerosis Daughter 1 Alzheimers Father Depression Father Hyperlipidemia Father Arthritis Maternal Grandmother Dementia Mother Heart Disease Mother Hyperlipidemia Mother Heart Disease Sister Relation Status Comments Brother 1 Alive Brother 2 Alive Brother 3 Alive Daughter 1 Alive Daughter 2 Alive Father (Age 82) alzheimer Maternal Grandfather (Age 40s) mi Maternal Grandmother Alive Mother (Age 85) heart disease Paternal Grandfather (Age 40) MD Sister Alive Social History Tobacco Use Types Packs/Day Years Used Date Smoking Tobacco: Never Passive Smoke Exposure: Past Smokeless Tobacco: Never Tobacco Cessation:Counseling Given: Not Answered Comments:N/A Alcohol Use Standard Drinks/Week Comments Yes 2 (1 standard drink = 0.6 oz pur e alcohol) social PHQ-2 Answer Date Recorded Patient Health Questionnaire-2 Score 0 05/15/2025 Comments No Sex and Gender Information Value Date Recorded Sex Assigned at Female 11/14/2024 1:31 PM CLINIC ASSISTANT Legal Sex Female 7:06 PM CDT Gender Identity Female 11/14/2024 1:31 PM CLINIC ASSISTANT Sexual Orientation Not on file Last Filed Vital Signs Vital Sign Reading Time Taken Comments Blood Pressure 110/66 05/15/2025 1:08 PM CDT Pulse 75 05/15/2025 1:08 PM CDT Temperature 36.7 C (98.1 F) 05/15/2025 1:08 PM CDT Respiratory Rate 16 05/15/2025 1:08 PM CDT Oxygen Saturation 97% 05/15/2025 1:08 PM CDT Inhaled Oxygen Concentration - - Weight 67 kg (147 lb 9.6 oz) 05/15/2025 1:08 PM CDT Height 154.9 cm (5' 1) 05/15/2025 1:08 PM CDT Body Mass Index 27.89 05/15/2025 1:08 PM CDT Plan of Treatment Upcoming Encounters Date Type Department Care Team (Late st Contact Info) Description 06/30/2025 9:45 AM CDT Office Visit [facility] [address] [place] [address] Abelino Glez MD [facility], [address] [place] [address] 11/17/2025 1:40 PM CLINIC ASSISTANT Office Visit [facility] Family & Internal Medicine - [place] [address] [place] [phone] Melanie Oliva, [facility] [address] [place] [address] Health Maintenance Due Date Last Done Comments Annual Medicare Wellness Visit 09/20/2024 09/19/2023 Mammogram Screening 05/01/2025 05/01/2023, 04/27/2022, 12/19/2016, Additional history exists COVID-19 Vaccine ( season) 2025 05/15/2025, 07/02/2024, 06/06/2023, Additional history exists Zoster Vaccines (1 of 2) 05/15/2026 Pos tponed from 1973 (No Insurance Coverage) Colorectal Cancer Screening Colonoscopy (10 Years) 12/06/2027 12/05/2017 DTaP, Tdap and Td Vaccines (2 - Td or Tdap) 12/12/2033 12/13/2023 Hepatitis C Completed 09/22/2021, 07/07/2021 Dexa Scan (General) Completed 05/01/2023, RSV Immunization or 60+ Years Completed 06/14/2023 Pneumococcal Vaccine: 50+ Years Completed 11/14/2024, 08/11/2020 PHQ-2 (Physician [place]) Completed 05/15/2025 Meningococcal B Vaccine Aged Out No l onger eligible based on patient's age to complete this topic Meningococcal Vaccine Aged Out No eric stone eligible based on patient's age to complete this topic RSV Immunizations Under 20 Months Aged Out No longer eligible based on patient's age to complete this topic Medical Devices Implanted Type Area Carroting Machine Operator Device Identifier Shelf Expiration Date Model / Serial / Lot 3.0mm X 16mm Asnis Screw Implanted:Qty: 2 on 02/26/2020 by Ivana [facility]ancur DPM at [facility] Screw Right: Toe [employer] [id number] / / 2.0mm X 14mm Asnis Screw Implanted:Qty: 1 on 02/26/2020 by Ivana [facility]ancur DPM at [facility] Screw Right: Toe [employer] [id number] / / Wire Fixation Fer Stainless Steel L9 In Od.045 In 2 Tr - [id number] Implanted:Qty: 2 on 02/26/2020 by Ivana Betancur DPM at [facility] Right: Toe [employer] [id number] / / Description:IMPLANTED INTO R IGHT 2ND AND 3RD TOE RIGHT FOOT Procedures Procedure Name Priority Date/Time Associated Diagnosis Comments USE ECHOCARDIOGRAM Routine 05/21/2025 11 :43 AM CDT Moderate aortic regurgitation Moderate tricuspid regurgitation CTA CHEST Routine 05/21/2025 10:47 AM CDT Dilated aortic root BONE DENSITY GENERIC (SCAN ORDER) 05/01/2023 MAMMOGRAM GENERIC (SCAN ORDER) 05/01/2023 HEPATITIS PANEL,ACUTE Routine 07/07/2021 9:15 AM CDT Elevated liver function tests Healthcare maintenance Elevated liver enzymes Abnormal results of liver function studies COLONOSCOPY GENERIC (SCAN ORDER) 12/05/2017 from Last 3 Months or Most Recently Relevant to Health Maintenance Results * USE ECHOCARDIOGRAM (05/21/2025 11:43 AM CDT) Anatomical Region Laterality Modality Cardiac Echocardiogram 05/21/2025 11:0 2 AM CDT Narrative 05/23/2025 3:13 PM CDT Echocardiography Report Pat.Name: NIGHAT CAMARGO Pat.ID: [id number] St.Date: 05/21/2025 Exam Time: 11:02:00 AM Study Type:ECHO WITH CARDIAC DOPPLER COMP Height: 61 in Weight: 147 lb BSA: 1.66 m2 Age: 5 1955,70Y Sex: F BP: 118/76 HR: 63 bpm Sonogrphr: Monique Jaramillo Pat. Stat.:Outpatient Reason for Study:Aortic insufficiency Procedures: 2D, M-mode, Doppler, Color Flow, The study quality is technically adequate. Race: W ++++++++++++++++++++++++++++++++++++ SUMMARY: ++++++++++++++++++++++++++++++++++++ The left ventricular size is normal. The left ventricular systolic function is normal. Estimated left ventricular ejection fraction is 60-65%. Mild concentric left ventricular hypertrophy. Left ventricular diastolic function is abnormal (grade 1 - impaired relaxation). The right ventricular size is normal. Right ventricular systolic function is normal. The left atrial size is mildly enlarged. Aortic root is mildly dilated. The aortic root measures 4.0 cm. Moderate aortic regurgitation with 2 jets. Mild to moderate mitral regurgitation. Moderate tricuspid regurgitation. ++++++++++++++++++++++++++++++++++++ FINDINGS: ++++++++++++++++++++++++++++++++++++ LV: The left ventricular size is normal. The left ventricular systolic function is normal. Estimated left ventricular ejection fraction is 60-65%. Mild concentric left ventricular hypertrophy. Left ventricular diastolic function is abnormal (grade 1 - impaired relaxation). WM: Wall motion appears normal in all segments. RV: The right ventricular size is normal. Right ventricular systolic function is normal. IVS: No evidence of ventricular septal defect. LA: The left atrial size is mildly enlarged. The left atrial volume is mildly increased (34- 41ml/M2). RA: Right atrial size is normal. IAS: Atrial septum appears intact. TERRI: No evidence of pericardial effusion. AO: Aortic root is mildly dilated. The aortic root measures 4.0 cm. PA: Estimated right atrial pressure of 3 mmHg. SVn: Inferior vena cava is normal. Inferior vena cava shows >50% collapse with respiration consistent with normal right atrial pressure. AV: The aortic valve is trileaflet. No evidence of aortic valve stenosis. Moderate aortic regurgitation with 2 jets. MV: Mild to moderate mitral regurgitation. No evidence of mitral valve stenosis. PV: Trace pulmonic regurgitation. No evidence of pulmonic valve stenosis. TV: Moderate tricuspid regurgitation. Right ventricular systolic pressure is 20-30 mmHg. No evidence of tricuspid valve stenosis. ++++++++++++++++++++++++++++++++++++ MEASUREMENTS: ++++++++++++++++++++++++++++++++++++ DOPPLER LVOT LVOTpkPG 3 mmHg LVOTmnPG 2 mmHg LVOTpkVel 89.2 cm/s (70-110) LVOT SV 63 ml LVOT TVI 20 cm LVOT CO 60 ml/s Pulmonary Veins PVnpkVeld 35.5 cm/s PVnVs/Vd 1.5 PVnpkVels 54.2 cm/s PVn A Dur 187 msec AV Forward Flow AV TVI 33.6 cm AV pkPG 7 mmHg AV pkVel 130 cm/s (100-170)+ Area (TVI) 1.87 cm2 (3-5)* AV mnPG 4 mmHg Area (Addison) 2.15 cm2 (3-5)* AV Regurg Flow AV pkVel 427 cm/s AV P1/2t 701 msec AV pkPG 73 mmHg MV Forward Flow MV DeTm 183 msec MV pkE 71.6 cm/s (60-130) MV E/A 1.1 MV pkA 67 cm/s PV Forward Flow PV pkVel 81 cm/s (60-90)+ PV AC 120 msec PV pkPG 3 mmHg PV Regurg Flow PV pkVel 91.4 cm/s TV Regurg Flow TV pkPG 27 mmHg TV pkVel 258 cm/s (30-70)* TV Forward Flow TV pkE 42.6 cm/s Lat E' Lat e 8.38 cm/s Lat E/E' Lat E/e 8.5 Med E' Med e 7.07 cm/s Med E/E' Med E/e 10.1 Aortic Valve Aortic Valve Ar 1.13 Aortic Valve Ve 0.69 PV Antegrade Flow Acceleration Sl 490 cm/s2 PV Regurgitant Flow Peak Gradient ( 3 mmHg Right Atrium Francis's Disk 20 Right Ventricle Right Ventricle 11.5 cm/s 2D Left Ventricle LVIDd 3.7 cm (3.6-5.2) LV ESV 29.6 ml LVIDs 2.5 cm (2.3-3.9) LV ESV 37 ml LngAxd 7.47 cm LVESV BP 34.4 ml LngAxd 7.05 cm LV EF 64.4 % LV EDV 83.3 ml LV EF 54.8 % LV EDV 81.8 ml LV EF BP 59.5 % LVEDV BP 84.9 ml LV SV 53.6 ml LngAxs 6.44 cm LV SV 44.9 ml LngAxs 5.89 cm LV SV BP 50.5 ml LVPW LVPWd 1 cm Right Ventricle RVIDd 3.9 cm (2.6-4.3) Right Ventricle 24 mm Right Ventricle 32 mm Right and Left 1.05 Major [place] 65 mm Ventricular Septum IVSd 1.2 cm Left Atrium LA VOLBP 46.4 ml Aorta Ao Rtd 3.9 cm LVOT LVOT 2 cm LVOTArea 3.14 cm2 Ratios IVS LA Biplane LAVol I BP 28 ml/m2 Right Atrium Minor [place] 25 mm RA Single Plane Right Atrium MO 9.05 mm Right Atrium Sy 21.1 ml Right Atrium Sy 55.3 mm Right Atrium Sy 12.7 ml/m2 Right Atrium Sy 11.9 cm2 MMODE TA Tricuspid Annul 20.9 mm <Electronic Signature> 05/23/2025 03:13 PM Abelino Glez M.D. Procedure Note Abelino Glez MD - 05/23/2025 Echocardiography Report Pat.Name: NIGHAT CAMARGO Pat.ID: [id number] .Date: 05/21/2025 Exam Time: 11:02:00 AM Study Type:ECHO WITH CARDIAC DOPPLER COMP Height: 61 in Weight: 147 lb BSA: 1.66 m2 Age: 5 1955,70Y Sex: F BP: 118/76 HR: 63 bpm Sonogrphr: Monique Jaramillo Pat. Stat.:Outpatient Reason for Study:Aortic insufficiency Procedures: 2D, M-mode, Doppler, Color Flow, The study quality is technically adequate. Race: W ++++++++++++++++++++++++++++++++++++ SUMMARY: ++++++++++++++++++++++++++++++++++++ The left ventricular size is normal. The left ventricular systolic function is normal. Estimated left ventricular ejection fraction is 60-65%. Mild concentric left ventricular hypertrophy. Left ventricular diastolic function is abnormal (grade 1 - impaired relaxation). The right ventricular size is normal. Right ventricular systolic function is normal. The left atrial size is mildly enlarged. Aortic root is mildly dilated. The aortic root measures 4.0 cm. Moderate aortic regurgitation with 2 jets. Mild to moderate mitral regurgitation. Moderate tricuspid regurgitation. ++++++++++++++++++++++++++++++++++++ FINDINGS: ++++++++++++++++++++++++++++++++++++ LV: The left ventricular size is normal. The left ventricular systolic function is normal. Estimated left ventricular ejection fraction is 60-65%. Mild concentric left ventricular hypertrophy. Left ventricular diastolic function is abnormal (grade 1 - impaired relaxation). WM: Wall motion appears normal in all segments. RV: The right ventricular size is normal. Right ventricular systolic function is normal. IVS: No evidence of ventricular septal defect. LA: The left atrial size is mildly enlarged. The left atrial volume is mildly increased (34- 41ml/M2). RA: Right atrial size is normal. IAS: Atrial septum appears intact. TERRI: No evidence of pericardial effusion. AO: Aortic root is mildly dilated. The aortic root measures 4.0 cm. PA: Estimated right atrial pressure of 3 mmHg. SVn: Inferior vena cava is normal. Inferior vena cava shows >50% collapse with respiration consistent with normal right atrial pressure. AV: The aortic valve is trileaflet. No evidence of aortic valve stenosis. Moderate aortic regurgitation with 2 jets. MV: Mild to moderate mitral regurgitation. No evidence of mitral valve stenosis. PV: Trace pulmonic regurgitation. No evidence of pulmonic valve stenosis. TV: Moderate tricuspid regurgitation. Right ventricular systolic pressure is 20-30 mmHg. No evidence of tricuspid valve stenosis. ++++++++++++++++++++++++++++++++++++ MEASUREMENTS: ++++++++++++++++++++++++++++++++++++ DOPPLER LVOT LVOTpkPG 3 mmHg LVOTmnPG 2 mmHg LVOTpkVel 89.2 cm/s (70-110) LVOT SV 63 ml LVOT TVI 20 cm LVOT CO 60 ml/s Pulmonary Veins PVnpkVeld 35.5 cm/s PVnVs/Vd 1.5 PVnpkVels 54.2 cm/s PVn A Dur 187 msec AV Forward Flow AV TVI 33.6 cm AV pkPG 7 mmHg AV pkVel 130 cm/s (100-170)+ Area (TVI) 1.87 cm2 (3-5)* AV mnPG 4 mmHg Area (Addison) 2.15 cm2 (3-5)* AV Regurg Flow AV pkVel 427 cm/s AV P1/2t 701 msec AV pkPG 73 mmHg MV Forward Flow MV DeTm 183 msec MV pkE 71.6 cm/s (60-130) MV E/A 1.1 MV pkA 67 cm/s PV Forward Flow PV pkVel 81 cm/s (60-90)+ PV AC 120 msec PV pkPG 3 mmHg PV Regurg Flow PV pkVel 91.4 cm/s TV Regurg Flow TV pkPG 27 mmHg TV pkVel 258 cm/s (30-70)* TV Forward Flow TV pkE 42.6 cm/s Lat E' Lat e 8.38 cm/s Lat E/E' Lat E/e 8.5 Med E' Med e 7.07 cm/s Med E/E' Med E/e 10.1 Aortic Valve Aortic Valve Ar 1.13 Aortic Valve Ve 0.69 PV Antegrade Flow Acceleration Sl 490 cm/s2 PV Regurgitant Flow Peak Gradient ( 3 mmHg Right Atrium Francis's Disk 20 Right Ventricle Right Ventricle 11.5 cm/s 2D Left Ventricle LVIDd 3.7 cm (3.6-5.2) LV ESV 29.6 ml LVIDs 2.5 cm (2.3-3.9) LV ESV 37 ml LngAxd 7.47 cm LVESV BP 34.4 ml LngAxd 7.05 cm LV EF 64.4 % LV EDV 83.3 ml LV EF 54.8 % LV EDV 81.8 ml LV EF BP 59.5 % LVEDV BP 84.9 ml LV SV 53.6 ml LngAxs 6.44 cm LV SV 44.9 ml LngAxs 5.89 cm LV SV BP 50.5 ml LVPW LVPWd 1 cm Right Ventricle RVIDd 3.9 cm (2.6-4.3) Right Ventricle 24 mm Right Ventricle 32 mm Right and Left 1.05 Major [place] 65 mm Ventricular Septum IVSd 1.2 cm Left Atrium LA VOLBP 46.4 ml Aorta Ao Rtd 3.9 cm LVOT LVOT 2 cm LVOTArea 3.14 cm2 Ratios IVS LA Biplane LAVol I BP 28 ml/m2 Right Atrium Minor [place] 25 mm RA Single Plane Right Atrium MO 9.05 mm Right Atrium Sy 21.1 ml Right Atrium Sy 55.3 mm Right Atrium Sy 12.7 ml/m2 Right Atrium Sy 11.9 cm2 MMODE TA Tricuspid Annul 20.9 mm <Electronic Signature> 05/23/2025 03:13 PM Abelino Glez M.D. us Abelino Glez MD ECHO Final Res ult * CTA CHEST (05/21/2025 10:47 AM CDT) Anatomical Region Laterality Modality Chest Computed Tomogra phy 05/22/2025 2:59 AM CDT Impressions 05/22/2025 3:07 AM CDT IMPRESSION: 1. CT angiography the chest demonstrates ectasia of the mid ascending thoracic aorta measuring up to 3.8 cm. There is dilation of the sinus of Valsalva measuring up to 4.4 cm. No thoracic aortic dissection or intramural hematoma. Continued attention on follow-up is recommended to ensure stability. 2. No acute abnormality seen within the chest. 3. Moderate coronary calcific atherosclerosis. Ordered By: ABELINO GLEZ Interpreted By: Bruno Feng MD, 05/22/2025 2:59 AM Narrative 05/22/2025 3:07 AM CDT [address] [address] PROCEDURE:CTA CHEST HISTORY: Dilated aortic root. TECHNIQUE: Helical CT scans of the chest were obtained before and following the administration of non-ionic iodinated intravenous contrast (Isovue-370, 80 mL). The post contrast sequence was obtained using an angiography protocol. Routine transaxial and post-processed (sagittal and coronal MPR) reformations of the acquired data sets were obtained. Standard 3-D (MIP) reformations of the acquired data sets were also obtained. A dose lowering technique was used for this procedure, which may include, but is not limited to, dose reduction technique, automated exposure control, the use of iterative reconstruction, and ALARA (As Low As Reasonably Achievable) / Image Gently techniques. COMPARISON: PA and lateral chest radiograph, 07/17/2024. FINDINGS CT ANGIOGRAPHY CHEST: Pre-contrast: The precontrast images show no intramural hematoma or intimal calcific displacement. Post-contrast: Vasculature: AORTA A left-sided arch is present, with three branches and conventional branching anatomy. The great vessel origins are widely patent. No thoracic aortic dissection. The following orthogonal measurements of the thoracic aorta were obtained: Sinus of Valsalva: 4.4 cm Sino-tubular junction: 3.5 cm Mid ascending aorta: 3.8 cm Proximal aortic arch: 3.4 cm Distal aortic arch: 2.6 cm Lower descending thoracic aorta: 2.5 cm The aforementioned represents dilation of the sinuses of Valsalva with a maximal measurement of 4.4 cm. There is ectasia of the mid ascending aorta with a maximal measurement of 3.8 cm. *Measurement References: Thoracic Aorta: Ectatic = 3 - 4cm, Dilated = 4 - 5cm, Aneurysmal = >5cm Sinus of Valsalva: Ectatic = 3.2 - 4.2cm, Dilated = 4.2 - 5.2cm, Aneurysmal= >5.2cm PULMONARY ARTERY The pulmonary artery is normal in size and appearance. The main pulmonary artery measures 2.5 cm. Support devices: None. Lower cervical region: Unremarkable. Lymph nodes: There is no thoracic adenopathy. Pleural spaces/diaphragm:There is no pleural effusion. Heart and great vessels:The heart is normal in size. The main pulmonary artery is normal in caliber. There is moderate atherosclerotic calcification in the coronary arteries. Lungs: The trachea and central airways are clear normal in caliber. There is bilateral dependent atelectasis. No focal consolidation. No suspicious pulmonary nodules identified. Upper GI tract: The esophagus is grossly unremarkable. Body wall:Degenerative changes are seen in the thoracic spine. Upper abdomen: Gallbladder mural calcification vs. cholelithiasis. The visualized portion of the upper abdomen is otherwise unremarkable. Barrett: (S/I) = series number / image number Procedure Note Bruno Feng MD - 05/22/[address] [address] PROCEDURE:CTA CHEST HISTORY: Dilated aortic root. TECHNIQUE: Helical CT scans of the chest were obtained before andfollowing the administration of non-ionic iodinated intravenous contrast(Isovue-370, 80 mL). The post contrast sequence was obtained using anangiography protocol. Routine transaxial and post-processed (sagittal andcoronal MPR) reformations of the acquired data sets were obtained.Standard 3-D (MIP) reformations of the acquired data sets were alsoobtained. A dose lowering technique was used for this procedure, which may include,but is not limited to, dose reduction technique, automated exposurecontrol, the use of iterative reconstruction, and ALARA (As Low AsReasonably Achievable) / Image Gently techniques. COMPARISON: PA and lateral chest radiograph, 07/17/2024. FINDINGS CT ANGIOGRAPHY CHEST: Pre-contrast: The precontrast images show no intramural hematoma orintimal calcific displacement. Post-contrast: Vasculature: AORTA A left-sided arch is present, with three branches and conventionalbranching anatomy. The great vessel origins are widely patent. Nothoracic aortic dissection. The following orthogonal measurements of the thoracic aorta wereobtained: Sinus of Valsalva: 4.4 cm Sino-tubular junction: 3.5 cm Mid ascending aorta: 3.8 cm Proximal aortic arch: 3.4 cm Distal aortic arch: 2.6 cm Lower descending thoracic aorta: 2.5 cm The aforementioned represents dilation of the sinuses of Valsalva with amaximal measurement of 4.4 cm. There is ectasia of the mid ascending aortawith a maximal measurement of 3.8 cm. *Measurement References: Thoracic Aorta: Ectatic = 3 - 4cm, Dilated = 4 - 5cm, Aneurysmal = >5cm Sinus of Valsalva: Ectatic = 3.2 - 4.2cm, Dilated = 4.2 - 5.2cm, Aneurysmal=>5.2cm PULMONARY ARTERY The pulmonary artery is normal in size and appearance. The main pulmonaryartery measures 2.5 cm. Support devices: None. Lower cervical region: Unremarkable. Lymph nodes: There is no thoracic adenopathy. Pleural spaces/diaphragm:There is no pleural effusion. Heart and great vessels:The heart is normal in size. The main pulmonaryartery is normal in caliber. There is moderate atheroscleroticcalcification in the coronary arteries. Lungs: The trachea and central airways are clear normal in caliber. Thereis bilateral dependent atelectasis. No focal consolidation. No suspiciouspulmonary nodules identified. Upper GI tract: The esophagus is grossly unremarkable. Body wall:Degenerative changes are seen in the thoracic spine. Upper abdomen: Gallbladder mural calcification vs. cholelithiasis. Thevisualized portion of the upper abdomen is otherwise unremarkable. Barrett: (S/I) = series number / image number IMPRESSION: 1. CT angiography the chest demonstrates ectasia of the mid ascendingthoracic aorta measuring up to 3.8 cm. There is dilation of the sinus ofValsalva measuring up to 4.4 cm. No thoracic aortic dissection orintramural hematoma. Continued attention on follow-up is recommended toensure stability. 2. No acute abnormality seen within the chest. 3. Moderate coronary calcific atherosclerosis. Ordered By: ABELINO GLEZ Interpreted By: Bruno Feng MD, 05/22/2025 2:59 AM Abelino Glez MD CT Final Res ult * BONE DENSITY GENERIC (05/01/2023) Anatomical Region Laterality Modality Other 05/01/2023 [facility] Scanned SCANNING Final Resu lt * MAMMOGRAM GENERIC (05/01/2023) Anatomical Region Laterality Modality Other 05/01/2023 [facility] Scanned SCANNING Final Resu lt * HEPATITIS PANEL,ACUTE (07/07/2021 9:15 AM CDT) HAV IGM NON-REACTI VE NON-REACT EFRA [facility] Comment: For additional information, please refer to http://education.Smartaxi/faq/YGP895 (This link is being provided for informational/ educational purposes only.) HEPATITIS B SURFACE AG NON-REACTI VE NON-REACT EFRA [facility] HEP B CORE IGM NON-REACTI VE NON-REACT EFRA [facility] HEPATITIS C AB NON-REACTI VE NON-REACT EFRA [facility] SIGNAL TO CUTOFF 0.02 <[address] [facility] Comment: HCV antibody was non-reactive. There is no laboratory evidence of HCV infection. In most cases, no further action is required. However, if recent HCV exposure is suspected, a test for HCV RNA (test code 87958) is suggested. For additional information please refer to http://education.Smartaxi/faq/VOT57v7 (This link is being provided for informational/ educational purposes only.) 07/07/2021 9:1 5 AM CDT 07/07/2021 9:16 AM CDT Narrative [facility] - 07/08/2021 8:53 AM CDT FASTING:YES FASTING: YES us Shira Alcocer MD LABORATORY Final Result [facility] [address] [place] [address] * COLONOSCOPY GENERIC (12/05/2017) 12/05/2017 Narrative 12/05/2017 Ordered by an unspecified provider. us Documents Scanned SCANNING Final Result from Last 3 Months or Most Recently Relevant to Health [place] [address] [facility] Care Teams Morning Babysitter Relationship Specialty Start Date End Date Melanie Oliva FNP [address] [place] [address] PCP - General Nurse Practitioner Family 10/08/24 Abelino Glez MD [facility], [address] [place] [address] Physician CARDIOVASCULAR DISEASE 09/19/23 Pancho Young MD [facility], [address] [place] [address] Consulting Physician ORTHOPAEDIC SURGERY 09/19/23
--- OUTSIDE RECORDS SUMMARY | 2025-06-21 08:54 | XMS_ITS | Clinical Summary ---
Author Organization [facility] Address [address] [place] [address] Phone Care Team Providers Care Ground Water Pump Installer Name Role Phone Moris Duncan MD Primary Care Provider [phone] Allergies Active Allergy Reactions Criticality Noted Date [...] MD Referring Provider: Deborah Quiroz MD [address] [facility] [address] [place] [address] Other: Problem Noted Date Diagnosed Date Diffuse [...] exists OSTEOPOROSIS SCREENING 2019 INFLUENZA VACCINE (#1) 2025 RSV VACCINE (60+ or ) (1 - [...] Recently Relevant to Health Maintenance Care Teams Ground Water Pump Installer Relationship Specialty Start Date End Date Moris Duncan MD [address] [place] [address] PCP - General Family Practice 01/06/14
--- OUTSIDE RECORDS SUMMARY | 2025-06-21 08:55 | XMS_ITS | Patient Health Record ---
Author Organization [facility] Address [address] [place], [place] [address] Care Team Providers Care Director Of Financial Reporting Name Role Phone HARPREET TARIQ Unavailable [phone] Shira Alcocer Unavailable Unavailable JOSE FITZPATRICK Unavailable [phone] Allergies Allergen (clinical drug ingredient) Drug/Non Drug Allergy documented on EMR Reaction Allergy Type Onset Date Status cefaclor Ceclor (uncoded) Unknown Allergy 10/23/2019 ac tive Reason For Referral No Information Vital Signs Height-cm 154.94 cm 05/22/2025 Weight-kg 76.66 kg 05/22/2025 Height 61.00 in 05/22/2025 Weight 169 lbs 05/22/2025 BMI 31.93 kg/m2 05/22/2025 Encounters Encounter Location Date Provider Diagnosis [facility] [address] [place], [place] [id number] 05/22/2025 JOSE FITZPATRICK Lesion of plantar nerve, [...] [facility] [address] [place], [place] [id number] 11/28/2024 HARPREET TARIQ Metatarsalgia of right foot M77.41 ; 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 ; Other specified rheumatoid arthritis, right ankle and foot M06.871 ; Other specified rheumatoid arthritis, left ankle and foot M06.872 ; Hammer toe of right foot M20.41 ; Pain in right foot M79.671 and Left foot pain M79.672 [facility] [address] [place] [id number] 12/12/2024 HARPREET TARIQ Lesion of plantar nerve, [...] 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) 05/22/2025 Lesion of plantar nerve, 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) 12/12/2024 Metatarsalgia of right foot (ICD-10 - M77.41) 05/22/2025 Metatarsalgia of right foot (ICD-10 - M77.41) 12/12/2024 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) 05/22/2025 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) 11/28/2024 Other specified rheumatoid arthritis, right ankle and foot (ICD-10 - M06.871) 11/28/2024 Other specified rheumatoid arthritis, left ankle and foot (ICD-10 - M06.872) 12/12/2024 Other specified rheumatoid arthritis, right ankle and foot (ICD-10 - M06.871) 05/22/2025 Other specified rheumatoid arthritis, right ankle and foot (ICD-10 - M06.871) 05/22/2025 Other specified rheumatoid arthritis, left ankle and foot (ICD-10 - M06.872) 11/28/2024 Hammer toe of right foot (ICD-10 - M20.41) 12/12/2024 Other specified rheumatoid arthritis, left ankle and foot (ICD-10 - M06.872) 11/28/2024 Pain in right foot (ICD-10 - M79.671) 12/12/2024 Hammer toe of right foot (ICD-10 - M20.41) 05/22/2025 Hammer toe of right foot (ICD-10 - M20.41) 05/22/2025 Pain in right foot (ICD-10 - M79.671) 11/28/2024 Left foot pain (ICD-10 - M79.672) 12/12/2024 Pain in right foot (ICD-10 - M79.671) 12/12/2024 Left foot pain (ICD-10 - M79.672) 05/22/2025 Left foot pain (ICD-10 - M79.672) [...] foot in the subtalar joint neutral position. 11/28/2024 Other Following skin prep, a total [...] Insured Coverage Start Date Coverage End Date [facility] [address] [address] [place] [address] [id number] ALFREDITO CAMARGO Self - patient is the insured
--- OUTSIDE RECORDS SUMMARY | 2025-06-21 08:55 | XMS_ITS | Clinical Summary ---
Author Organization [facility] Address [address] [place] [address] Care Team Providers Care Associate Principal Name Role Phone Moris Duncan MD Primary Care Provider [phone] Source Comments [facility],non-owned Affiliates and Associated Physician Practices is amultiple site organization consisting of ambulatory clinics and hospital sitesin [place], [place], [place] and [place]. This disclosure is being madepursuant to the Care Everywhere program and may not contain all information available regarding this patient. Last updated 18.[facility] Allergies No known active allergies Medications * [...] Vitamin (MULTI-VITAMINS ) TABS once daily Active Flintstone-3 Fatty Acids (KP FISH OIL) 1200 MG [...] kPa Immunizations Immunization Administration Dates Next Due [employer] primary monoval ent 12+ yr 0.3mL Purple [...] on file Legal Sex Female 5:58 PM CARDIOVASCULAR SURGEON Gender Identity Not on file Sexual Orientation Not on file Last Filed Vital Signs Vital Sign Reading Time Taken Comments Blood Pressure 130/88 08/18/2022 10:45 AM CARDIOVASCULAR SURGEON Pulse 85 08/18/2022 10:45 AM CARDIOVASCULAR SURGEON Temperature 36.6 C (97.8 F) 08/18/2022 10:45 AM CARDIOVASCULAR SURGEON Respiratory Rate 14 08/18/2022 10:45 AM CARDIOVASCULAR SURGEON Oxygen Saturation 100% 08/18/2022 10:45 AM CARDIOVASCULAR SURGEON Inhaled Oxygen Concentration - - Weight 77.1 kg (170 lb) 08/18/2022 10:45 AM CARDIOVASCULAR SURGEON Height 157.5 cm (5' 2.01) 08/18/2022 10:45 AM C Body Mass Index 31.09 08/18/2022 10:45 AM CARDIOVASCULAR SURGEON Plan of Treatment Health Maintenance Due Date [...] 02/23/2004 ZOSTER VACCINE (1 of 2) 02/23/2004 SCREENING FOR DIABETES 09/22/2024 09/22/2021 DEPRESSION SCREENING 10/02/2024 COVID-19 VACCINE (2024- season) 2025 05/18/2021, 11/30/2020, 11/09/2020 INFLUENZA VACCINE (#1) 2025 , 05/18/2021, 07/01/2020, Additional history exists Respiratory Syncytial [...] Management General On track( 022 10:52 AM CARDIOVASCULAR SURGEON) Donte Reveles RN Note: Expected end date: Interventions: Take all medications as prescribed Let your doctor know right away about any changes in your medications Make sure to request a refill of your medication at least one week prior to your last dose Procedures Procedure Name Priority Date/Time Associated Diagnosis Comments COMPREHENSIVE METABOLIC PANEL Routine 09/22/2021 12:40 PM CARDIOVASCULAR SURGEON Elevated liver enzymes Liver cyst HEPATITIS C ANTIBODY Routine 09/22/2021 12:40 PM CARDIOVASCULAR SURGEON Elevated liver enzymes Liver cyst from Last 3 Months or Most Recently Relevant to Health Maintenance Results * (ABNORMAL) COMPREHENSIVE METABOLIC PANEL (09/22/2021 12:40 PM CARDIOVASCULAR SURGEON) BUN 13 7 - 26 mg/dL 09/22/2021 2:10 PM [facility] Creatinine 0.58 0.56 - 0.96 mg/dL 09/22/2021 2:10 PM [facility] Sodium 137 136 - 145 mmol/L 09/22/2021 2:10 PM [facility] Potassium 3.7 3.5 - 4.5 mmol/L 09/22/2021 2:10 PM [facility] Chloride 104 98 - 107 mmol/L 09/22/2021 2:10 PM [facility] CO2 27 22 - 29 mmol/L 09/22/2021 2:10 PM [facility] Glucose 141(H) 70 - 115 mg/dL 09/22/2021 2:10 PM [facility] Calcium 9.6 8.4 - 10.2 mg/dL 09/22/2021 2:10 PM [facility] Protein Total 7.5 6.0 - 8.3 g/dL 09/22/2021 2:10 PM [facility] Albumin 3.7 3.4 - 5.0 g/dL 09/22/2021 2:10 PM [facility] Bilirubin Total 0.4 0.2 - 1.2 mg/dL 09/22/2021 2:10 PM [facility] Alkaline Phosphatase 56 40 - 150 U/L 09/22/2021 2:10 PM [facility] ALT 41 5 - 55 U/L 09/22/2021 2:10 PM [facility] AST 33 5 - 34 U/L 09/22/2021 2:10 PM [facility] Anion Gap 10 8 - 18 09/22/2021 2:10 PM [facility] BUN/Creatinine Ratio 22 7 - 23 09/22/2021 2:10 PM [facility] Osmolality Calculated 286 270 - 300 mOsm/kg 09/22/2021 2:10 PM [facility] Albumin/Globulin Ratio 1.0(L) 1.1 - 2.3 09/22/2021 2:10 PM [facility] eGFR by CKD-EPI >90 >=90 mL/min/1.7 3 m2 09/22/2021 2:10 PM [facility] Blood BLOOD SPECIMEN / Unknown Lab Venipuncture / Unknown 09/22/2021 12:40 PM CARDIOVASCULAR SURGEON 09/22/2021 1:42 PM CARDIOVASCULAR SURGEON Tez Cárdenas MD LAB - CHEMISTRY ORDERA BLES Final Result [facility] [address] [place] [address], [facility] [phone] * HEPATITIS C ANTIBODY (09/22/2021 12:40 PM CARDIOVASCULAR SURGEON) Hepatitis C Antibody Non-react estrada Non-reac tive 09/22/2021 2:36 PM [facility] Comment:Hepatitis C Antibody screen indicates no serologic evidence of past or current infection with Hepatitis C Virus. Patients with unexplained liver disease who are immunocompromised or suspected of having acute Hepatitis C infection may benefit from Nucleic Acid Test (MEME) for Hepatitis C Viral RNA to confirm Hepatitis C status. Blood BLOOD SPECIMEN / Unknown Lab Venipuncture / Unknown 09/22/2021 12:40 PM CARDIOVASCULAR SURGEON 09/22/2021 1:30 PM CARDIOVASCULAR SURGEON Tez Cárdenas MD LAB - CHEMISTRY ORDERA BLES Final Result [facility] [address] [place] [address], [facility] [phone] from Last 3 Months or Most Recently Relevant to Health Maintenance Insurance AETNA MEDICARE AETNA MEDICARE ADV AETNA Care Teams Associate Principal Relationship Specialty Start Date End Date Moris Duncan MD [address] [place] [address] PCP - General 09/08/22
--- OUTSIDE RECORDS SUMMARY | 2025-06-21 08:55 | XMS_ITS ---
Author Organization [facility] Address [address] [place] [address] Care Team Providers Care Stunner Animal Name Role Phone Shira Alcocer MD Primary Care Provider [phone] Derrick Varghese MD Unavailable [phone] [facility] Unavailable UnavailTalia Bhatt RN Unavailable Unavailable Home Infusion Status:Enrolled (Active) Start date:02/07/2025 Enrollment date:02/07/2025 Related service episodes:[facility] - REMICADE 600 mg IV EVERY 8 WEEKS (Active) Overview Cutover complete Chelo Lerma RN 02/24/2025 7:45 AM Case Team Name Relationship Phone Talia Reynolds RN(Responsible Staff) Home Infu graciela Nursing Continued Care and Services Coordination
--- OUTSIDE RECORDS SUMMARY | 2025-06-21 08:55 | XMS_ITS ---
Author Organization [facility] Address [address] [place] [address] Care Team Providers Care Landcare Facilitator Name Role Phone Shira Alcocer MD Primary Care Provider [phone] Derrick Varghese MD Unavailable [phone] [facility] Unavailable UnavailTalia Bhatt RN Unavailable Unavailable [facility]rap[facility] - REMICADE 600 mg IV EVERY 8 WEEKS Status:Enrolled (Active) Start date:02/07/2025 Enrollment date:02/07/2025 Linked medications:infliximab (Active) Related program episode:Home Infusion (Active) Overview Cutover complete Case Team Name Relationship Phone Talia Reynolds RN Home Infusion Nursing Saroj Cornejo [facility](Responsible Staff) Pharma cist Continued Care and Services Coordination This section includes services coordinated for [facility] Special[facility] Therapies - REMICADE 600 mg IV EVERY 8 WEEKS. Home Medical Care Name Services Phone [facility] Home Infusion Therapy Home Infusion and Inje ction
[2025-06-21 09:05] VITALS: BP 126/79; PULSE 80; RESP 18; TEMP 37.1; O2SAT 99
--- OUTSIDE RECORDS SUMMARY | 2025-06-21 11:11 | XMS_ITS | Encounter Summary ---
Author Organization [facility] Address [facility] [place] [address] Care Team Providers Care Concierge Receptionist Name Role Phone Abelino Suggs MD Unavailable [phone] Pancho Young MD Unavailable Unavailable Tien VII, Marquez Allan MD Primary Care Prov ider Melanie Oliva Primary Care Provider [phone] Encounter Details Date Type Department Care Team (Late st Contact Info) Description 07/10/2024 Compass-EOS Message Enc [facility] Family Medicine - [place] [address], [address] [place] [address] Tiffanie, [facility] Provider PFT Order Social History Tobacco Use [...] Sex Assigned at Female 11/14/2024 1:31 PM INSTITUTIONAL RESEARCH DIRECTOR Legal Sex Female 7:06 PM CDT Gender Identity Female 11/14/2024 1:31 PM INSTITUTIONAL RESEARCH DIRECTOR Sexual Orientation Not on file documented as of this encounter Plan of Treatment Upcoming Encounters Date Type Department Care Team (Late st Contact Info) Description 06/30/2025 9:45 AM CDT Office Visit [facility] [address] [place] [address] Abelino Suggs MD [address] [facility] [address] [place] [address] 11/17/2025 1:40 PM INSTITUTIONAL RESEARCH DIRECTOR Office Visit [facility] Family & Internal Medicine - [place] [address] [place] [address] Melanie Oliva FNP [address] [place] [address] documented as of this encounter Visit Diagnoses Not on filedocumented in this encounter Additional Health Concerns Assessment Noted Time PHQ-9 Depression Total Score: 0 06/08/20 9:14 AM CDT documented as of this encounter Care Teams Concierge Receptionist Relationship Specialty Start Date End Date Tien VII, Marquez Allan MD [address] [place] [address], [address] [address] PCP - General FAMILY PRACTICE 07/10/24 10/07/24 Melanie Oliva FNP [facility] [place] [address] PCP - General Nurse Practitioner Family 10/08/24 Abelino Suggs MD [address] [place] [address] Physician CARDIOVASCULAR DISEASE 09/19/23 Pancho Young MD [address] [place] [address] Consulting Physician ORTHOPAEDIC SURGERY 09/19/23 documented as of this encounter
--- OUTSIDE RECORDS SUMMARY | 2025-06-21 11:11 | XMS_ITS | Encounter Summary ---
Author Organization [facility] Address [address] [place] [address] Care Team Providers Care Vice President Of Marketing Name Role Phone Abelino Suggs MD Unavailable Pancho Young MD Unavailable Unavailable Tien VII, Marquez Allan MD Primary Care Prov ider Melanie Oliva Primary Care Provider [phone] Encounter Details Date Type Department Care Team (Late st Contact Info) Description 07/26/2024 MyChart Message Enc [facility] Family Medicine - [place] [address] [facility], [address] [place] [address] [place] [address] [place] [address] Cough Social History Tobacco Use Types Packs/Day [...] Sex Assigned at Female 11/14/2024 1:31 PM CELLO TEACHER Legal Sex Female 7:06 PM CDT Gender Identity Female 11/14/2024 1:31 PM CELLO TEACHER Sexual Orientation Not on file documented as of this encounter Plan of Treatment Upcoming Encounters Date Type Department Care Team (Late st Contact Info) Description 06/30/2025 9:45 AM CDT Office Visit [facility] [address] [place] [address] Abelino Suggs MD [place] [place] [address] 11/17/2025 1:40 PM CELLO TEACHER Office Visit [facility] Family & Internal Medicine - [place] [address] [place] [address] Melanie Oliva FNP [address] [place] [address] documented as of this encounter Visit Diagnoses Not on filedocumented in this encounter Additional Health Concerns Assessment Noted Time PHQ-9 Depression Total Score: 0 06/08/20 9:14 AM CDT documented as of this encounter Care Teams Vice President Of Marketing Relationship Specialty Start Date End Date Tien VII, Marquez Allan MD [address] [place] [address] PCP - General FAMILY PRACTICE 07/10/24 10/07/24 Melanie Oliva FNP [address] [place] [address] PCP - General Nurse Practitioner Family 10/08/24 Abelino Suggs MD [facility] [place] [address] Physician CARDIOVASCULAR DISEASE 09/19/23 Pancho Young [facility] [address] [place] [address] Consulting Physician ORTHOPAEDIC SURGERY 09/19/23 documented as of this encounter
--- OUTSIDE RECORDS SUMMARY | 2025-06-21 11:11 | XMS_ITS | Clinical Summary ---
Author Organization [facility] Address [address] [place] [address] Care Team Providers Care Pile Driver Operator Barge Mounted Name Role Phone Abelino Glez MD Unavailable [phone] Pancho Young MD Unavailable Unavailable Melanie Oliva Primary Care Provider [phone] Allergies Active Allergy Reactions Criticality Noted Date [...] daily as needed (joint pain). 2 Active [place]-3 Fatty Acids (FISH OIL) 300 MG Cap [...] medication use 04/23/2017 Spondyloarthropathy 04/21/2017 Psoriatic arthritis ([facility]) 03/29/2016 Rheumatoid arthritis ([facility]) HLD (hyperlipidemia) Hypertension Resolved Problems Problem Noted Date Diagnosed Date Resolved Date Elevated liver enzymes 09/22/202102/10 Obesity (BMI 30.0-34.9) 04/18/201911/02 Diffuse cystic mastopathy 12/08/2014 Encounters Date Type Department Care Team Description 05/22/2025 Results Follow-Up [facility] [address] [place] [address] Carly Garcia RN CTA CHEST, USE ECHOCARDIOGRAM 05/21/2025 10:24 AM CDT - 05/21/2025 11:59 PM CDT Hospital Encounter [facility] [address] [address] Abelino Glez MD Discharge Disposition: Home or Self Care (Routine Discharge) 05/21/2025 Travel 05/15/2025 1:00 PM CDT Office Visit [facility] Medical [facility] Family & Internal Medicine - [address] [id number] Melanie Oliva FNP Hypertension 05/15/2025 Travel from [...] 85) heart disease Paternal Grandfather (Age 40) [place] Sister Alive Social History Tobacco Use Types [...] Sex Assigned at Female 11/14/2024 1:31 PM STOVE REFINISHER Legal Sex Female 7:06 PM CDT Gender Identity Female 11/14/2024 1:31 PM STOVE REFINISHER Sexual Orientation Not on file Last Filed [...] Description 06/30/2025 9:45 AM CDT Office Visit [facility] [address] [place] [address] Abelino Glez MD [facility], [address] [place] [address] 11/17/2025 1:40 PM STOVE REFINISHER Office Visit [facility] Medical [facility] Family & Internal Medicine - [place] [address] [place] [address] Melanie Oliva, [facility] [address] [place] [address] Health Maintenance Due Date Last Done Comments [...] 50+ Years Completed 11/14/2024, 08/11/2020 PHQ-2 (Physician [place]) Completed 05/15/2025 Meningococcal B Vaccine Aged Out No l onger eligible based on patient's age to complete this topic Meningococcal Vaccine Aged Out No eric stone eligible based on patient's age to complete this topic RSV Immunizations Under 20 Months Aged Out No longer eligible based on patient's age to complete this topic Medical Devices Implanted Type Area Water Rights Specialist Device Identifier Shelf Expiration Date Model / Serial / Lot 3.0mm X 16mm Asnis Screw Implanted:Qty: 2 on 02/26/2020 by [facility]ana [facility] DPM [facility] Screw Right: Toe [employer] EB[employer]Y [id number] / / 2.0mm X 14mm Asnis Screw Implanted:Qty: 1 on 02/26/2020 by Ivana Betancur DPM at [facility] Screw Right: Toe [employer] 40.00000 / / Wire Fixation Fer Stainless Steel L9 In Od.045 In 2 Tr - [id number] Implanted:Qty: 2 on 02/26/2020 by Ivana Betancur DPM at [facility] Right: Toe [employer] [id number] / [...] CDT Echocardiography Report Pat.Name: NIGHAT CAMARGO Pat.ID: [id number] St.Date: 05/21/2025 Exam Time: 11:02:00 AM Study [...] 32 mm Right and Left 1.05 [place] 65 mm Ventricular Septum IVSd 1.2 cm Left Atrium LA VOLBP 46.4 ml Aorta Ao Rtd 3.9 cm LVOT LVOT 2 cm LVOTArea 3.14 cm2 Ratios IVS LA Biplane LAVol I BP 28 ml/m2 Right Atrium Minor [place] 25 mm RA Single Plane Right Atrium MO 9.05 mm Right Atrium Sy 21.1 ml Right Atrium Sy 55.3 mm Right Atrium Sy 12.7 ml/m2 Right Atrium Sy 11.9 cm2 MMODE TA Tricuspid Annul 20.9 mm <Electronic Signature> 05/23/2025 03:13 PM Abelino Glez M.D. Procedure Note Abelino Glez MD - 05/23/2025 Echocardiography Report Pat.Name: NIGHAT CAMARGO Pat.ID: [id number] .Date: 05/21/2025 Exam Time: 11:02:00 AM Study [...] Peak Gradient ( 3 mmHg Right Atrium Franics's Disk 20 Right Ventricle Right Ventricle 11.5 [...] 32 mm Right and Left 1.05 [place] 65 mm Ventricular Septum IVSd 1.2 cm Left Atrium LA VOLBP 46.4 ml Aorta Ao Rtd 3.9 cm LVOT LVOT 2 cm LVOTArea 3.14 cm2 Ratios IVS LA Biplane LAVol I BP 28 ml/m2 Right Atrium Minor [place] 25 mm RA Single Plane Right Atrium [...] 2:59 AM Narrative 05/22/2025 3:07 AM CDT [address] [address] PROCEDURE:CTA CHEST HISTORY: Dilated aortic root. TECHNIQUE: [...] Procedure Note Bruno Feng MD - 05/22/[address] [address] PROCEDURE:CTA CHEST HISTORY: Dilated aortic root. TECHNIQUE: [...] (05/01/2023) Anatomical Region Laterality Modality Other 05/01/2023 [facility] Scanned SCANNING Final Resu lt * MAMMOGRAM GENERIC (05/01/2023) Anatomical Region Laterality Modality Other 05/01/2023 [facility] Scanned SCANNING Final Resu lt * HEPATITIS PANEL,ACUTE (07/07/2021 9:15 AM CDT) HAV IGM NON-REACTI VE NON-REACT EFRA [facility] Comment: For additional information, please refer to http://education.L99.com/faq/ZYL815 (This link is being provided for informational/ [...] a test for HCV RNA (test code 03178) is suggested. For additional information please refer to http://education.L99.com/faq/BLH42g6 (This link is being provided for informational/ educational purposes only.) 07/07/2021 9:1 5 AM CDT 07/07/2021 9:16 AM CDT Narrative [facility] - 07/08/2021 8:53 AM CDT FASTING:YES FASTING: YES us Shira Alcocer MD LABORATORY Final Result [facility] [address] [address] * COLONOSCOPY GENERIC (12/05/2017) 12/05/2017 Narrative 12/05/2017 Ordered by an unspecified provider. us Documents Scanned SCANNING Final Result from Last 3 Months or Most Recently Relevant to [place] [address] [facility] Care Teams Pile Driver Operator Barge Mounted Relationship Specialty Start Date End Date Melanie Oliva FNP [address] [place] [address] PCP - General Nurse Practitioner Family 10/08/24 Abelino Glez MD Three [facility], [address] [place] [address] Physician CARDIOVASCULAR DISEASE 09/19/23 Pancho Young MD [facility], [address] [place] [address] Consulting Physician ORTHOPAEDIC SURGERY 09/19/23
--- OUTSIDE RECORDS SUMMARY | 2025-06-21 11:11 | XMS_ITS | Encounter Summary ---
Author Organization [facility] Address [address] [place] [address] Care Team Providers Care Planograph Operator Name Role Phone Shira Alcocer MD Primary Care Provider [phone] Abelino Suggs MD Unavailable [phone] Pancho Young MD Unavailable Unavailable Tien VII, Marquez Allan MD Primary Care Prov ider Melanie Oliva Primary Care Provider [phone] Encounter Details Date Type Department Care Team (Late st Contact Info) Description 08/12/2021 MyChart Message Enc [facility] Medical Group Family Medicine - [place] [address], [address] [place] [address] [place] [address] [address] Appt at [employer] Social History Tobacco Use Types Packs/Day Years [...] Sex Assigned at Female 11/14/2024 1:31 PM 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 Legal Sex Female 7:06 PM CDT Gender Identity Female 11/14/2024 1:31 PM 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 Sexual Orientation Not on file COVID-19 Exposure [...] heptaology referral and let pt know thanks M AND GAS TURBINE ASSEMBLER documented in this encounter Plan of Treatment Upcoming Encounters Date Type Department Care Team (Late st Contact Info) Description 06/30/2025 9:45 AM CDT Office Visit [facility] [address] [place] [address] Abelino Sgugs MD [facility], [address] [place] [address] 11/17/2025 1:40 PM 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 Office Visit [facility] Medical Group Family & Internal Medicine - [place] [address] [place] [address] Melanie Oliva FNP [address] [place] [address] documented as of this encounter Visit Diagnoses Not on filedocumented in this encounter Additional Health Concerns Assessment Noted Time PHQ-9 Depression Total Score: 0 06/08/20 21 9:14 AM CDT documented as of this encounter Care Teams Planograph Operator Relationship Specialty Start Date End Date Shira Alcocer MD PCP - General FAMILY PRACTICE 06/08/21 07/09/24 Marquez Ngo MD [address] [place] [address], [facility] [address] [place] [address] PCP - General FAMILY PRACTICE 07/10/24 10/07/24 Melanie Oliva FNP [address] [place] [address] PCP - General Nurse Practitioner Family 10/08/24 Abelino Suggs MD [facility], [address] [facility] [place], [place] [address] Physician CARDIOVASCULAR DISEASE 09/19/23 Pancho Young MD [facility], [address] [place] [address] Consulting Physician ORTHOPAEDIC SURGERY 09/19/23 documented as of this encounter
--- OUTSIDE RECORDS SUMMARY | 2025-06-21 11:11 | XMS_ITS | Encounter Summary ---
Author Organization [facility] Address [address] [place] [address] Care Team Providers Care Senior Lead Project Manager Name Role Phone Shira Alcocer MD Primary Care Provider [phone] Abelino Suggs MD Unavailable [phone] Pancho Young MD Unavailable Unavailable Tien VII, Marquez Allan MD Primary Care Prov ider Melanie Oliva Primary Care Provider [phone] Encounter Details Date Type Department Care Team (Late st Contact Info) Description 05/08/2023 MyChart Message Enc [facility] Family Medicine - [place] [address] [facility], [address] [place] [address] [place] [address] [address] RSV vaccine Social History Tobacco Use Types [...] Sex Assigned at Female 11/14/2024 1:31 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 Legal Sex Female 7:06 PM CDT Gender Identity Female 11/14/2024 1:31 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 Sexual Orientation Not on file documented as of this encounter Plan of Treatment Upcoming Encounters Date Type Department Care Team (Late st Contact Info) Description 06/30/2025 9:45 AM CDT Office Visit [facility] [address] [place] [address] Abelino Suggs MD Three [facility], [address] [place] [address] 11/17/2025 1:40 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 Office Visit [facility] Family & Internal Medicine - [place] [address] [place] [address] Melanie Oliva FNP [address] [place] [address] documented as of this encounter Visit Diagnoses Not on filedocumented in this encounter Additional Health Concerns Assessment Noted Time PHQ-9 Depression Total Score: 0 06/08/20 9:14 AM CDT documented as of this encounter Care Teams Senior Lead Project Manager Relationship Specialty Start Date End Date Shira Alcocer MD PCP - General FAMILY PRACTICE 06/08/21 07/09/24 Marquez Ngo MD [address] [place] [address] PCP - General FAMILY PRACTICE 07/10/24 10/07/24 Melanie Oliva FNP [address] [place] [address] PCP - General Nurse Practitioner Family 10/08/24 Abelino Suggs MD [facility], [address] [place] [address] Physician CARDIOVASCULAR DISEASE 09/19/23 Pancho Young MD [facility], [address] [facility] [place] [address] Consulting Physician ORTHOPAEDIC SURGERY 09/19/23 documented as of this encounter
--- OUTSIDE RECORDS SUMMARY | 2025-06-21 11:11 | XMS_ITS | Encounter Summary ---
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 Legal Sex Female 7:06 PM CDT Gender Identity Female 11/14/2024 1:31 PM ECONOMIC RESEARCH ANALYST Sexual Orientation Not on file documented as of this encounter Plan of Treatment Upcoming Encounters Date Type Department Care Team (Late st Contact Info) Description 06/30/2025 9:45 AM CDT Office Visit [facility] [address] [place] [address] Abelino Suggs MD [facility], [address] [place] [address] 11/17/2025 1:40 PM ECONOMIC RESEARCH ANALYST Office Visit [facility] Medical Group Family & Internal Medicine - [place] [address] [place] [address] Melanie Oliva FNP [address] [place] [address] documented as of this encounter Visit Diagnoses Not on filedocumented in this encounter Additional Health Concerns Assessment Noted Time PHQ-9 Depression Total Score: 0 06/08/20 21 9:14 AM CDT documented as of this encounter Care Teams Residential Field Manager Relationship Specialty Start Date End Date Melanie Oliva FNP [address] [place] [address] PCP - General Nurse Practitioner Family 10/08/24 Abelino Suggs MD [facility], [address] [place] [address] Physician CARDIOVASCULAR DISEASE 09/19/23 Pancho Young MD [facility], [address] [place] [address] Consulting Physician ORTHOPAEDIC SURGERY 09/19/23 documented as of this encounter
--- OUTSIDE RECORDS SUMMARY | 2025-06-21 11:11 | XMS_ITS ---
Author Organization [facility] Address [address] [place] [address] Care Team Providers Care Photo Lab Manager Name Role Phone Shira Alcocer MD Primary Care Provider [phone] Derrick Varghese MD Unavailable [phone] Saroj Cornejo [facility] Unavailable UnavailTalia Bhatt RN Unavailable Unavailable Home Infusion Status:Enrolled (Active) Start date:02/07/2025 Enrollment date:02/07/2025 Related service episodes:[facility] Specialty Therapies - REMICADE 600 mg IV EVERY 8 WEEKS (Active) Overview Cutover complete Chelo Lerma RN 02/24/2025 7:45 AM Case Team Name Relationship Phone Talia Reynolds RN(Responsible Staff) Home Infu graciela Nursing Continued Care and Services Coordination
--- OUTSIDE RECORDS SUMMARY | 2025-06-21 11:11 | XMS_ITS | Encounter Summary ---
Author Organization [facility] Address [address] [place] [address] Care Team Providers Care Foam Charger Name Role Phone Shira Alcocer MD Primary Care Provider [phone] Abelino Suggs MD Unavailable [phone] Pancho Young MD Unavailable Unavailable Tien VII, Marquez Allan MD Primary Care Prov ider Melanie Oliva Primary Care Provider [phone] Encounter Details Date Type Department Care Team (Late st Contact Info) Description 09/12/2022 MyCAscenta Therapeuticst Message Enc [facility] Family Medicine - [place] [address] [facility], [address] [place] [address] [place] [address] [address] Return visits Social History Tobacco Use Types [...] Sex Assigned at Female 11/14/2024 1:31 PM TIME BUYER Legal Sex Female 7:06 PM CDT Gender Identity Female 11/14/2024 1:31 PM TIME BUYER Sexual Orientation Not on file COVID-19 Exposure Response Date Recorded In the last 10 days, have yo u been in contact with someone who was confirmed or suspected to have Coronavirus/COVID-19? No / Unsure 08/23/2022 1:12 PM TIME BUYER documented as of this encounter Plan of Treatment Upcoming Encounters Date Type Department Care Team (Late st Contact Info) Description 06/30/2025 9:45 AM CDT Office Visit [facility] [address] [place], [place] [address] Abelino Suggs MD [facility], [address] [place] [address] 11/17/2025 1:40 PM TIME BUYER Office Visit [facility] Group Family & Internal Medicine - [place] [address] [place] [address] Melanie Oliva FNP [address] [place] [address] documented as of this encounter Visit Diagnoses Not on filedocumented in this encounter Additional Health Concerns Assessment Noted Time PHQ-9 Depression Total Score: 0 06/08/20 21 9:14 AM CDT documented as of this encounter Care Teams Foam Charger Relationship Specialty Start Date End Date Shira Alcocer MD PCP - General FAMILY PRACTICE 06/08/21 07/09/24 Marquez Ngo MD [address] [place] [address], [address] [address] PCP - General FAMILY PRACTICE 07/10/24 10/07/24 Melanie Oliva FNP [address] [place] [address] PCP - General Nurse Practitioner Family 10/08/24 Abelino Suggs MD [facility], [address] [place] [address] Physician CARDIOVASCULAR DISEASE 09/19/23 Pancho Young MD [facility], [address] [place] [address] Consulting Physician ORTHOPAEDIC SURGERY 09/19/23 documented as of this encounter
--- OUTSIDE RECORDS SUMMARY | 2025-06-21 11:11 | XMS_ITS | Clinical Summary ---
Author Organization [facility] Address [address] [place] [address] Care Team Providers Care Fern Gatherer Name Role Phone Shira Alcocer MD Primary Care Provider [phone] Derrick Varghese MD Unavailable [phone] Saroj Cornejo [facility] Unavailable Unavaila Talia Knowles RN Unavailable [...] 10/12/19 22 Active 0.9 % sodium chloride ([facility] sodium chloride 0.9%) injectionIndicat ions:Maintain Patency [...] 1 tablet (650 mg total) by mouth tenon machine operator Please provide 650 mg acetaminophen by mouth [...] Department Care Team Description 06/09/2025 Home Infusion [facility] Home Infusion Therapy [address] [place] [address] Saroj Cornejo, [facility] 05/28/2025 9:00 AM CDT Home Care Visit [facility] [address] [place] [address] Talia Reynolds RN [facility] INF [address] ROUTINE 05/22/2025 Home Infusion [facility] [address] [place] [address] Saroj Cornejo, [facility] 05/15/2025 Home Infusion [facility] [address] [place] [address] Saroj Cornejo, [facility] 04/29/2025 Home Infusion [facility] [address] [place] [address] Saroj Cornejo, [facility] 04/28/2025 Orders Only [facility] Rheumatology [address] [facility] 2nd Floor [address] [place] [address] Vasyl Ny 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 (Primary Dx) 03/31/2025 Home Infusion [facility] Home Infusion Therapy [address] [place] [address] Saroj Cornejo, [facility] from Last 3 Months Surgical History Surgery [...] on file Legal Sex Female 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 Gender Identity Not on file Sexual Orientation [...] ORDERABLES Final Re sult Performing Organization Address [facility] de Phone Number [facility] [address] [place] [address] * CRP (acute phase) (05/06/2025 10:06 AM CDT) C-RP <5.0 <8.0 mg/L [facility] 05/06/2025 10:0 6 AM CDT 05/06/2025 10:07 AM CDT Narrative [facility] - 05/06/2025 6:03 PM CDT FASTING:YES FASTING: YES Derrick Varghese MD LAB BLOOD ORDERABLES Final Re sult Performing Organization Address [facility] Co de Phone Number [facility] [address] [place] [address] * Erythrocyte sedimentation rate (05/06/2025 10:04 AM CDT) Erythrocyte sedimentation rate 14 < OR = 30 mm/h [facility] Blood 05/06/2025 10:0 4 AM CDT 05/06/2025 10:05 AM CDT Narrative [facility] - 05/06/2025 9:45 PM CDT FASTING:YES FASTING: YES us Derrick Varghese MD LAB BLOOD ORDERABLES Final Re sult [facility] [address] [place] [address] * (ABNORMAL) Comprehensive metabolic panel (05/06/2025 10:04 AM CDT) Pathologist [facility] Glucose 96 65 - 99 mg/dL [facility] Comment: Fasting reference interval BUN 13 7 - 25 mg/dL [facility] Creatinine 0.50(L) 0.60 - 1.00 mg/dL [facility] eGFR 100 > OR = [...] MD LAB BLOOD ORDERABLES Final Re sult [facility] [address] [place] [address] from Last 3 Months Insurance [facility] MEDICARE ADVANT[facility] MEDIC[facility] Address: [address] [address] [place] [address] [facility] MEDIC[facility] Address: [address] [place] [address] [facility] MEDICARE ADVANTAGE [facility] MEDICARE Address: [facility] [address] [place] [address] [place] [address] [facility] MEDICARE AD[facility]ANTAGE [facility] MEDIC[facility] Address: [facility] [address] [place] [address] Care Teams Fern Gatherer Relationship Specialty Start Date End Date Shira Alcocer MD [address] [facility] [address] [place] [address] PCP - General Family Practice 06/11/21 Derrick Varghese MD [address] [facility] RHE[facility], [address] [address] PCP - Home Infusion Attending Internal Medicine 02/24/25 Saroj Cornejo, [facility] Pharmacist Pharmacy 03/04/25 Talia Reynolds, [facility] 03/06/25
--- OUTSIDE RECORDS SUMMARY | 2025-06-21 11:11 | XMS_ITS | Encounter Summary ---
Author Organization [facility] Address [address] [place] [address] Care Team Providers Care Railway Switch Operator Name Role Phone Shira Alcocer MD Primary Care Provider [phone] Abelino Suggs MD Unavailable [phone] Pancho Young MD Unavailable Unavailable Tien VII, Marquez Allan MD Primary Care Prov ider Melanie Oliva Primary Care Provider [phone] Encounter Details Date Type Department Care Team (Late st Contact Info) Description 07/29/2021 MyCCarmot Therapeuticst Message Enc [facility] Family Medicine - [place] [address] [facility], [address] [place] [address] [place] [address] [address] Test Results Social History Tobacco Use Types [...] Sex Assigned at Female 11/14/2024 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 Legal Sex Female 7:06 PM CDT Gender Identity Female 11/14/2024 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 Sexual Orientation Not on file [...] Description 06/30/2025 9:45 AM CDT Office Visit [facility] [address] [place], [place] [address] Abelino Suggs MD [facility], [address] [place] [address] 11/17/2025 1:40 PM DOWELING MACHINE OPERATOR Office Visit [facility] Family & Internal Medicine - [place] [address] [place] [address] Melanie Oliva FNP [address] [place] [address] documented as of this encounter Visit Diagnoses Not on filedocumented in this encounter Additional Health Concerns Assessment Noted Time PHQ-9 Depression Total Score: 0 06/08/20 21 9:14 AM CDT documented as of this encounter Care Teams Railway Switch Operator Relationship Specialty Start Date End Date Shira Alcocer MD PCP - General FAMILY PRACTICE 06/08/21 07/09/24 Marquez Ngo MD [address] [place] [address], [address] [address] PCP - General FAMILY PRACTICE 07/10/24 10/07/24 Melanie Oliva FNP [address] [place] [address] PCP - General Nurse Practitioner Family 10/08/24 Abelino Suggs MD [facility], [address] [place] [address] Physician CARDIOVASCULAR DISEASE 09/19/23 Pancho Young MD [facility], [address] [place] [address] Consulting Physician ORTHOPAEDIC SURGERY 09/19/23 documented as of this encounter
--- OUTSIDE RECORDS SUMMARY | 2025-06-21 11:11 | XMS_ITS | Clinical Summary ---
Author Organization [facility] Address [address] [facility] [place] [address] Care Team Providers Care Chemical Lab Technician Name Role Phone Moris Duncan MD Primary Care Provider Source Comments [facility],non-owned Affiliates and Associated Physician Practices is amultiple site organization consisting of ambulatory clinics and hospital sitesin [place], [place], [place] and [place]. This disclosure is being madepursuant to the Care Everywhere program and may not contain all information available regarding this patient. Last updated 18.[facility] Allergies No known active allergies Medications * [...] Vitamin (MULTI-VITAMINS ) TABS once daily Active [place]-3 Fatty Acids (KP FISH OIL) 1200 MG [...] kPa Immunizations Immunization Administration Dates Next Due Elevate Digital primary monoval ent 12+ yr 0.3mL [...] on file Legal Sex Female 5:58 PM JINRIKSHA DRIVER Gender Identity Not on file Sexual Orientation Not on file Last Filed Vital Signs Vital Sign Reading Time Taken Comments Blood Pressure 130/88 08/18/2022 10:45 AM JINRIKSHA DRIVER Pulse 85 08/18/2022 10:45 AM JINRIKSHA DRIVER Temperature 36.6 C (97.8 F) 08/18/2022 10:45 AM JINRIKSHA DRIVER Respiratory Rate 14 08/18/2022 10:45 AM JINRIKSHA DRIVER Oxygen Saturation 100% 08/18/2022 10:45 AM JINRIKSHA DRIVER Inhaled Oxygen Concentration - - Weight 77.1 kg (170 lb) 08/18/2022 10:45 AM JINRIKSHA DRIVER Height 157.5 cm (5' 2.01) 08/18/2022 10:45 AM C Body Mass Index 31.09 08/18/2022 10:45 AM JINRIKSHA DRIVER Plan of Treatment Health Maintenance Due Date [...] Management General On track( 022 10:52 AM JINRIKSHA DRIVER) Donte Reveles RN Note: Expected end date: Interventions: Take all medications as prescribed Let your doctor know right away about any changes in your medications Make sure to request a refill of your medication at least one week prior to your last dose Procedures Procedure Name Priority Date/Time Associated Diagnosis Comments COMPREHENSIVE METABOLIC PANEL Routine 09/22/2021 12:40 PM JINRIKSHA DRIVER Elevated liver enzymes Liver cyst HEPATITIS C ANTIBODY Routine 09/22/2021 12:40 PM JINRIKSHA DRIVER Elevated liver enzymes Liver cyst from Last 3 Months or Most Recently Relevant to Health Maintenance Results * (ABNORMAL) COMPREHENSIVE METABOLIC PANEL (09/22/2021 12:40 PM JINRIKSHA DRIVER) BUN 13 7 - 26 mg/dL 09/22/2021 2:10 PM [facility] Creatinine 0.58 0.56 - 0.96 mg/dL 09/22/2021 2:10 PM [facility] Sodium 137 136 - 145 mmol/L 09/22/2021 2:10 PM [facility] Potassium 3.7 3.5 - 4.5 mmol/L 09/22/2021 2:10 PM [facility] Chloride 104 98 - 107 mmol/L 09/22/2021 2:10 PM [facility] CO2 27 22 - 29 mmol/L 09/22/2021 2:10 PM [facility] Glucose 141(H) 70 - 115 mg/dL 09/22/2021 2:10 PM [facility] Calcium 9.6 8.4 - 10.2 mg/dL 09/22/2021 2:10 PM [facility] Protein Total 7.5 6.0 - 8.3 g/dL 09/22/2021 2:10 PM [facility] Albumin 3.7 3.4 - 5.0 g/dL 09/22/2021 2:10 PM [facility] Bilirubin Total 0.4 0.2 - 1.2 mg/dL 09/22/2021 2:10 PM [facility] Alkaline Phosphatase 56 40 - 150 U/L 09/22/2021 2:10 PM [facility] ALT 41 5 - 55 U/L 09/22/2021 2:10 PM [facility] AST 33 5 - 34 U/L 09/22/2021 2:10 PM [facility] Anion Gap 10 8 - 18 09/22/2021 2:10 PM [facility] BUN/Creatinine Ratio 22 7 - 23 09/22/2021 2:10 PM [facility] Osmolality Calculated 286 270 - 300 mOsm/kg 09/22/2021 2:10 PM [facility] Albumin/Globulin Ratio 1.0(L) 1.1 - 2.3 09/22/2021 2:10 PM [facility] eGFR by CKD-EPI >90 >=90 mL/min/1.7 3 m2 09/22/2021 2:10 PM [facility] Blood BLOOD SPECIMEN / Unknown Lab Venipuncture / Unknown 09/22/2021 12:40 PM JINRIKSHA DRIVER 09/22/2021 1:42 PM JINRIKSHA DRIVER Tez Cárdenas MD LAB - CHEMISTRY ORDERA BLES Final Result [facility] [address] [place] [address], [facility] [phone] * HEPATITIS C ANTIBODY (09/22/2021 12:40 PM JINRIKSHA DRIVER) Hepatitis C Antibody Non-react estrada Non-reac tive 09/22/2021 2:36 PM [facility] Comment:Hepatitis C Antibody screen indicates no serologic evidence of past or current infection with Hepatitis C Virus. Patients with unexplained liver disease who are immunocompromised or suspected of having acute Hepatitis C infection may benefit from Nucleic Acid Test (MEME) for Hepatitis C Viral RNA to confirm Hepatitis C status. Blood BLOOD SPECIMEN / Unknown Lab Venipuncture / Unknown 09/22/2021 12:40 PM JINRIKSHA DRIVER 09/22/2021 1:30 PM JINRIKSHA DRIVER Tez Cárdenas MD LAB - CHEMISTRY ORDERA BLES Final Result [facility] [address] [place] [address], [facility] [phone] from Last 3 Months or Most Recently Relevant to Health Maintenance Insurance AETNA MEDICARE AETNA MEDICARE ADV AETNA Care Teams Chemical Lab Technician Relationship Specialty Start Date End Date Moris Duncan MD [address] [place] [address] PCP - General 09/08/22
--- OUTSIDE RECORDS SUMMARY | 2025-06-21 11:11 | XMS_ITS | Encounter Summary ---
Author Organization [facility] Address [facility] [place] [address] Care Team Providers Care Crime Scene Technician Name Role Phone Clayton Bauer MD Primary Care Provider [phone] Abelino Suggs MD Unavailable [phone] Pancho Young MD Unavailable Unavailable Tien VII, Marquez Allan MD Primary Care Prov ider Melanie Oliva Primary Care Provider [phone] Reason for Visit * Reason Onset Date Comments Medication Problem 08/19/2021 wrong pharmac y Encounter Details Date Type Department Care Team (Late st Contact Info) Description 08/19/2021 MyChart Message Enc [facility] Family Medicine - [place] [address], [address] [place] [address] [place] [address] [place] [address] Medication refills Social History Tobacco Use Types [...] Sex Assigned at Female 11/14/2024 1:31 PM ROLL INSPECTOR Legal Sex Female 7:06 PM CDT Gender Identity Female 11/14/2024 1:31 PM ROLL INSPECTOR Sexual Orientation Not on file COVID-19 Exposure Response Date Recorded In the last month, have you been in contact with someone who was confirmed or suspected to have Coronavirus / COVID-19? No / Unsure 08/16/2021 7:12 PM ROLL INSPECTOR documented as of this encounter Progress Notes * Torrie Ruth MA - 08/20/2021 12:04 PM CST Patient's prescriptions were sent to the wrong pharmacy. Please send them both to [facility]. cb INSPECTOR * Loreto Gomez MA - 08/20/2021 6:55 AM CST Last office visit at this office: Last visit with CLAYTON BAUER in FAMILY PRACTICE was on: 06/08/2021 in [facility] Future appointment scheduled: No future appointments. INSPECTOR documented in this encounter Plan of Treatment Upcoming Encounters Date Type Department Care Team (Late st Contact Info) Description 06/30/2025 9:45 AM CDT Office Visit [facility] [address] [place] [address] Abelino Suggs MD [address] [facility] [address] [place] [address] 11/17/2025 1:40 PM ROLL INSPECTOR Office Visit [facility] Family & Internal Medicine - [place] [address] [place] [address] Melanie Oliva FNP [address] [place] [address] documented as of this encounter Visit Diagnoses Diagnosis Hyperlipidemia, unspecified hyperlipidemia type- Primary documented in this encounter Additional Health Concerns Assessment Noted Time PHQ-9 Depression Total Score: 0 06/08/20 9:14 AM CDT documented as of this encounter Care Teams Crime Scene Technician Relationship Specialty Start Date End Date Clayton Bauer MD PCP - General FAMILY PRACTICE 06/08/21 07/09/24 Marquez Ngo MD [address] [place] [address], [place] [address] PCP - General FAMILY PRACTICE 07/10/24 10/07/24 Melanie Oliva FNP [address] [place] [address] PCP - General Nurse Practitioner Family 10/08/24 Abelino Suggs MD [facility], [address] [place] [address] Physician CARDIOVASCULAR DISEASE 09/19/23 Pancho Young MD [facility], [address] [place] [address] Consulting Physician ORTHOPAEDIC SURGERY 09/19/23 documented as of this encounter
--- OUTSIDE RECORDS SUMMARY | 2025-06-21 11:11 | XMS_ITS | Encounter Summary ---
Author Organization [facility] Address [address] [place] [address] Care Team Providers Care Candy Starch Mold Printer Name Role Phone Shira Alcocer MD Primary Care Provider [phone] Abelino Suggs MD Unavailable [phone] Pancho Young MD Unavailable Unavailable Tien VII, Marquez Allan MD Primary Care Prov ider Melanie Oliva Primary Care Provider [phone] Encounter Details Date Type Department Care Team (Late st Contact Info) Description 03/06/2023 MyChart Message Enc [facility] Family Medicine - [place] [address] [facility], [address] [place] [address] [place] [address] [address] Blood work Social History Tobacco Use Types [...] Sex Assigned at Female 11/14/2024 1:31 PM GRAPHIC SPECIALIST Legal Sex Female 7:06 PM CDT Gender Identity Female 11/14/2024 1:31 PM GRAPHIC SPECIALIST Sexual Orientation Not on file COVID-19 Exposure [...] Description 06/30/2025 9:45 AM CDT Office Visit [facility] [address] [place] [address] Abelino Suggs MD [facility], [address] [place] [address] 11/17/2025 1:40 PM GRAPHIC SPECIALIST Office Visit [facility] Family & Internal Medicine [facility] [address] [place] [address] Melanie Oliva FNP [address] [place] [address] documented as of this encounter Visit Diagnoses Not on filedocumented in this encounter Additional Health Concerns Assessment Noted Time PHQ-9 Depression Total Score: 0 06/08/20 21 9:14 AM CDT documented as of this encounter Care Teams Candy Starch Mold Printer Relationship Specialty Start Date End Date Shira Alcocer MD PCP - General FAMILY PRACTICE 06/08/21 07/09/24 Marquez Ngo MD [address] [place] [address], [address] [address] PCP - General FAMILY PRACTICE 07/10/24 10/07/24 Melanie Oliva FNP [address] [place] [address] PCP - General Nurse Practitioner Family 10/08/24 Abelino Suggs MD [facility], [address] [place] [address] Physician CARDIOVASCULAR DISEASE 09/19/23 Pancho Young MD [facility], [address] [place] [address] Consulting Physician ORTHOPAEDIC SURGERY 09/19/23 documented as of this encounter
--- OUTSIDE RECORDS SUMMARY | 2025-06-21 11:11 | XMS_ITS | Encounter Summary ---
Author Organization [facility] Address [address] [place] [address] Phone Care Team Providers Care Research Hydraulic Engineer Name Role Phone Moris Duncan MD Primary Care Provider [phone] Shira Alcocer MD Primary Care Provider [phone] Derrick Varghese MD Unavailable [phone] Saroj Cornejo [facility] Unavailable Unavaila Talia Knowles RN Unavailable Unavailable Encounter Details Date Type Department Care Team (Late st Contact Info) Description 04/09/2019 Orders Only [facility] Scanning, Provider Social History Tobacco Use Types Packs/Day Years Used Date Smoking Tobacco: Never Smokeless Tobacco: Never Comments Unknown Sex and Gender Information Value Date Recorded Sex Assigned at Not on file Legal Sex Female 3:12 AM LABORER VINEYARD Gender Identity Not on file Sexual Orientation [...] on filedocumented in this encounter Care Teams Research Hydraulic Engineer Relationship Specialty Start Date End Date Moris Duncan MD [address] [place] [address] PCP - General 04/21/17 06/10/21 Shira Alcocer MD [address] [facility] [address] [place] [address] PCP - General Family Practice 06/11/21 Derrick Varghese MD [address] [facility], [address] [address] PCP - Home Infusion Attending Internal Medicine 02/24/25 Saroj Cornejo, [facility] Pharmacist Pharmacy 03/04/25 Talia Reynolds, [facility] 03/06/25 documented as of this encounter
--- OUTSIDE RECORDS SUMMARY | 2025-06-21 11:11 | XMS_ITS | Encounter Summary ---
Author Organization [facility] Address [facility] [place] [address] Care Team Providers Care Fittings Finisher Name Role Phone Abelino Suggs MD Unavailable [phone] Pancho Young MD Unavailable Unavailable Tien VII, Marquez Allan MD Primary Care Prov ider Melanie Oliva Primary Care Provider [phone] Encounter Details Date Type Department Care Team (Late st Contact Info) Description 08/16/2024 trinket Message Enc [facility] Family Medicine - [place] [phone] [place], [facility] Provider labs Social History Tobacco Use Types [...] Sex Assigned at Female 11/14/2024 1:31 PM PYROTECHNICS PRESS TENDER Legal Sex Female 7:06 PM CDT Gender Identity Female 11/14/2024 1:31 PM PYROTECHNICS PRESS TENDER Sexual Orientation Not on file documented as of this encounter Plan of Treatment Upcoming Encounters Date Type Department Care Team (Late st Contact Info) Description 06/30/2025 9:45 AM CDT Office Visit [facility] [address] [place] [address] Abelino Suggs MD Three [facility] [address] [place] [address] 11/17/2025 1:40 PM PYROTECHNICS PRESS TENDER Office Visit [facility] Family & Internal Medicine - [place] [address] [place] [address] Melanie Oliva FNP [address] [place] [address] documented as of this encounter Visit Diagnoses Not on filedocumented in this encounter Additional Health Concerns Assessment Noted Time PHQ-9 Depression Total Score: 0 06/08/20 9:14 AM CDT documented as of this encounter Care Teams Fittings Finisher Relationship Specialty Start Date End Date Tien VII, Marquez Allan MD [address] [place] [address], [address] [address] PCP - General FAMILY PRACTICE 07/10/24 10/07/24 Melanie Oliva FNP [facility] [place] [address] PCP - General Nurse Practitioner Family 10/08/24 Abelino Suggs MD [address] [place] [address] Physician CARDIOVASCULAR DISEASE 09/19/23 Pancho [facility] [place] [address] Consulting Physician ORTHOPAEDIC SURGERY 09/19/23 documented as of this encounter
--- OUTSIDE RECORDS SUMMARY | 2025-06-21 11:11 | XMS_ITS ---
Author Organization [facility] Address [address] [place] [address] Care Team Providers Care Entrance Guard Name Role Phone Shira Alcocer MD Primary Care Provider [phone] Derrick Varghese MD Unavailable [phone] Saroj Cornejo [facility] Unavailable UnavailTalia Bhatt RN Unavailable Unavailable [facility] - REMICADE 600 mg IV EVERY 8 WEEKS Status:Enrolled (Active) Start date:02/07/2025 Enrollment date:02/07/2025 Linked medications:infliximab (Active) Related program episode:Home Infusion (Active) Overview Cutover complete Case Team Name Relationship Phone Talia Reynolds RN Home Infusion Nursing Saroj Cornejo [facility](Responsible Staff) Pharma cist Continued Care and Services Coordination This section includes services coordinated for [facility]rap[facility] - REMICADE 600 mg IV EVERY 8 WEEKS. Home Medical Care Name Services Phone [facility] Home Infusion Therapy Home Infusion and Inje ction
--- OUTSIDE RECORDS SUMMARY | 2025-06-21 11:11 | XMS_ITS | Encounter Summary ---
Author Organization [facility] Address [address] [place] [address] Care Team Providers Care Refrigeration Service Inspector Name Role Phone Shira Alcocer MD Primary Care Provider [phone] Abelino Suggs MD Unavailable [phone] Pancho Young MD Unavailable Unavailable Tien VII, Marquez Allan MD Primary Care Prov ider Melanie Oliva Primary Care Provider [phone] Encounter Details Date Type Department Care Team (Late st Contact Info) Description 08/18/2022 MyChart Message Enc [facility] Medical Group Family Medicine - [place] [address] [facility], [address] [place] [address] [place] [address] [address] PT Social History Tobacco Use Types Packs/Day [...] Sex Assigned at Female 11/14/2024 1:31 PM SENIOR PEOPLESOFT DEVELOPER Legal Sex Female 7:06 PM CDT Gender Identity Female 11/14/2024 1:31 PM SENIOR PEOPLESOFT DEVELOPER Sexual Orientation Not on file COVID-19 Exposure Response Date Recorded In the last 10 days, have yo u been in contact with someone who was confirmed or suspected to have Coronavirus/COVID-19? No / Unsure 08/12/2022 11:32 AM SENIOR PEOPLESOFT DEVELOPER documented as of this encounter Plan of Treatment Upcoming Encounters Date Type Department Care Team (Late st Contact Info) Description 06/30/2025 9:45 AM CDT Office Visit [facility] [address] [place], [place] [address] Abelino Suggs MD [facility], [address] [place] [address] 11/17/2025 1:40 PM SENIOR PEOPLESOFT DEVELOPER Office Visit [facility] Medical Group Family & Internal Medicine - [place] [address] [place] [address] Melanie Oliva FNP [address] [place] [address] documented as of this encounter Visit Diagnoses Not on filedocumented in this encounter Additional Health Concerns Assessment Noted Time PHQ-9 Depression Total Score: 0 06/08/20 21 9:14 AM CDT documented as of this encounter Care Teams Refrigeration Service Inspector Relationship Specialty Start Date End Date Shira Alcocer MD PCP - General FAMILY PRACTICE 06/08/21 07/09/24 Marquez Ngo MD [address] [place] [address], [address] [address] PCP - General FAMILY PRACTICE 07/10/24 10/07/24 Melanie Oliva FNP [address] [place] [address] PCP - General Nurse Practitioner Family 10/08/24 Abelino Suggs MD [facility], [address] [place] [address] Physician CARDIOVASCULAR DISEASE 09/19/23 Pancho Young MD [facility], [address] [place] [address] Consulting Physician ORTHOPAEDIC SURGERY 09/19/23 documented as of this encounter
--- OUTSIDE RECORDS SUMMARY | 2025-06-21 11:11 | XMS_ITS | Encounter Summary ---
Author Organization [facility] Address [facility] [place] [address] Care Team Providers Care Rocket Engine Tester Name Role Phone JessicacarmelaSonali DO Primary Care Provider [phone] Shira Alcocer MD Primary Care Provider [phone] OchAbelino aguila MD Unavailable [phone] Pancho Young MD Unavailable Unavailable Tien VII, Marquez Allan MD Primary Care Prov ider Melanie Oliva Primary Care Provider [phone] Encounter Details Date Type Department Care Team (Late st Contact Info) Description 02/18/2020 Prep for Procedure [facility] Pre-Admission Testing [address] [place], [place] [id number] Ivana Betancur, DPCarlton [address] [place] [address] Social History Tobacco Use Types Packs/Day Years Used Date Smoking Tobacco: Never Smokeless Tobacco: Never Alcohol Use Standard Drinks/Week Comments Yes 0 (1 standard drink = 0.6 oz pur e alcohol) social Comments No Sex and Gender Information Value Date Recorded Sex Assigned at Female 11/14/2024 1:31 PM DIE DESIGNER APPRENTICE Legal Sex Female 7:06 PM CDT Gender Identity Female 11/14/2024 1:31 PM DIE DESIGNER APPRENTICE Sexual Orientation Not on file documented as of this encounter Plan of Treatment Upcoming Encounters Date Type Department Care Team (Late st Contact Info) Description 06/30/2025 9:45 AM CDT Office Visit [facility] [address] [place] [address] Abelino Suggs MD Three [facility], [address] [place] [address] 11/17/2025 1:40 PM DIE DESIGNER APPRENTICE Office Visit [facility] Family & Internal Medicine - [place] [address] [place] [address] Melanie Oliva FNP [address] [place] [address] documented as of this encounter Visit Diagnoses Diagnosis Pre-op exam- Primary Preoperative examination, unspecified documented in this encounter Additional Health Concerns Infection Onset Date Last Indicated Resolved Time COVID-19 Rule Out 02/24/2020 02/24/2020 02/25/2020 3:25 AM CDT documented as of this encounter Care Teams Rocket Engine Tester Relationship Specialty Start Date End Date Sonali Sales DO [address] [place] [address] PCP - General FAMILY PRACTICE 02/18/20 06/07/21 Shira Alcocer MD [address] [place] [address] PCP - General FAMILY PRACTICE 06/08/21 07/09/24 Marquez Ngo MD [address] [place] [address], [facility] [address] [place] [address] PCP - General FAMILY PRACTICE 07/10/24 10/07/24 Melanie Oliva FNP [address] [place] [address] PCP - General Nurse Practitioner Family 10/08/24 Abelino Suggs MD [facility], [address] [place] [address] Physician CARDIOVASCULAR DISEASE 09/19/23 Pancho Young MD [facility], [address] [place] [address] Consulting Physician ORTHOPAEDIC SURGERY 09/19/23 documented as of this encounter
--- OUTSIDE RECORDS SUMMARY | 2025-06-21 11:11 | XMS_ITS | Encounter Summary ---
Author Organization [facility] Address [address] [place] [address] Care Team Providers Care Cable Television Program Director Name Role Phone Shira Alcocer MD Primary Care Provider [phone] Abelino Suggs MD Unavailable [phone] Pancho Young MD Unavailable Unavailable Tien VII, Marquez Allan MD Primary Care Prov ider Melanie Oliva Primary Care Provider [phone] Encounter Details Date Type Department Care Team (Late st Contact Info) Description 09/01/2021 MyChart Message Enc [facility] Medical [facility] Family Medicine - [place] [address] [facility], [address] [place] [address] [place] [address] [address] [address] Referral Social History Tobacco Use Types Packs/Day [...] Sex Assigned at Female 11/14/2024 1:31 PM RETAIL COVERAGE MERCHANDISER Legal Sex Female 7:06 PM CDT Gender Identity Female 11/14/2024 1:31 PM RETAIL COVERAGE MERCHANDISER Sexual Orientation Not on file COVID-19 Exposure Response Date Recorded In the last month, have you been in contact with someone who was confirmed or suspected to have Coronavirus / COVID-19? No / Unsure 08/16/2021 7:12 PM RETAIL COVERAGE MERCHANDISER documented as of this encounter Plan of Treatment Upcoming Encounters Date Type Department Care Team (Late st Contact Info) Description 06/30/2025 9:45 AM CDT Office Visit [facility] [address] [place], [place] [id number] Abelino Suggs MD [facility], [address] [place] [address] 11/17/2025 1:40 PM RETAIL COVERAGE MERCHANDISER Office Visit [facility] Family & Internal Medicine [facility] [address] [place] [address] Melanie Oliva FNP [address] [place] [address] documented as of this encounter Visit Diagnoses Not on filedocumented in this encounter Additional Health Concerns Assessment Noted Time PHQ-9 Depression Total Score: 0 06/08/20 21 9:14 AM CDT documented as of this encounter Care Teams Cable Television Program Director Relationship Specialty Start Date End Date Shira Alcocer MD PCP - General FAMILY PRACTICE 06/08/21 07/09/24 Marquez Ngo MD [address] [place] [address], [address] [address] PCP - General FAMILY PRACTICE 07/10/24 10/07/24 Melanie Oliva FNP [address] [place] [address] PCP - General Nurse Practitioner Family 10/08/24 Abelino Suggs MD [facility], [address] [place] [address] Physician CARDIOVASCULAR DISEASE 09/19/23 Pancho Young MD [facility], [address] [place] [address] Consulting Physician ORTHOPAEDIC SURGERY 09/19/23 documented as of this encounter
--- OUTSIDE RECORDS SUMMARY | 2025-06-21 11:11 | XMS_ITS | Encounter Summary ---
Author Organization [facility] Address [address] [place] [address] Care Team Providers Care Database Specialist Name Role Phone Shira Alcocer MD Primary Care Provider [phone] Abelino Suggs MD Unavailable [phone] Pancho Young MD Unavailable Unavailable Tien VII, Marquez Allan MD Primary Care Prov ider Melanie Oliva Primary Care Provider [phone] Encounter Details Date Type Department Care Team (Late st Contact Info) Description 09/27/2021 MyChart Message Enc [facility] Family Medicine - [place] [address] [facility], [address] [place] [address] [place] [address] [address] Follow up visits Social History Tobacco Use [...] Sex Assigned at Female 11/14/2024 1:31 PM WELDING MACHINE OPERATOR THERMIT Legal Sex Female 7:06 PM CDT Gender Identity Female 11/14/2024 1:31 PM WELDING MACHINE OPERATOR THERMIT Sexual Orientation Not on file documented as of this encounter Plan of Treatment Upcoming Encounters Date Type Department Care Team (Late st Contact Info) Description 06/30/2025 9:45 AM CDT Office Visit [facility] [place] [address] [place] [address] Abelino Suggs MD Three [facility], [address] [place] [address] 11/17/2025 1:40 PM WELDING MACHINE OPERATOR THERMIT Office Visit [facility] Family & Internal Medicine - [place] [address] [place] [address] Melanie Oliva FNP [address] [place] [address] documented as of this encounter Visit Diagnoses Not on filedocumented in this encounter Additional Health Concerns Assessment Noted Time PHQ-9 Depression Total Score: 0 06/08/20 9:14 AM CDT documented as of this encounter Care Teams Database Specialist Relationship Specialty Start Date End Date Shira Alcocer MD PCP - General FAMILY PRACTICE 06/08/21 07/09/24 Marquez Ngo MD [address] [place] [address], [address] [address] PCP - General FAMILY PRACTICE 07/10/24 10/07/24 Melanie Oliva FNP [address] [place] [address] PCP - General Nurse Practitioner Family 10/08/24 Abelino Suggs MD [facility], [address] [place], [place] [address] Physician CARDIOVASCULAR DISEASE 09/19/23 Pancho Young MD [facility], [address] [place] [address] Consulting Physician ORTHOPAEDIC SURGERY 09/19/23 documented as of this encounter
--- OUTSIDE RECORDS SUMMARY | 2025-06-21 11:11 | XMS_ITS | Encounter Summary ---
Author Organization [facility] Address [address] [place] [address] Phone Care Team Providers Care Compliance Representative Name Role Phone Shira Alcocer MD Primary Care Provider [phone] Derrick Varghese MD Unavailable [phone] Saroj Cornejo [facility] Unavailable Unavaila Talia Knowles RN Unavailable Unavailable [...] on file Legal Sex Female 3:12 AM INSTRUMENTAL MUSICIAN Gender Identity Not on file Sexual Orientation [...] on filedocumented in this encounter Care Teams Compliance Representative Relationship Specialty Start Date End Date Shira Alcocer MD [address] [address] PCP - General Family Practice 06/11/21 Derrick Varghese MD [address] [facility], [address] [address] PCP - Home Infusion Attending Internal Medicine 02/24/25 Saroj Cornejo, [facility] Pharmacist Pharmacy 03/04/25 Talia Reynolds, [facility] 03/06/25 documented as of this encounter
--- OUTSIDE RECORDS SUMMARY | 2025-06-21 11:11 | XMS_ITS | Encounter Summary ---
Author Organization [facility] Address [address] [place] [address] Care Team Providers Care Java Spring Developer Name Role Phone Shira Alcocer MD Primary Care Provider [phone] Derrick Varghese MD Unavailable Saroj Cornejo [facility] Unavailable Unavaila Talia Knowles RN Unavailable Unavailable Encounter Details Date Type Department Care Team (Late st Contact Info) Description 06/09/2025 Home Infusion [facility] Home Infusion Therapy [address] [place] [address] Saroj Cornejo [facility] Social History Tobacco Use Types Packs/Day Years [...] on file Legal Sex Female 3:12 AM DISPUTE RESOLUTION SPECIALIST Gender Identity Not on file Sexual Orientation Not on file documented as of this encounter Plan of Treatment Not on file documented as of this encounter Visit Diagnoses Not on filedocumented in this encounter Care Teams Java Spring Developer Relationship Specialty Start Date End Date Shira Alcocer MD [address] [address] PCP - General Family Practice 06/11/21 Derrick Varghese MD [address] [facility], [address] [address] PCP - Home Infusion Attending Internal Medicine 02/24/25 Saroj Cornejo, [facility] Pharmacist Pharmacy 03/04/25 Talia Reynolds, [facility] 03/06/25 documented as of this encounter
--- OUTSIDE RECORDS SUMMARY | 2025-06-21 11:11 | XMS_ITS | Encounter Summary ---
Author Organization [facility] Address [address] [place] [address] Care Team Providers Care Welding Tester Name Role Phone Abelino Suggs MD Unavailable [phone] Pancho Young MD Unavailable Unavailable Tien VII, Marquez Allan MD Primary Care Prov ider Melanie Oliva Primary Care Provider [phone] Encounter Details Date Type Department Care Team (Late st Contact Info) Description 08/27/2024 MyChart Message Enc [facility] Medical Group Family Medicine - [place] [address] [facility], [address] [place] [address] [place] [address] [place] [id number] [place] Social History Tobacco Use Types Packs/Day [...] Sex Assigned at Female 11/14/2024 1:31 PM TRANSPORT COORDINATOR Legal Sex Female 7:06 PM CDT Gender Identity Female 11/14/2024 1:31 PM TRANSPORT COORDINATOR Sexual Orientation Not on file documented as of this encounter Plan of Treatment Upcoming Encounters Date Type Department Care Team (Late st Contact Info) Description 06/30/2025 9:45 AM CDT Office Visit [facility] [address] [place] [address] Abelino Suggs MD [facility], Suite [facility] [place] [address] 11/17/2025 1:40 PM TRANSPORT COORDINATOR Office Visit [facility] Medical Group Family & Internal Medicine - [place] [address] [place] [address] Melanie Oliva FNP [address] [place] [address] documented as of this encounter Visit Diagnoses Not on filedocumented in this encounter Additional Health Concerns Assessment Noted Time PHQ-9 Depression Total Score: 0 06/08/20 21 9:14 AM CDT documented as of this encounter Care Teams Welding Tester Relationship Specialty Start Date End Date Tien VII, Marquez Allan MD [address] [place] [address] PCP - General FAMILY PRACTICE 07/10/24 10/07/24 Melanie Oliva FNP [facility] [place] [address] PCP - General Nurse Practitioner Family 10/08/24 Abelino Suggs MD [facility], Suite [facility] [place] [address] Physician CARDIOVASCULAR DISEASE 09/19/23 Pancho Young MD [facility], [address] [place] [address] Consulting Physician ORTHOPAEDIC SURGERY 09/19/23 documented as of this encounter
--- OUTSIDE RECORDS SUMMARY | 2025-06-21 11:11 | XMS_ITS | Clinical Summary ---
Author Organization [facility] Address [address] [place] [address] Phone Care Team Providers Care Manager Of Drilling Name Role Phone Moris Duncan MD Primary Care Provider [phone] Allergies Active Allergy Reactions Criticality Noted Date [...] MD Referring Provider: Deborah Quiroz MD [address] [facility] [place] [address] [place] [address] Other: Problem Noted Date Diagnosed Date Diffuse [...] Recently Relevant to Health Maintenance Care Teams Manager Of Drilling Relationship Specialty Start Date End Date Moris Duncan MD [address] [place] [address] PCP - General Family Practice 01/06/14
--- NOTE | 2025-06-21 11:18 | ED.FALL ---
HPI - Fall General Chief Complaint: Fall Stated Complaint: fall Time Seen by Provider: 06/21/25 11:05 Source: patient Mode of arrival: ambulatory Limitations: no limitations History of Present Illness HPI Narrative: Had some alcohol on board last night, tripped and fell landed on the left arm. Denies other injuries. Patient is not on anticoagulant or anti-platelet medication Related Data Home Medications ?Medication ?Instructions ?Recorded ?Confirmed ?Last Taken ?Type adalimumab 40 mg/0.8 mL 40 mg subcut Q14D 02/06/20 11/30/20 Unknown History subcutaneous syringe kit (Humira) cholecalciferol (vitamin D3) 25 25 mcg PO DAILY 02/06/20 11/30/20 Unknown History mcg (1,000 unit) capsule folic acid 400 mcg tablet 0.4 mg PO DAILY 02/06/20 11/30/20 Unknown History meloxicam 15 mg tablet 15 mg PO DAILY 02/06/20 11/30/20 Unknown History multivitamin 1 cap PO DAILY 02/06/20 11/30/20 Unknown History omega-3 fatty acids-fish oil 360 1 cap PO DAILY 02/06/20 11/30/20 Unknown History mg-1,200 mg capsule (Fish Oil) aspirin 81 mg tablet,delayed 81 mg PO DAILY 02/14/20 11/30/20 Unknown History release methotrexate (PF) 25 mg/0.4 mL 10 mg subcut WEEKLY 11/30/20 11/30/20 Unknown History subcutaneous auto-injector Allergies Allergy/AdvReac Type Severity Reaction Status Date / Time cefaclor Allergy Unknown Skin Verified 03/05/25 14:25 Reaction CECLOR Allergy Unknown ITCHY MOUTH Uncoded 03/05/25 14:25 Review of Systems Review of Systems: All systems reviewed & are unremarkable except as noted in HPI and below PMFSH Surgical History Surgical History H/O blepharoplasty (~2009) History of lumpectomy of right breast (~2005) H/O eye surgery (~2008) History of carpal tunnel surgery (~2004) History of cataract surgery (~2008) H/O: hysterectomy (~1983) H/O umbilical hernia repair (~2017) Hx of tonsillectomy Family History Family History Sibling Family history of bipolar disorder Family history of elevated blood lipids Acute myocardial infarction Family history of coronary artery disease Father Hypertension Family history of elevated blood lipids Family history of Alzheimer's disease Family history of coronary artery disease Grandparent Family history of elevated blood lipids, Onset Age: 42 Acute myocardial infarction, Onset Age: 42 Cerebrovascular accident, Onset Age: 42 Family history of malignant neoplasm of breast Family history of coronary artery disease, Onset Age: 42 Social History Social History Smoking status: Never smoker Alcohol intake: current Exam Narrative: General appearance: Well-developed, well-nourished Skin: Normal color Head: Normocephalic, nontraumatic Eyes: Clear conjunctiva ENT: Oropharynx normal, ears normal, nose normal Neck: Supple, nontender Chest and respiratory: Airway patent, no respiratory distress, no accessory muscle use Heart: Regular rate/rhythm Abdomen: Soft, nontender, no organomegaly, quiet bowel sounds Vascular: Normal peripheral pulses, normal capillary refill. 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, no gross motor deficit Course Vital Signs Vital signs: Vital Signs Temperature 37.1 C 06/21/25 09:05 Pulse Rate 80 06/21/25 09:05 Respiratory Rate 18 06/21/25 09:05 Blood Pressure 126/79 06/21/25 09:05 Pulse Oximetry 99 06/21/25 09:05 Oxygen Delivery Room Air 06/21/25 09:05 Temperature 37.1 C 06/21/25 09:05 Pulse Rate 80 06/21/25 09:05 Respiratory Rate 18 06/21/25 09:05 Blood Pressure 126/79 06/21/25 09:05 Pulse Oximetry 99 06/21/25 09:05 Oxygen Delivery Room Air 06/21/25 09:05 Discharge Plan Discharge Clinical Impression: Arm fracture, left Patient Disposition: Home Condition: Stable Instructions: Arm Fracture in Adults (DC) Additional Instructions: Return if symptoms are worsening , call orthopedic for appointment, take Tylenol as as needed for aches and pain, continue home medications. Patient Language: American Prescriptions: New hydrocodone-acetaminophen 5-325 mg tablet 1 tablet PO Q4H Qty: 20 0RF hydrocodone-acetaminophen 5-325 mg tablet 1 tablet PO Q4H Qty: 20 0RF No Action aspirin 81 mg tablet,delayed release (DR/EC) 81 mg PO DAILY fluticasone propionate 50 mcg/actuation spray,suspension 1 spray NASAL BID Qty: 15.8 5RF Rx Instructions: administer into each nostril meloxicam 15 mg tablet 15 mg PO DAILY Humira 40 mg/0.8 mL syringe kit 40 mg SUB-Q Q14D cholecalciferol (vitamin D3) 25 mcg (1,000 unit) capsule 25 mcg PO DAILY folic acid 400 mcg tablet 0.4 mg PO DAILY omega-3 fatty acids-fish oil [Fish Oil] 360-1,200 mg capsule 1 cap PO DAILY multivitamin Capsule 1 cap PO DAILY acyclovir 5 % ointment 1 applic TOPICAL TID Qty: 30 5RF potassium chloride [Klor-Con M20] 20 mEq tablet,ER particles/crystals See Rx Instructions .ROUTE .COMPLEX Qty: 90 3RF Dose Instruction: TAKE 1 TABLET DAILY Rx Instructions: TAKE 1 TABLET DAILY methotrexate (PF) 25 mg/0.4 mL auto-injector 10 mg SUB-Q WEEKLY simvastatin 20 mg tablet See Rx Instructions .ROUTE .COMPLEX Qty: 90 1RF Dose Instruction: TAKE 1 TABLET DAILY Rx Instructions: TAKE 1 TABLET DAILY telmisartan 80 mg tablet See Rx Instructions .ROUTE .COMPLEX Qty: 90 1RF Dose Instruction: TAKE 1 TABLET DAILY Rx Instructions: TAKE 1 TABLET DAILY hydrochlorothiazide 25 mg tablet See Rx Instructions .ROUTE .COMPLEX Qty: 90 1RF Dose Instruction: TAKE 1 TABLET DAILY Rx Instructions: TAKE 1 TABLET DAILY estradiol [Estrace] 0.01 % (0.1 mg/gram) cream 1 g VAGINAL 2XW Qty: 42.5 5RF amlodipine 5 mg tablet 5 mg PO DAILY Qty: 90 1RF Follow-up/Referrals: Fede Craig MD [Physician, Orthopedics] - 06/23/25 KEY,GILSON NEWBERRY [Primary Care Provider]
[2025-06-21] MEDS: HYDROcodone/acetaminophen (*CRX) 5-325 MG TABLET 1 TAB PO (11:23)
[2025-06-21] MEDS: IBUPROFEN 600 MG TABLET PO (11:23)
== END 2025-06-21 12:53 | disposition home or self-care (01) ==
PROVIDERS: Emergency Provider Emergency Medicine; PCP Nurse Practitioner Family
DX: S42.342A Displaced spiral fracture of shaft of humerus, left arm, initial encounter for closed fracture (principal); W01.0XXA Fall on same level from slipping, tripping and stumbling without subsequent striking against object, initial encounter
CPT/HCPCS: 73030; 99284; A4565; A9270